=== PATIENT | female | born 1960 | race Caucasian/White ===

== ENCOUNTER → 2017-11-28 | Day surgery (SDC) | payer OTHER ==
[~2017-11-28] MED LIST: CIPRO500 M1 PO; FLAGYL250 M1 PO; MONTELUKAST SOD10 M1 PO; ZQUIL
--- NOTE | 2017-11-28 17:51 | Operative Report ---
Operative/Inv Procedure Report Surgery Date: 11/28/17 Name of Procedure: cystocele repair with mesh, enterocele and rectocele repair with Acell mesh, urethral sling and cystoscopy Pre-Operative Diagnosis: cystocele grade 4, enterocele grade 4 and rectocele grade 4, stress incontinence Post-Operative Diagnosis: same Estimated Blood Loss: 250cc Surgeon/Security Operations Specialist: Pearl Yoo MD Anesthesia: laryngeal mask airway Implants: vaginal mesh Drains: 16 fr bernstein Specimens: none Complications: none Condition: stable Operative Indication: symptomatic pelvic organ prolapse Operative/Procedure Note Note: Operative report on Nahum Grewal. This is a 56-year-old female with symptomatic pelvic organ prolapse of the bladder, intestines and rectum with stress incontinence. She was not interested in a pessary. She was eager to move forward with prolapse surgery. She was given the risks benefits and alternatives of the surgery and all questions were answered in the office. All consent signing the consent in the holding area all of the risks benefits and alternatives were reviewed again and all questions were answered again. Patient was taken to the operating room placed on the operating table in the supine position. Timeout was performed. IV antibiotics were infused. LMA general anesthesia was started. When she was completely anesthetized she was placed the dorsal lithotomy position. She was shaved to the genitalia region. Stool was evacuated from her rectal vault prior to proceeding with the surgery. She was prepped and draped in the standard sterile fashion. Bernstein catheter was placed and the bladder was drained. The Bernstein was clamped and placed on the abdomen. A Fontana retractor was placed with 6 stay hooks. The cystocele portion of the case was started with 1% lidocaine with epinephrine infiltrated into the anterior vaginal wall. An incision was made from the bladder neck to the vaginal apex. The vaginal flaps are created taking care not to injure the bladder. Once the bladder was completely dissected free and the retroperitoneal space was entered the sacrospinous process was easily palpated and the ligaments were clear on both sides. The Unasyn was then opened and used to place the Prolene sutures through the ligament and the bladder neck on the right and left side. The first By mouth thin device was defective and a new one had to be open. The Restoril Coloplast mesh was then opened and used to elevate the cystocele. The 4 Prolene sutures were placed through the mesh arms and sutured down. Prior to doing this 10 mL of methylene blue were given through the IV to check for the patency of the ureters later. 2-0 Vicryl sutures were placed at the bladder neck and at the apex to secure the mesh prior to tying down the 4 Prolene sutures. Once they were tied down the bladder was elevated. The area was grossly irrigated with bacitracin irrigation. At this time the Bernstein was removed and a cystoscopy was performed. The bladder was globally inspected and there were no abnormalities. There were no tumors no trabeculation and the ureters were identified. There was excellent efflux from both ureteral orifices. Bladder was emptied with the Bernstein again. The anterior vaginal wall was then closed with 2-0 Vicryl running suture locking every third suture. Attention was then turned to the sling portion of the case. 1% lidocaine with epinephrine was infiltrated into the anterior vaginal wall beneath the urethra. Incision was made and the vaginal flaps were created taking care not to injure the urethra with the dissection carried to the obturator space. The Altis Sling kit was then opened and the sling was placed with the trochars provided. Sling was placed in a tension-free manner and tightened with a DeBakey between the urethra and the sling. Once was seen to be in good position the tightening Prolene suture was cut. The area was copiously irrigated with bacitracin irrigation and the incision was closed with 3-0 Vicryl running locking suture every third. There was no mesh in the vaginal fornices. Attention was then turned to the posterior portion of the vaginal wall. The Fontana was repositioned. 1% lidocaine with epinephrine was infiltrated into the posterior wall taking care not to injure the rectum with dissection. The vaginal lr were dissected free from the rectum without injuring the rectum. Periodic rectal exams were performed to ensure that there was no rectal injury. 2-0 Vicryl interrupted sutures were placed into the fascial defect from the vaginal apex to the posterior fourchette. The Acell mesh which had been soaking for 20 minutes is then used over the fascial defect and interrupted sutures were tied down. The rectocele was nicely reduced and periodic rectal exams showed no injury. However the enterocele was adhered to the rectocele and needed to be dissected free. The peritoneum was entered and this was closed with running 3-0 Vicryl suture. The posterior vaginal wall was then closed using interrupted 2-0 Vicryl sutures from the apex down to the posterior fourchette. 2 inch vaginal packing with bacitracin ointment was placed in the vaginal vault. Sponge and needle count were correct at the end of the case. Patient tolerated procedure well. Findings: no mesh in bladder, urethra or vaginal fornices good ureteral efflux bilaterally with cystoscopy Discharge Disposition: PACU
== END ==
LOC: STS 02:19
DX: N81.10 Cystocele, unspecified (principal); N81.6 Rectocele; N39.3 Stress incontinence (female) (male); I10 Essential (primary) hypertension; I25.10 Atherosclerotic heart disease of native coronary artery without angina pectoris; Z98.61 Coronary angioplasty status; D68.2 Hereditary deficiency of other clotting factors; K21.9 Gastro-esophageal reflux disease without esophagitis
CPT/HCPCS: C1771; C1781; J0690; J2250; J2405; Q9968

== ENCOUNTER 2018-07-04 16:57 | Inpatient (IN) | payer OTHER ==
[~2018-07-04] VITALS: Ht 162.6 cm; Wt 85.0 kg
[2018-07-04 17:53] LABS: ABSOLUTE BASOPHIL COUNT 0.1 /CUMM (0.0-0.2); ABSOLUTE EOSINOPHIL COUNT 0 /CUMM (0.0-0.7); ABSOLUTE LYMPH COUNT 2.2 /CUMM (1.2-3.4); ABSOLUTE MONOCYTE COUNT 0.7 /CUMM (0.10-0.60); BASOPHIL % 0.3 % (0.0-2.0); EOSINOPHIL % 0.2 % (0-5); HEMATOCRIT 40.9 % (37-47); MEAN CORPUSCULAR HGB 29.3 PG (27.0-31.0); MEAN CORPUSCULAR HGB CONC 33.9 G/DL (33.0-37.0); MEAN CORPUSCULAR VOLUME 86.6 FL (81.0-99.0); MEAN PLATELET VOLUME 7.6 FL (7.4-10.4); PLATELET COUNT 365 /CUMM (130-400); RBC DISTRIBUTION WIDTH 14.5 % (11.5-14.5); RED BLOOD CELL CT 4.72 /CUMM (4.20-5.40); WHITE BLOOD CELL COUNT 15.1 /CUMM (4.8-10.8)
--- NOTE | 2018-07-04 18:08 | ED GI/GU/ABDOMINAL COMPLAINT ---
History of Present Illness General Chief Complaint: Abdominal Pain/Flank Pain Stated Complaint: SENT BY URGENT CARE FOR ABD. PAIN Source: patient, family, old records Exam Limitations: no limitations Vital Signs & Intake/Output Vital Signs & Intake/Output Vital Signs Date Time Temp Pulse Resp B/P B/P Pulse O2 O2 Flow FiO2 Mean Ox Delivery Rate 07/04 2100 97.7 56 16 122/60 98 Room Air 07/04 1925 96.8 66 18 142/61 100 Room Air 07/04 1917 Room Air 07/04 1702 96.4 56 18 145/77 100 Room Air Allergies Coded Allergies: Influenza Virus Vaccines (RASH, HIVES 06/22/16) Reconcile Medications Aspirin (Ecotrin*) 81 MG TABLET.DR 1 TAB PO DAILY HEART/BLOOD (Reported) Cholecalciferol (Vitamin D3) (Vitamin D) 2,000 UNIT CAPSULE 2 CAP PO DAILY SUPPLEMENT (Reported) Clopidogrel Bisulfate (Clopidogrel) 75 MG TABLET 1 TAB PO DAILY BLOOD THINNER (Reported) Cyclobenzaprine HCl 5 MG TABLET 1 TAB PO QPM MUSCLE SPASMS (Reported) Evolocumab (Repatha Sureclick) 140 MG/ML PEN.INJCTR 140 MG SC Q2W CHOLESTEROL (Reported) Fish Oil/Borage/Flax/Om3,6,9#1 (Triple [place] Complex 3-6-9) (Unknown Strength) CAPSULE 2 CAP PO BID SUPPLEMENT (Reported) Lisinopril 2.5 MG TABLET 1 TAB PO DAILY HEART (Reported) Metoprolol Tartrate 25 MG TABLET 0.5 TAB PO BID HEART (Reported) Montelukast Sodium 10 MG TABLET 1 TAB PO DAILY ALLERGIES (Reported) Multivit-Min/FA/Lycopen/Lutein (Centrum Silver Tablet) 0.4 MG-300 MCG-250 MCG TABLET 1 TAB PO DAILY SUPPLEMENT (Reported) Saccharomyces Boulardii (Probiotic) (Unknown Strength) CAPSULE (Unknown Dose) PO DAILY SUPPLEMENT (Reported) Vitamin B Complex 1 EACH CAPSULE 1 CAP PO DAILY SUPPLEMENT (Reported) Triage Note: PT STATES SHE HAS PAIN IN HER RIGHT SIDE. PT STATES THINKS SHE HAS A UTI FOR THE PAST TWO DAYS. PT DID NOT GO ON ABX. PT STATES THIS PAIN IS IN HER BACK INTO SIDE BILAT. Triage Nurses Notes Reviewed? yes ? N Is pt currently ? No HPI: Patient was sent in from urgent care for evaluation of right upper quadrant pain. Patient states the pain started this morning and has been constant since then. The pain radiates through to her back. The pain is 10 out of 10. Positive nausea and vomiting. The pain is "a really bad hurt." Patient denies any fevers or chills. Patient also states that she has a recurrent UTI and is now getting a pressure sensation in her pubic area. There is no radiation. There are no aggravating or mitigating factors. She rates the pain as moderate on the pain scale. (Rod Carrasquillo MD) Past History Travel History Traveled to [place] past 21 day No Medical History Any Pertinent Medical History? see below for history Neurological: NONE EENT: NONE Cardiovascular: hyperlipidemia, myocardial infarction Respiratory: NONE Gastrointestinal: NONE Hepatic: NONE Renal: KIDNEY STONES Musculoskeletal: NONE Psychiatric: NONE Endocrine: NONE Blood Disorders: NONE Cancer(s): NONE HISTORIAN DRAMATIC ARTS/Reproductive: NONE Surgical History Surgical History: PTCA WITH STENT Psychosocial History Who do you live with Spouse What is your primary language Sudanese Tobacco Use: Quit >30 days ago ETOH Use: denies use Illicit Drug Use: denies illicit drug use Family History Hx Contributory? No (Rod Carrasquillo MD) Review of Systems Review of Systems Constitutional: Reports: no symptoms. EENTM: Reports: no symptoms. Respiratory: Reports: no symptoms. Cardiovascular: Reports: no symptoms. GI: Reports: see HPI, abdominal pain. Genitourinary: Reports: see HPI. Musculoskeletal: Reports: no symptoms. Skin: Reports: no symptoms. Neurological/Psychological: Reports: no symptoms. Hematologic/Endocrine: Reports: no symptoms. Immunologic/Allergic: Reports: no symptoms. All Other Systems: Reviewed and Negative (Rod Carrasquillo MD) Physical Exam Physical Exam General Appearance: well developed/nourished, alert, awake, anxious, moderate distress Head: atraumatic, normal appearance Eyes: Bilateral: PERRL, EOMI. Ears, Nose, Throat, Mouth: hearing grossly normal, DRY MUCOSA Neck: normal inspection, supple, full range of motion Respiratory: normal breath sounds, chest non-tender, no respiratory distress, lungs clear Cardiovascular: regular rate/rhythm, normal peripheral pulses Gastrointestinal: normal bowel sounds, non-tender, no organomegaly, guarding, tenderness Back: normal inspection, normal range of motion Extremities: normal range of motion Neurologic/Psych: no motor/sensory deficits, awake, alert, oriented x 3, normal gait, normal mood/affect Skin: intact, normal color, warm/dry Core Measures ACS in differential dx? No Sepsis Present: No Sepsis Focused Exam Completed? No (Foreign LUNA,Rod Lowry) Progress Differential Diagnosis: biliary colic, cholecystitis, diverticulitis, gastritis, hepatitis, ischemic bowel, inflamm bowel dis, pancreatitis, peptic ulcer, PUD/ GERD, UTI/pyelo Plan of Care: Orders Procedure Date/time Status Clear Liquid Diet 07/[address] in observation 07/04 2315 Active Misc Message 07/04 2241 Active ED Holding Orders 07/04 2241 Active Vital Signs 07/04 2241 Active Code Status 07/04 2241 Active Add-on Test (ER Only) 07/04 181 Active EKG 07/04 181 Active TROPONIN LEVEL 07/04 174 Complete LIPASE 07/04 174 Complete AMYLASE 07/04 174 Complete URINALYSIS 07/04 170 Complete HIGH SENSITIVITY CRP 07/04 1709 Complete COMPREHENSIVE METABOLIC PANEL 07/04 1709 Complete CBC WITHOUT DIFFERENTIAL 07/04 170 Complete Laboratory Tests 07/04/18 1925: Urine Color YEL, Urine Clarity HAZY H, Urine pH 6.0, Ur Specific [place] 1.010, Urine Protein NEG, Urine Ketones 15 H, Urine Nitrite POS H, Urine Bilirubin NEG, Urine Urobilinogen 0.2, Ur Leukocyte Esterase LARGE H, Ur Microscopic SEDIMENT EXAMINED, Urine RBC 1-3, Urine WBC 25-50 H, Ur Epithelial Cells RARE, Urine Bacteria MANY H, Urine Hemoglobin MOD H, Urine Glucose NEG 07/04/18 1741: Anion Gap 9, Estimated GFR > 60, BUN/Creatinine Ratio 25.7 H, Glucose 109 H, Calcium 9.9, Total Bilirubin 0.7, AST 33, ALT 33, Alkaline Phosphatase 88, Troponin I < 0.01, C-React Prot High Sens 10.1 H, Total Protein 7.7, Albumin 4.5, Globulin 3.2, Albumin/Globulin Ratio 1.4, Amylase 55, Lipase 48, CBC w Diff NO MAN DIFF REQ, RBC 4.72, MCV 86.6, MCH 29.3, MCHC 33.9, RDW 14.5, MPV 7.6, Gran % 80.0 H, Lymphocytes % 14.5 L, Monocytes % 5.0, Eosinophils % 0.2, Basophils % 0.3, Absolute Granulocytes 12.0 H, Absolute Lymphocytes 2.2, Absolute Monocytes 0.7 H, Absolute Eosinophils 0, Absolute Basophils 0.1 Initial ED EKG: PENDING Hand-Off Endorsed To: Jordin Mendoza MD Endorsed Time: 1899 Pending: CT, EKG (Foreign LUNA,Rod Lowry) Radiology Impression: REPORT REVIEWED, LARGE GALLSTONE BUT NO INDICATION OF ACUTE CHOLECYSTITIS. Comments: 07/04/2018 7:24:31 PM patient signed out to me by Dr. Carrasquillo at shift exchange specialist. 07/04/2018 8:43:33 PM I have updated Rachel on her test results. Unfortunately she is quite nauseous and is vomiting in a basin. I have ordered additional Zofran and will contact the surgeons for possible cholecystectomy. 07/04/2018 9:23:39 PM patient's case discussed with Uzair Murcia MD, surgical PA paged. 07/04/2018 10:00:30 PM patient has been evaluated by the surgical PA who feels the patient would benefit from hospitalization to see have her abdominal pain settles on a low-fat diet. He states that the patient is not a candidate for surgical intervention given her recent history of stent placement for coronary artery disease and interactive urinary tract infection. 07/04/2018 10:14:01 PM patient's case discussed with Dr. Haney. 07/04/2018 11:07:50 PM awaiting call from case management to decide on patient's hospitalization (full admission versus observation stay). (Jordin Mendoza MD) Departure Departure Disposition: STILL A PATIENT Condition: Stable Clinical Impression Primary Impression: Upper abdominal pain, unspecified Referrals: Ling Armenta MD (PCP/Family) Departure Forms: Customer Survey General Discharge Information (Rod Carrasquillo MD) Observation Note Spoke With: Evi Haney MD Patient In: Non-ED OBS Care Area Rationale for Observation: My rational for observation is as follows patient presents clinically with biliary colic and does have a large gallstone on CAT scan. She is not a candidate for traditional cholecystectomy given her current urinary tract infection and a recent cardiac stenting and treatment with Plavix. The patient has required IV narcotic pain relievers and IV antiemetics to control symptoms. I do not feel she can be treated adequately as an outpatient under the circumstances. She would likely return in worse clinical condition including dehydration given her inability to take oral nutrition or with cholecystitis if her gallbladder become secondarily infected. Patient's urinary tract infection should be treated with antibiotics and monitored for clearing. Patient should have surgical consultation for serial abdominal examinations and serial vital signs/blood tests determinations to monitor for acute cholecystitis or biliary obstruction. This patient's pain is poorly controlled or her clinical condition deteriorates then a more aggressive surgical intervention or percutaneous cholecystostomy should be considered. (Kelly LUNA,Jordin Marshall) Critical Care Note Critical Care Note Critical Care Time: 30-74 min (Kelly LUNA,Jordin Marshall)
[2018-07-04] MEDS ORDERED: LISINOPRIL2.5 M1 PO (18:17)
[2018-07-04] MEDS ORDERED: CLOPIDOGREL75 M1 PO (18:18)
[2018-07-04] MEDS ORDERED: CENTRUM SILVER1 EAC3 PO (18:19)
[2018-07-04] MEDS ORDERED: VITAMIN D2000 UNIT PO (18:19)
[2018-07-04] MEDS ORDERED: METOPROLOL TART25 M1 PO (18:19)
[2018-07-04] MEDS ORDERED: MONTELUKAST SOD10 M1 PO (18:20)
[2018-07-04] MEDS ORDERED: ASPIRIN EC81 M1 PO (18:20)
[2018-07-04] MEDS ORDERED: TRIPLE OMEGA C400 MG PO (18:21)
[2018-07-04] MEDS ORDERED: PROBIOTIC250 MG PO (18:21)
[2018-07-04] MEDS ORDERED: REPATHA SU140 MG/1 M SC (18:22)
[2018-07-04] MEDS ORDERED: VITAMIN B COMP1 EACH PO (18:22)
[2018-07-04] MEDS ORDERED: CYCLOBENZAPRINE5 M2 PO (18:23)
--- NOTE | 2018-07-04 20:17 | CT SCAN REPORT ---
EXAMINATION: CT ABDOMEN AND PELVIS WITH CONTRAST CLINICAL INFORMATION: Right upper quadrant pain COMPARISON: 06/22/2016 TECHNIQUE: Multidetector volumetric imaging was performed of the abdomen and pelvis following IV administration of 95 mL of Optiray 320 intravenous contrast. Sagittal and coronal reformatted images were obtained on the technologist's workstation. DLP: 543 mGy-cm FINDINGS: LUNG BASES: The visualized lung bases are unremarkable. LIVER, GALLBLADDER, AND BILIARY TREE: The liver is normal in size, shape, and attenuation. No focal hepatic lesion or biliary ductal dilatation is present. There is a large gallstone. There are no CT findings to suggest acute cholecystitis. No biliary ductal dilatation. PANCREAS: Unremarkable. SPLEEN: Calcified splenic granulomas. ADRENAL GLANDS: Unremarkable. KIDNEYS AND URETERS: The kidneys are normal in size, shape, and attenuation. No hydronephrosis, hydroureter, or calculi seen. No perinephric stranding. BLADDER: Unremarkable. GASTROINTESTINAL TRACT: Marked diverticulosis of the descending and sigmoid colon. No focal inflammatory process or obstruction. ABDOMINAL WALL: No significant hernia is appreciated. LYMPH NODES: Normal. VASCULAR: Unremarkable. PELVIC VISCERA: The uterus is absent. OSSEOUS STRUCTURES: Unremarkable. IMPRESSION: No focal inflammatory process or obstruction. There is extensive sigmoid and descending colon diverticulosis. There is a large gallstone. No CT evidence of acute cholecystitis.
--- NOTE | 2018-07-04 23:05 | History & Physical ---
Mio EspinozaNikolass 07/04/18 8537: General Information and HPI MD Statement: I have seen and personally examined ISABEL WARD and documented this H&P. The patient is a 57 year old F who presented with a patient stated chief complaint of [RUQ pain]. Source of Information: patient Exam Limitations: no limitations History of Present Illness: Ms. Ward is a 57 y/o F with a PMH of factor V deficiency, multiple ME s/p stent, CABG, latest in february on dual antiplt therapy and sciatica who comes in c /o worsening RUQ pain after being evaluated at a Urgent Care center. Pt states the pain started 4 days ago, was prescribed flexeril by her PCP linking it to her sciatica. At this point patient also c/o dysuria that improved with increased water intake, no antibiotics taken at that time. Pain is constant, 5/ 10 at the moment, 10/10 at its worst that started after eating a richter and egg sandwich, that progressively got worse; nonradiating and pulsating in nature, which did not alleviate with tylenol. There is no relation to PO intake. She did vomit once before coming to the ED, 3x while in the ED a nonbloody vomitus. She denies fever, chills, constipation, diarrhea, SOB, chest pain. She has had prior episodes of UTI. Of note, patient does have a surgical history with rectocele, cystocele repair in november. 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 Home Who Do You Live With? self Services at Home: None Primary Language: Macedonian ETOH Use: denies use Illicit Drug Use: denies illicit drug use Functional Ability ADLs Independent: dressing, eating, toileting, bathing. Ambulation: independent IADLs Independent: shopping, housework, finances, food prep, telephone, transportation , medication admin. Review of Systems Review of Systems Constitutional: Reports: see HPI. EENTM: Denies: blurred vision, eye pain, eye drainage, ear discharge, ear pain, throat pain, throat swelling. Cardiovascular: Denies: chest pain, edema, orthopena, palpitations. Respiratory: Denies: cough, hemoptysis, short of breath, sputum production. GI: Reports: see HPI, abdominal pain, nausea, vomiting (NONBLOODY). Denies: constipation, diarrhea, distention, bowel incontinence. Genitourinary: Reports: see HPI, dysuria. Denies: discharge, frequency, hematuria, pain. Musculoskeletal: Reports: back pain. Skin: Reports: no symptoms. Neurological/Psychological: Reports: no symptoms. Hematologic/Endocrine: Reports: no symptoms. Exam & Diagnostic Data Last 24 Hrs of Vital Signs/I&O Vital Signs Date Time Temp Pulse Resp B/P B/P Pulse O2 O2 Flow FiO2 Mean Ox Delivery Rate 07/04 2338 78 18 124/60 97 Room Air 07/04 2100 97.7 56 16 122/60 98 Room Air 07/04 192 96.8 66 18 142/61 100 Room Air 07/04 1917 Room Air 07/04 1702 96.4 56 18 145/77 100 Room Air Intake & Output 07/05 0800 07/05 0000 07/04 1600 Intake Total 1000 Output Total Balance 1000 Intake, IV 1000 Patient 187 lb Weight Weight Reported by Patient Measurement Method Physical Exam General Appearance Alert, Oriented X3, Cooperative, No Acute Distress Skin No Rashes, No Significant Lesion Skin Temp/Moisture Exam: Warm/Dry HEENT Atraumatic, PERRLA, EOMI, Mucous Membr. moist/pink Neck Supple Cardiovascular Regular Rate, Normal S1, Normal S2, No Murmurs Lungs Clear to Auscultation, Normal Air Movement Abdomen Normal Bowel Sounds, Soft, No visible lesions. Soft, nondistended. Tender to deep palpation on particularly in RUQ. Negative solis's. Positive CVA tenderness on the right. Extremities No Clubbing, No Edema Last 24 Hrs of Labs/Vin: Laboratory Tests 07/04/181924: Urine Color YEL, Urine Clarity HAZY H, Urine pH 6.0, Ur Specific [place] 1.010, Urine Protein NEG, Urine Ketones 15 H, Urine Nitrite POS H, Urine Bilirubin NEG, Urine Urobilinogen 0.2, Ur Leukocyte Esterase LARGE H, Ur Microscopic SEDIMENT EXAMINED, Urine RBC 1-3, Urine WBC 25-50 H, Ur Epithelial Cells RARE, Urine Bacteria MANY H, Urine Hemoglobin MOD H, Urine Glucose NEG 07/04/18 1741: Anion Gap 9, Estimated GFR > 60, BUN/Creatinine Ratio 25.7 H, Glucose 109 H, Calcium 9.9, Total Bilirubin 0.7, AST 33, ALT 33, Alkaline Phosphatase 88, Troponin I < 0.01, C-React Prot High Sens 10.1 H, Total Protein 7.7, Albumin 4.5, Globulin 3.2, Albumin/Globulin Ratio 1.4, Amylase 55, Lipase 48, CBC w Diff NO MAN DIFF REQ, RBC 4.72, MCV 86.6, MCH 29.3, MCHC 33.9, RDW 14.5, MPV 7.6, Gran % 80.0 H, Lymphocytes % 14.5 L, Monocytes % 5.0, Eosinophils % 0.2, Basophils % 0.3, Absolute Granulocytes 12.0 H, Absolute Lymphocytes 2.2, Absolute Monocytes 0.7 H, Absolute Eosinophils 0, Absolute Basophils 0.1 Assessment/Plan Assessment: Ms. Ward is a 57 y/o F with a PMH of factor V deficiency, multiple ME s/p stent, CABG, latest in february on dual antiplt therapy and sciatica who comes in c /o worsening RUQ pain. Pt states the pain started 4 days ago, was prescribed flexeril by her PCP. At this point patient also c/o dysuria that improved with increased water intake, no antibiotics. Pain is constant, 5/10 at the moment, 10 /10 at worst that started after eating a richter and egg sandwich, that progressively got worse; nonradiating in nature, that did not alleviate with tylenol. There is no relation to PO intake. She did vomit once before coming to the ED, 3x while in the ED a nonbloody vomitus. She denies fever, chills, constipation, diarrhea, SOB, chest pain. She has had prior episodes of UTI. Of note, patient does have a surgical history with rectocele, cystocele repair in november. In the ED, labs showed noted leukocytosis and a UA indicative of an UTI. She is however afebrile. CT scan did show a large gallstone, though no evidence of acute inflammatory changes. She got a dose of ceftriaxone. Noted negative Solis 's and positive CVA tenderness on the right on physical examination, with reported N/V in multiple occasions. She is admitted to the GEN MED floor for the following issues: PROBLEM LIST #RUQ/R Flank Pain, 2/2 Billiary Collic vs Pyelonephritis Patient's presentation is concerning for both billiary colic and pyelonephritis. Her story of acute worsening after eating a fatty meal would be indicative of billiary pathology, though no findings on CT scan show acute inflammation. Her history of dysuria and UA concerning for UTI is noted; particularly her leukocytosis. We will start IV ceftriaxone qD. She was evaluated by the surgical service who did not feel an inmediate intervention is warranted particularly due to her recent cardiac issues. -Ceftriaxone qD -CBC in the am -F/u BC -F/u surgical consult #H/o CAD s/p PCIs, CABG We will continue her dual antiplatelet therapy. FULL CODE NPO in case surgical intervention is needed DVT PPX subq lovenox As Ranked By This Provider Problem List: 1. Upper abdominal pain, unspecified Core Measures/Misc (07/20) Acute Coronary Syndrome ACS Diagnosis: No Congestive Heart Failure Congestive Heart Failure Diagnosis No Cerebrovascular Accident CVA/TIA Diagnosis: No VTE (View Protocol) VTE Risk Factors Age>40 No Mechanical VTE Prophylaxis d/t N/A MechProphylax Ordered No VTE Pharm Prophylaxis d/t NA PharmProphylax ordered Sepsis (View protocol) Sepsis Present: No If YES complete Sepsis Event Note If YES complete Sepsis Event Note Eulogio LUNA,[facility] 07/05/18 0207: General Information and HPI Allergies/Medications Home Med list Aspirin (Ecotrin*) 81 MG TABLET.DR 1 TAB PO DAILY HEART/BLOOD (Reported) Cholecalciferol (Vitamin D3) (Vitamin D) 2,000 UNIT CAPSULE 2 CAP PO DAILY SUPPLEMENT (Reported) Clopidogrel Bisulfate (Clopidogrel) 75 MG TABLET 1 TAB PO DAILY BLOOD THINNER (Reported) Cyclobenzaprine HCl 5 MG TABLET 1 TAB PO QPM PRN Muscle Spasms (Reported) Evolocumab (Repatha Sureclick) 140 MG/ML PEN.INJCTR 140 MG SC Q2W CHOLESTEROL (Reported) Fish Oil/Borage/Flax/Om3,6,9#1 ([place] Complex 3-6-9) (Unknown Strength) CAPSULE 2 CAP PO BID SUPPLEMENT (Reported) Lisinopril 2.5 MG TABLET 1 TAB PO DAILY HEART (Reported) Metoprolol Tartrate 25 MG TABLET 0.5 TAB PO BID HEART (Reported) Montelukast Sodium 10 MG TABLET 1 TAB PO DAILY ALLERGIES (Reported) Multivit-Min/FA/Lycopen/Lutein (Centrum Silver Tablet) 0.4 MG-300 MCG-250 MCG TABLET 1 TAB PO DAILY SUPPLEMENT (Reported) Saccharomyces Boulardii (Probiotic) (Unknown Strength) CAPSULE (Unknown Dose) PO DAILY SUPPLEMENT (Reported) Vitamin B Complex 1 EACH CAPSULE 1 CAP PO DAILY SUPPLEMENT (Reported) Observation Initial Note - I have personally examined ISABEL WARD on 07/05/18 at 0307. The disposition of ISABEL WARD is uncertain at this time and before a determination can be made, she requires a period of observation for the following reasons [IV narcotics for pain control and treatment of UTI] Core Measures/Misc (07/20) Sepsis (View protocol) If YES complete Sepsis Event Note If YES complete Sepsis Event Note Resident Review Statement Resident Statement: examined this patient, discussed with international controller, reviewed EMR data (avail) Other Findings: 57 yo F with PMH of ME s/p PCI and CABG (last in January 2018), hyperlipidemia and Factor V Leiden mutation presented to the ED for evaluation of abdominal pain that started this morning. The patient states around 4 days ago she developed dysuria which resolved on its own after a day or so. This morning after having breakfast she developed sudden severe right upper quadrant abdominal pain, radiating to her back and groin, 10/10 in severity, accompanied with nausea and nonbloody vomiting. She took some tylenol which did not provide any relief. She states having burning sensation with urination again today. She came in to the ED for further evaluation. ROS: significant for RUQ pain, back pain. Physical Exam: General Appearance: well developed/nourished, alert, awake, mild distress Head: atraumatic, normal appearance Eyes: bilateral: normal appearance and PERRLA. Ears, Nose, Throat, Mouth: hearing and speech normal, no sinus tenderness Respiratory: normal breath sounds, chest non-tender, no respiratory distress, lungs clear Cardiovascular: regular rate/rhythm, normal S1 and S2 Gastrointestinal: soft, diffuse tenderness more prominent on RUQ with negative Solis's sign Back: normal inspection, +ve CVA tenderness on right. Extremities: no edema Skin: normal inspection Assessment: 1. Likely upper urinary tract infection 2. Cholelithiasis 3. CAD s/p PCI and CABG 4. Factor V Leiden mutation Plan: * Admit patient to general medicine in obs. * Continue IV Ceftriaxone 1g daily. * Follow up blood cultures * Follow up urine urine * Pain control with IV Morphine and percocet as needed. * There does not appear to be any need of acute surgical intervention given the lack of cholecystitis. The abdominal pain could be secondary to biliary colic. While she does not have imaging findings of perinephric stranding, she does have a white count and R CVA tenderness concerning for pylonephritis. * Hydrate with D5-1/2NS. * Diet: NPO - for possible surgical intervention. Diet should be heart healthy ( low fat) when restarted. * DVT Prophylaxis: SC Lovenox * Code: Full Code Medina LUNA,Evi 07/05/18 0214: Core Measures/Misc (07/20) Sepsis (View protocol) If YES complete Sepsis Event Note If YES complete Sepsis Event Note Attending MD Review Statement Attending Statement Attending MD Statement: examined this patient, discuss w/resident/PA/LIBERAL ARTS TEACHER, agreed w/resident/PA/LIBERAL ARTS TEACHER, reviewed EMR data (avail), discussed with nursing, amended to note Attending Assessment/Plan: Patient is a 57-year-old female with history significant for coronary artery disease status post CABG and stent placement on dual antiplatelet therapy. History also significant for 445 deficiency. Presents with complaint of right upper quadrant abdominal discomfort. States the pain has been going on for about 4 days. She also gives history of back pain recently for which she saw her PCP and she was prescribed Flexeril. Patient also admits to complaints of dysuria. She had the emergency room afebrile hemodynamically stable. CT of the abdomen was only significant for a large gallstone. There is no evidence of hepatobiliary obstruction or inflammation. Her transaminase levels are within normal limits. Case was discussed with the surgical service by the ER staff. In the absence of need for urgent surgical intervention patient was referred to the medical service for further evaluation and management. On examination she appears to be in obvious discomfort complaining of diffuse abdominal pain. She reports that pain is occasionally located in the right upper quadrant. Abdomen is obese, soft, diffuse tenderness with no rebound or guarding. Normal bowel sounds. She does report some discomfort in the right costovertebral angle on palpation. Heart sounds are regular. Lungs are clear to auscultation bilaterally. She has no peripheral edema. EKG shows normal sinus rhythm with nonspecific T-wave changes. First troponin is negative. Problems: 1. Abdominal pain; query etiology. 2. Urinary tract infection 3. Coronary artery disease 4. Factor V deficiency. Plan: -Keep n.p.o. Hydrate with D5 half-normal saline at 100 cc an hour. -Optimize pain control. May utilize Tylenol IV. May utilize intravenous opioids for breakthrough pain. -Etiology of pain is unknown. The large gallstone does raise concern for biliary spasms. One would typically not expect a urinary tract infection particularly an upper urinary tract infection to cause such degree of pain without other markers of infection such as leukocytosis or fever. -Continue empiric antibiotic therapy with IV Rocephin. Follow-up urine cultures and blood cultures. -Awaiting formal consult from the general surgery service. -Continue her cardiac regimen including her dual antiplatelet therapy. Recommend consultation with the cardiology service regarding recommendations for interruption of antiplatelet therapy should she require surgical intervention. -Repeat EKG. Obtain second set of cardiac enzymes.
[2018-07-05 01:50] VITALS: BP 144/78
[2018-07-05 07:07] VITALS: BP 126/74
--- NOTE | 2018-07-05 08:40 | PN- Housestaff ---
See Addendum Subjective Follow-up For: Upper Urinary Tract Infection Cholelithiasis History of CAD s/p PCI + CABG Factor V Leiden History Subjective: Patient seen this morning with report from [facility]. She continues to have right upper quadrant abdominal pain with mild improvement since admission. She has had one episode of nonbilious non bloody vomitus overnight which she was given reglan for nausea. Patient afebrile since her stay. On IV ceftriaxone. Patients fluids discontinued today and she will be trialed on regular diet. Review of Systems Constitutional: Denies: see HPI. Objective Last 24 Hrs of Vital Signs/I&O Vital Signs Date Time Temp Pulse Resp B/P B/P Pulse O2 O2 Flow FiO2 Mean Ox Delivery Rate 07/05 0908 60 124/70 07/05 0908 60 124/70 07/05 0800 Room Air 07/05 0707 98.6 103 20 126/74 95 / 0422 58 144/78 07/05 0200 97 Room Air 07/05 0150 97.8 58 20 144/78 100 /01 2338 78 18 124/60 97 Room Air 07/04 2100 97.7 56 16 122/60 98 Room Air 07/04 1925 96.8 66 18 142/61 100 Room Air 07/04 1917 Room Air 07/04 1702 96.4 56 18 145/77 100 Room Air Intake & Output 07/05 1600 07/05 0800 07/05 0000 Intake Total 446 1000 Output Total Balance 446 1000 Intake, IV 366 1000 Intake, Oral 80 Number 0 Bowel Movements Patient 187 lb 187 lb Weight Weight Reported by Patient Measurement Method Physical Exam General Appearance: Alert, Oriented X3, Cooperative, Mild Distress Skin: No Rashes, No Breakdown Cardiovascular: Normal S1, Normal S2 Lungs: Clear to Auscultation, Normal Air Movement Abdomen: Normal Bowel Sounds, Soft, No Masses, mild tenderness to palpation in RUQ Neurological: Normal Gait, Normal Speech, Strength at 5/5 X4 Ext, Normal Tone Extremities: No Clubbing, No Cyanosis, No Edema Vascular: Normal Pulses, Pulses Symmetrical Current Medications: Current Medications Sig/Kalyani Start time Last Medication Dose Route Stop Time Status Admin Acetaminophen 650 MG Q6P PRN 07/04 2330 AC 07/05 PO 09 Aspirin Buffered 81 MG DAILY 07/05 09 AC 07/05 PO 09 Ceftriaxone Sodium 1,000 MG DAILY 07/05 2100 DC IV Ceftriaxone Sodium 1,000 MG 2100 07/05 2100 AC IV Ceftriaxone Sodium 0 .STK-MED ONE 07/04 2216 DC .ROUTE Ceftriaxone Sodium 1,000 MG ONCE ONE 07/04 2145 DC 07/04 IV 07/04 2146 221 Cholecalciferol 4,000 IU DAILY 07/05 09 AC 07/05 PO 0907 Clopidogrel Bisulfate 75 MG DAILY 07/05 900 AC 07/05 PO 0908 Cyclobenzaprine HCl 5 MG QPM PRN 07/05 0215 AC PO Dextrose/Sodium 1,000 ML Q10H 07/05 0230 DC 07/05 Chloride IV 0240 Enoxaparin Sodium 40 MG DAILY 07/05 09 AC 07/05 SC 0907 Hydromorphone HCl 0.4 MG ONCE ONE 07/05 08 DC IV 07/05 08 Hydromorphone HCl 0.4 MG ONCE ONE 07/05 0400 DC 07/05 IV 07/05 0401 0430 Hydromorphone HCl 0 .STK-MED ONE 07/04 1915 DC .ROUTE Hydromorphone HCl 1 MG ONCE ONE 07/04 190 DC 07/04 IV 07/04 190 192 Ketorolac 0 .STK-MED ONE 07/04 2010 DC Tromethamine .ROUTE Lisinopril 2.5 MG DAILY 07/05 900 AC 07/05 PO 09 Metoclopramide HCl 10 MG Q6P PRN 07/05 0400 AC 07/05 IV 0913 Metoclopramide HCl 10 MG ONCE ONE 07/04 2145 DC 07/04 IV 07/04 2146 214 Metoclopramide HCl 0 .STK-MED ONE 07/04 2139 DC .ROUTE Metoprolol Tartrate 12.5 MG BID 07/05 0300 AC 07/05 PO 0908 Montelukast Sodium 10 MG 07/05 2100 AC PO Morphine Sulfate 2 MG Q6P PRN 07/04 2330 AC IV Morphine Sulfate 0 .STK-MED ONE 07/04 181 DC .ROUTE Morphine Sulfate 4 MG ONCE ONE 07/04 1815 DC 07/04 IV 07/04 1816 1838 Omeprazole 20 MG ONCE ONE 07/05 09 DC 07/05 PO 07/05 09 09 Ondansetron HCl 0 .STK-MED ONE 07/04 2049 DC .ROUTE Ondansetron HCl 4 MG ONCE ONE 07/04 2045 DC 07/04 IV 07/04 Ondansetron HCl 4 MG ONCE ONE 07/04 183 DC 07/04 IV 07/04 1831 183 Ondansetron HCl 0 .STK-MED ONE 07/04 1822 DC .ROUTE Oxycodone/ 1 TAB Q6P PRN 07/04 2330 AC Acetaminophen PO Sodium Chloride 1,000 ML BOLUS ONE 07/04 181 DC 07/04 IV 07/04 1914 1838 Last 24 Hrs of Lab/Vin Results Last 24 Hrs of Labs/Mics: Laboratory Tests 07/05/18 1100: Sodium Pending, Potassium Pending, Chloride Pending, Carbon Dioxide Pending, Anion Gap Pending, BUN Pending, Creatinine Pending, BUN/Creatinine Ratio Pending , CBC w Diff Pending, WBC Pending, RBC Pending, Hgb Pending, Hct Pending, MCV Pending, MCH Pending, MCHC Pending, RDW Pending, Plt Count Pending, MPV Pending 07/05/18 0325: Troponin I 0.02 07/04/18 1925: Urine Color YEL, Urine Clarity HAZY H, Urine pH 6.0, Ur Specific Elliott 1.010, Urine Protein NEG, Urine Ketones 15 H, Urine Nitrite POS H, Urine Bilirubin NEG, Urine Urobilinogen 0.2, Ur Leukocyte Esterase LARGE H, Ur Microscopic SEDIMENT EXAMINED, Urine RBC 1-3, Urine WBC 25-50 H, Ur Epithelial Cells RARE, Urine Bacteria MANY H, Urine Hemoglobin MOD H, Urine Glucose NEG 07/04/18 1741: Anion Gap 9, Estimated GFR > 60, BUN/Creatinine Ratio 25.7 H, Glucose 109 H, Calcium 9.9, Total Bilirubin 0.7, AST 33, ALT 33, Alkaline Phosphatase 88, Troponin I < 0.01, C-React Prot High Sens 10.1 H, Total Protein 7.7, Albumin 4.5, Globulin 3.2, Albumin/Globulin Ratio 1.4, Amylase 55, Lipase 48, CBC w Diff NO MAN DIFF REQ, RBC 4.72, MCV 86.6, MCH 29.3, MCHC 33.9, RDW 14.5, MPV 7.6, Gran % 80.0 H, Lymphocytes % 14.5 L, Monocytes % 5.0, Eosinophils % 0.2, Basophils % 0.3, Absolute Granulocytes 12.0 H, Absolute Lymphocytes 2.2, Absolute Monocytes 0.7 H, Absolute Eosinophils 0, Absolute Basophils 0.1 Assessment/Plan Assessment: 57 yo F with PMH of MD s/p PCI and CABG (last in January 2018), hyperlipidemia and Factor V Leiden mutation presented to the ED for evaluation of abdominal pain that started morning of admission. The patient states around 4 days ago she developed dysuria which resolved on its own after a day or so. This morning after having breakfast she developed sudden severe right upper quadrant abdominal pain, radiating to her back and groin, 10/10 in severity, accompanied with nausea and nonbloody vomiting. She took some tylenol which did not provide any relief. She states having burning sensation with urination again today. She came in to the ED for further evaluation. Case was discussed with the surgical service by ER staff and in absence of surgical intervention she was referred to medical service for furthe revaluation. ED, labs showed noted leukocytosis and a UA indicative of an UTI. She is however afebrile. CT scan did show a large gallstone, though no evidence of acute inflammatory changes. She got a dose of ceftriaxone. Noted negative Solis's and positive CVA tenderness on the right on physical examination, 07/05: Patient has leukocytosis of 14.8 on day 2 IV Rocephin with positive urine culture of E. Coli that is wesley senstivie. Imaging noted for gallstones and negative for cholecystitis. + CVA tenderness on examination. Patient afebrile. Advanced to a regular diet. PROBLEM LIST: 1. Likely upper urinary tract infection 2. Cholelithiasis 3. CAD s/p PCI and CABG 4. Factor V Leiden mutation PLAN: * Continue observation on general medicine flow * IV Ceftriaxone Day 2 1g Daily * Urine culture from 07/02 positive for E. Coli that is wesley-senstive * Patient initiallyhydrated with D5 1/2 NS at 100/hr - discontinued today as patietn will be on a Regular Diet * Pain Control: Tylenol, Flexeril, Morphine 2mg Q6 PRN IV, Percocet Q6 PRN * Continue cardiac regimen and her dual antiplatelet therapy Code Status: Full Code Diet: Advanced to regular - see as tolerated DVT PPX: ALPS ambulation Problem List: 1. Upper abdominal pain, unspecified Pain Ratin Pain Location: RUQ pain Pain Goal: Pain 4 or less Pain Plan: as per pain pathway Tomorrow's Labs & Rationales: cbc bep
[2018-07-05 11:18] LABS: ABSOLUTE BASOPHIL COUNT 0 /CUMM (0.0-0.2); ABSOLUTE EOSINOPHIL COUNT 0 /CUMM (0.0-0.7); ABSOLUTE GRANULOCYTE CT 12.2 /CUMM (1.4-6.5); ABSOLUTE LYMPH COUNT 1.2 /CUMM (1.2-3.4); ABSOLUTE MONOCYTE COUNT 1.3 /CUMM (0.10-0.60); BASOPHIL % 0.3 % (0.0-2.0); EOSINOPHIL % 0 % (0-5); GRANULOCYTE % 82.7 % (42.2-75.2); HEMATOCRIT 37.2 % (37-47); MEAN CORPUSCULAR HGB CONC 34.8 G/DL (33.0-37.0); MEAN CORPUSCULAR VOLUME 86.3 FL (81.0-99.0); MEAN PLATELET VOLUME 7.6 FL (7.4-10.4); PLATELET COUNT 353 /CUMM (130-400); RBC DISTRIBUTION WIDTH 14.3 % (11.5-14.5); RED BLOOD CELL CT 4.31 /CUMM (4.20-5.40); WHITE BLOOD CELL COUNT 14.8 /CUMM (4.8-10.8)
[2018-07-05 14:30] VITALS: BP 118/60
--- NOTE | 2018-07-05 18:21 | Cons- General Surgery ---
General Information and HPI Consulting Request Date of Consult: 07/05/18 Requested By: New Harrison MD Reason for Consult: cholecystitis Source of Information: patient Exam Limitations: no limitations History of Present Illness: CC: abdominal pain HPI: 57-year-old yo ?diabetic ex-smoker overweight, GERD, heterozygous factor V Leiden, history of [place] in 2011 and then recently this past January she's had several coronary stents and also coronary artery bypass 3 vessels and is currently on Plavix, presented to the ER yesterday c/o RUQ / epigastric pain severe (worse yesterday), no prior episodes like this, pain was constant radiates straight through to upper back onset yesterday after a richter and egg and cheese sandwich for breakfast which she hasn't had in a while, as she's been more careful with her diet. There was associated vomiting but no fevers no diarrhea, no particular darkening of urine (ie iced tea) or lightening / loose stools (sotomayor), there is a FHx of gallbladder problems son / daughter. She has also been on Abx for UTI, which have been more common this year. Otherwise no changes bowel habits, weight or appetite. I've reviewed the PFSH. No issues with anesthesia. Family history is also positive for heart disease DM in mother, sister hypertension, father factor 5 Leiden Allergies/Medications Allergies: Coded Allergies: Influenza Virus Vaccines (RASH, HIVES 06/22/16) Home Med List: Aspirin (Ecotrin*) 81 MG TABLET.DR 1 TAB PO DAILY HEART/BLOOD (Reported) Cholecalciferol (Vitamin D3) (Vitamin D) 2,000 UNIT CAPSULE 2 CAP PO DAILY SUPPLEMENT (Reported) Clopidogrel Bisulfate (Clopidogrel) 75 MG TABLET 1 TAB PO DAILY BLOOD THINNER (Reported) Cyclobenzaprine HCl 5 MG TABLET 1 TAB PO QPM PRN Muscle Spasms (Reported) Evolocumab (Repatha Sureclick) 140 MG/ML PEN.INJCTR 140 MG SC Q2W CHOLESTEROL (Reported) Fish Oil/Borage/Flax/Om3,6,9#1 (Triple [place] Complex 3-6-9) (Unknown Strength) CAPSULE 2 CAP PO BID SUPPLEMENT (Reported) Lisinopril 2.5 MG TABLET 1 TAB PO DAILY HEART (Reported) Metoprolol Tartrate 25 MG TABLET 0.5 TAB PO BID HEART (Reported) Montelukast Sodium 10 MG TABLET 1 TAB PO DAILY ALLERGIES (Reported) Multivit-Min/FA/Lycopen/Lutein (Centrum Silver Tablet) 0.4 MG-300 MCG-250 MCG TABLET 1 TAB PO DAILY SUPPLEMENT (Reported) Saccharomyces Boulardii (Probiotic) (Unknown Strength) CAPSULE (Unknown Dose) PO DAILY SUPPLEMENT (Reported) Vitamin B Complex 1 EACH CAPSULE 1 CAP PO DAILY SUPPLEMENT (Reported) Current Medications: Current Medications Sig/Kalyani Start time Last Medication Dose Route Stop Time Status Admin Acetaminophen 650 MG Q6P PRN 07/04 2330 AC 07/05 PO 0914 Aspirin Buffered 81 MG DAILY 07/05 900 AC 07/05 PO 0907 Calcium Carbonate 500 MG Q4 HRS NEEDED PRN 07/05 1445 AC 07/05 PO 1435 Calcium Carbonate 0 .STK-MED ONE 07/05 1433 DC PO Ceftriaxone Sodium 1,000 MG DAILY 07/05 2100 DC IV Ceftriaxone Sodium 1,000 MG 2100 07/05 2100 AC IV Ceftriaxone Sodium 0 .STK-MED ONE 07/04 2216 DC .ROUTE Ceftriaxone Sodium 1,000 MG ONCE ONE 07/04 214 DC 07/04 IV 07/04 2146 2215 Cholecalciferol 4,000 IU DAILY 07/05 09 AC 07/05 PO 09 Clopidogrel Bisulfate 75 MG DAILY 07/05 09 AC 07/05 PO 0908 Cyclobenzaprine HCl 5 MG QPM PRN 07/05 0215 AC PO Dextrose/Sodium 1,000 ML Q10H 07/05 0230 DC 07/05 Chloride IV 0240 Enoxaparin Sodium 40 MG DAILY 07/05 0900 AC 07/05 SC 0907 Hydromorphone HCl 0.4 MG ONCE ONE 07/05 1530 DC 07/05 IV 07/05 1531 1555 Hydromorphone HCl 0.4 MG Q4P PRN 07/05 1530 AC IV Hydromorphone HCl 0.4 MG ONCE ONE 07/05 0800 DC IV 07/05 0801 Hydromorphone HCl 0.4 MG ONCE ONE 07/05 0400 DC 07/05 IV 07/05 0401 0430 Hydromorphone HCl 0 .STK-MED ONE 07/04 1915 DC .ROUTE Hydromorphone HCl 1 MG ONCE ONE 07/04 1900 DC 07/04 IV 07/04 190 1928 Ketorolac 0 .STK-MED ONE 07/04 2010 DC Tromethamine .ROUTE Lisinopril 2.5 MG DAILY 07/05 0900 AC 07/05 PO 0908 Metoclopramide HCl 10 MG Q6P PRN 07/05 0400 AC 07/05 IV 1437 Metoclopramide HCl 10 MG ONCE ONE 07/04 214 DC 07/04 IV 07/04 2146 2145 Metoclopramide HCl 0 .STK-MED ONE 07/04 213 DC .ROUTE Metoprolol Tartrate 12.5 MG BID 07/05 0300 AC 07/05 PO 0908 Montelukast Sodium 10 MG 2100 07/05 2100 AC PO Morphine Sulfate 2 MG Q6P PRN 07/04 2330 AC IV Morphine Sulfate 0 .STK-MED ONE 07/04 181 DC .ROUTE Morphine Sulfate 4 MG ONCE ONE 07/04 181 DC 07/04 IV 07/04 1816 1838 Omeprazole 20 MG ONCE ONE 07/05 09 DC 07/05 PO 07/05 0901 0907 Ondansetron HCl 0 .STK-MED ONE 07/04 2049 DC .ROUTE Ondansetron HCl 4 MG ONCE ONE 07/04 2045 DC 07/04 IV 07/04 2046 2045 Ondansetron HCl 4 MG ONCE ONE 07/04 1830 DC 07/04 IV 07/04 1831 1838 Ondansetron HCl 0 .STK-MED ONE 07/04 1822 DC .ROUTE Oxycodone/ 1 TAB Q6P PRN 07/04 2330 AC Acetaminophen PO Sodium Chloride 1,000 ML BOLUS ONE 07/04 181 DC 07/04 IV 07/04 1914 1838 Past History Medical History Neurological: NONE EENT: NONE Cardiovascular: hyperlipidemia, myocardial infarction Respiratory: NONE Gastrointestinal: NONE Hepatic: NONE Renal: KIDNEY STONES Musculoskeletal: NONE Psychiatric: NONE Endocrine: NONE Blood Disorders: NONE Cancer(s): NONE 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 Home Who Do You Live With? self Services at Home: None Primary Language: Malay Smoking Status: Former Smoker ETOH Use: denies use Illicit Drug Use: denies illicit drug use Functional Ability ADLs Independent: dressing, eating, toileting, bathing. Ambulation: independent IADLs Independent: shopping, housework, finances, food prep, telephone, transportation , medication admin. Review of Systems Review of Systems: Constitutional: No fever, sweats or weight loss ENMT: No sore throat Cardiovascular: No chest pain, palpitations or leg swelling Respiratory: No shortness of breath, cough, or sputum or dyspnea on exertion GI: No bleeding per rectum :dysuria hnoematuria Musculoskeletal: No new muscle weakness, bone or joint pain Skin / Breast: No jaundice, rashes or itching Psychiatric: No history of drug or alcohol abuse no depression or anxiety Hematologic / lymphatic system: No problems with excessive bleeding, bruising, or blood clots Exam & Diagnostic Data Vital Signs and I&O Reviewed Vital Signs Date Time Temp Pulse Resp B/P B/P Pulse O2 O2 Flow FiO2 Mean Ox Delivery Rate 07/05 1430 97.0 66 20 118/60 97 Room Air 07/05 0908 60 124/70 07/05 0908 60 124/70 07/05 0800 Room Air 07/05 0707 98.6 103 20 126/74 95 /02 0422 58 144/78 07/05 0200 97 Room Air 07/05 0150 97.8 58 20 144/78 100 09/01 2338 78 18 124/60 97 Room Air 07/04 2100 97.7 56 16 122/60 98 Room Air 07/04 1925 96.8 66 18 142/61 100 Room Air 07/04 1917 Room Air Intake & Output 07/05 1600 07/05 0800 07/05 0000 07/04 1600 07/04 0800 07/04 0000 Intake Total 941 006 8263 Output Total Balance 791 412 2904 Intake, IV 886 795 6992 Intake, Oral 240 80 Number 0 Bowel Movements Patient 187 lb 187 lb Weight Weight Reported by Patient Measurement Method Physical Exam: Constitutional: pleasant, no acute distress, conversant Eyes: sclera anicteric ENMT: ears and nose atraumatic, moist mucous membranes, good dentition, no lip lesions Neck: Supple, trachea is midline, no cervical or supraclavicular adenopathy and no palpable thyromegaly Cardiovascular: S1, S2, no murmurs, no peripheral edema Respiratory: clear to auscultation with normal respiratory effort and no intercostal retractions GI: abdomen soft, mild right upper quadrant tenderness no rebound no guarding, nondistended, no palpable hepatosplenomegaly Extremities / lymphatics: symmetrically warm, free range of motion no peripheral edema, no cervical, supraclavicular, axillary, or inguinal adenopathy Musculoskeletal: Did not evaluate gait and station, no digital cyanosis, good muscle strength and tone no atrophy, motor grossly 5 out of 5 throughout Skin: no jaundice, no rashes warm, nondiaphoretic, no areas of erythema or induration Psychiatric: mood and affect are appropriate and alert and oriented to person place and time Last 24 Hours of Labs: I reviewed Laboratory Tests 07/05 07/05 1100 0325 Chemistry Sodium (137 - 145 mmol/L) 137 Potassium (3.5 - 5.1 mmol/L) 3.5 Chloride (98 - 107 mmol/L) 101 Carbon Dioxide (22 - 30 mmol/L) 24 Anion Gap (5 - 16) 12 BUN (7 - 17 mg/dL) 9 Creatinine (0.5 - 1.0 mg/dL) 0.5 Estimated GFR (>60 ml/min) > 60 BUN/Creatinine Ratio (7 - 25 %) 18.0 Total Bilirubin (0.2 - 1.3 mg/dL) 0.6 Direct Bilirubin (< 0.4 mg/dL) 0.1 AST (14 - 36 U/L) 26 ALT (9 - 52 U/L) 31 Alkaline Phosphatase (<127 U/L) 77 Troponin I (< 0.11 ng/ml) 0.02 Total Protein (6.3 - 8.2 g/dL) 6.8 Albumin (3.5 - 5.0 g/dL) 3.9 Amylase (30 - 110 U/L) 39 Lipase (23 - 300 U/L) 67 Hematology CBC w Diff NO MAN DIFF REQ WBC (4.8 - 10.8 /CUMM) 14.8 H RBC (4.20 - 5.40 /CUMM) 4.31 Hgb (12.0 - 16.0 G/DL) 12.9 Hct (37 - 47 %) 37.2 MCV (81.0 - 99.0 FL) 86.3 MCH (27.0 - 31.0 PG) 30.0 MCHC (33.0 - 37.0 G/DL) 34.8 RDW (11.5 - 14.5 %) 14.3 Plt Count (130 - 400 /CUMM) 353 MPV (7.4 - 10.4 FL) 7.6 Gran % (42.2 - 75.2 %) 82.7 H Lymphocytes % (20.5 - 51.1 %) 7.9 L Monocytes % (1.7 - 9.3 %) 9.1 Eosinophils % (0 - 5 %) 0 Basophils % (0.0 - 2.0 %) 0.3 Absolute Granulocytes (1.4 - 6.5 /CUMM) 12.2 H Absolute Lymphocytes (1.2 - 3.4 /CUMM) 1.2 Absolute Monocytes (0.10 - 0.60 /CUMM) 1.3 H Absolute Eosinophils (0.0 - 0.7 /CUMM) 0 Absolute Basophils (0.0 - 0.2 /CUMM) 0 07/04 1925 Urines Urine Color (YEL,AMB,STR) YEL Urine Clarity (CLEAR) HAZY H Urine pH (5.0 - 8.0) 6.0 Ur Specific [place] (1.001 - 1.035) 1.010 Urine Protein (NEG,<30 MG/DL) NEG Urine Ketones (NEG) 15 H Urine Nitrite (NEG) POS H Urine Bilirubin (NEG) NEG Urine Urobilinogen (0.1 - 1.0 EU/dl) 0.2 Ur Leukocyte Esterase (NEG) LARGE H Ur Microscopic SEDIMENT EXAMINED Urine RBC (0 - 5 /HPF) 1-3 Urine WBC (0 - 2 /HPF) 25-50 H Ur Epithelial Cells (NONE,FEW) RARE Urine Bacteria (NEG/NONE) MANY H Urine Hemoglobin (NEG) MOD H Urine Glucose (N MG/DL) NEG Assessment/Plan Assessment/Plan Studies I reviewed yesterday's CT scan on PACS myself compared it with the one from 2016 on the current one the gallbladder as a little more distended the large gallstone seems more proximal From yesterday CBCs about the same, leukocytosis UA is positive Impression is first major episode of biliary colic may be developing acute cholecystitis, no signs of cholangitis However it's possible portion of the leukocytosis may be related to a UTI Her pain is subjectively a little better today The cardiac history including a factor V and the Plavix is a risk for surgery and I'd recommend input from cardiology regarding the Plavix. I would continue the antibiotics and hopefully this can be managed nonoperatively and then optimized for outpatient laparoscopic cholecystectomy, this plan may change if she worsens, ie perc choley versus surgery. Problem List: 1. Acute cholecystitis due to biliary calculus 2. Urinary tract infection 3. MCC current use of anticoagulant 4. Coronary artery disease Consult Acknowledgment - Thank you for your consult request.
[2018-07-05 20:39] VITALS: BP 122/72
[2018-07-06 06:52] VITALS: BP 118/60
[2018-07-06 07:46] LABS: ABSOLUTE BASOPHIL COUNT 0 /CUMM (0.0-0.2); ABSOLUTE EOSINOPHIL COUNT 0 /CUMM (0.0-0.7); ABSOLUTE GRANULOCYTE CT 16.8 /CUMM (1.4-6.5); ABSOLUTE LYMPH COUNT 2.2 /CUMM (1.2-3.4); ABSOLUTE MONOCYTE COUNT 2.1 /CUMM (0.10-0.60); BASOPHIL % 0.2 % (0.0-2.0); EOSINOPHIL % 0 % (0-5); GRANULOCYTE % 79.5 % (42.2-75.2); HEMATOCRIT 38.7 % (37-47); MEAN CORPUSCULAR HGB 29.9 PG (27.0-31.0); MEAN CORPUSCULAR HGB CONC 34.2 G/DL (33.0-37.0); MEAN CORPUSCULAR VOLUME 87.4 FL (81.0-99.0); PLATELET COUNT 343 /CUMM (130-400); RED BLOOD CELL CT 4.43 /CUMM (4.20-5.40)
--- NOTE | 2018-07-06 07:50 | PN- General Surgery ---
Subjective Subjective: Pain is a little better this morning, she had a mild low-grade fever. She denies any nausea or vomiting. Objective Vital Signs and I&Os Vital Signs Date Time Temp Pulse Resp B/P B/P Pulse O2 O2 Flow FiO2 Mean Ox Delivery Rate 07/06 0652 100.7 98 20 118/60 94 Room Air 07/05 2039 99.0 88 18 122/72 95 Room Air 07/05 2013 88 122/74 07/05 1430 97.0 66 20 118/60 97 Room Air 07/05 0908 60 124/70 07/05 0908 60 124/70 07/05 0800 Room Air Intake & Output 07/06 0800 07/06 0000 07/05 1600 07/05 0807/05 0000 07/04 1600 Intake Total 0 700 951 996 8118 Output Total Balance 0 700 280 612 1726 Intake, IV 0 461 234 6928 Intake, Oral 0 700 240 80 Number 0 0 Bowel Movements Patient 187 lb 187 lb Weight Weight Reported by Patient Measurement Method Physical Exam: Well-developed well-nourished no apparent distress. HEENT: Atraumatic, extraocular motion intact Neck: Supple, no lymphadenopathy Respiratory: No respiratory distress Abdomen: Moderate tenderness in the right upper quadrant. Minimal distention of abdomen. Extremities: No edema, no calf pain Neuro: Alert and oriented x3 Psych: Mood affect normal, normal memory normal judgment. Skin: Warm and dry, no rash on exposed skin Results Last 48 Hours of Labs: Laboratory Tests 07/06 07/05 07/05 0604 1100 0325 Chemistry Sodium (137 - 145 mmol/L) Pending 137 Potassium (3.5 - 5.1 mmol/L) Pending 3.5 Chloride (98 - 107 mmol/L) Pending 101 Carbon Dioxide (22 - 30 mmol/L) Pending 24 Anion Gap (5 - 16) Pending 12 BUN (7 - 17 mg/dL) Pending 9 Creatinine (0.5 - 1.0 mg/dL) Pending 0.5 Estimated GFR (>60 ml/min) > 60 BUN/Creatinine Ratio (7 - 25 %) Pending 18.0 Total Bilirubin (0.2 - 1.3 mg/dL) 0.6 Direct Bilirubin (< 0.4 mg/dL) 0.1 AST (14 - 36 U/L) 26 ALT (9 - 52 U/L) 31 Alkaline Phosphatase (<127 U/L) 77 Troponin I (< 0.11 ng/ml) 0.02 Total Protein (6.3 - 8.2 g/dL) 6.8 Albumin (3.5 - 5.0 g/dL) 3.9 Amylase (30 - 110 U/L) 39 Lipase (23 - 300 U/L) 67 Hematology CBC w Diff Pending NO MAN DIFF REQ WBC (4.8 - 10.8 /CUMM) Pending 14.8 H RBC (4.20 - 5.40 /CUMM) Pending 4.31 Hgb (12.0 - 16.0 G/DL) Pending 12.9 Hct (37 - 47 %) Pending 37.2 MCV (81.0 - 99.0 FL) Pending 86.3 MCH (27.0 - 31.0 PG) Pending 30.0 MCHC (33.0 - 37.0 G/DL) Pending 34.8 RDW (11.5 - 14.5 %) Pending 14.3 Plt Count (130 - 400 /CUMM) Pending 353 MPV (7.4 - 10.4 FL) Pending 7.6 Gran % (42.2 - 75.2 %) 82.7 H Lymphocytes % (20.5 - 51.1 %) 7.9 L Monocytes % (1.7 - 9.3 %) 9.1 Eosinophils % (0 - 5 %) 0 Basophils % (0.0 - 2.0 %) 0.3 Absolute Granulocytes (1.4 - 6.5 /CUMM) 12.2 H Absolute Lymphocytes (1.2 - 3.4 /CUMM) 1.2 Absolute Monocytes (0.10 - 0.60 /CUMM) 1.3 H Absolute Eosinophils (0.0 - 0.7 /CUMM) 0 Absolute Basophils (0.0 - 0.2 /CUMM) 0 07/04 07/04 1925 1741 Chemistry Sodium (137 - 145 mmol/L) 139 Potassium (3.5 - 5.1 mmol/L) 4.1 Chloride (98 - 107 mmol/L) 102 Carbon Dioxide (22 - 30 mmol/L) 27 Anion Gap (5 - 16) 9 BUN (7 - 17 mg/dL) 18 H Creatinine (0.5 - 1.0 mg/dL) 0.7 Estimated GFR (>60 ml/min) > 60 BUN/Creatinine Ratio (7 - 25 %) 25.7 H Glucose (65 - 99 mg/dL) 109 H Calcium (8.4 - 10.2 mg/dL) 9.9 Total Bilirubin (0.2 - 1.3 mg/dL) 0.7 AST (14 - 36 U/L) 33 ALT (9 - 52 U/L) 33 Alkaline Phosphatase (<127 U/L) 88 Troponin I (< 0.11 ng/ml) < 0.01 C-React Prot High Sens (1.0 - 3.0 mg/L) 10.1 H Total Protein (6.3 - 8.2 g/dL) 7.7 Albumin (3.5 - 5.0 g/dL) 4.5 Globulin (1.9 - 4.2 gm/dL) 3.2 Albumin/Globulin Ratio (1.1 - 2.2 %) 1.4 Amylase (30 - 110 U/L) 55 Lipase (23 - 300 U/L) 48 Hematology CBC w Diff NO MAN DIFF REQ WBC (4.8 - 10.8 /CUMM) 15.1 H RBC (4.20 - 5.40 /CUMM) 4.72 Hgb (12.0 - 16.0 G/DL) 13.8 Hct (37 - 47 %) 40.9 MCV (81.0 - 99.0 FL) 86.6 MCH (27.0 - 31.0 PG) 29.3 MCHC (33.0 - 37.0 G/DL) 33.9 RDW (11.5 - 14.5 %) 14.5 Plt Count (130 - 400 /CUMM) 365 MPV (7.4 - 10.4 FL) 7.6 Gran % (42.2 - 75.2 %) 80.0 H Lymphocytes % (20.5 - 51.1 %) 14.5 L Monocytes % (1.7 - 9.3 %) 5.0 Eosinophils % (0 - 5 %) 0.2 Basophils % (0.0 - 2.0 %) 0.3 Absolute Granulocytes (1.4 - 6.5 /CUMM) 12.0 H Absolute Lymphocytes (1.2 - 3.4 /CUMM) 2.2 Absolute Monocytes (0.10 - 0.60 /CUMM) 0.7 H Absolute Eosinophils (0.0 - 0.7 /CUMM) 0 Absolute Basophils (0.0 - 0.2 /CUMM) 0.1 Urines Urine Color (YEL,AMB,STR) YEL Urine Clarity (CLEAR) HAZY H Urine pH (5.0 - 8.0) 6.0 Ur Specific [place] (1.001 - 1.035) 1.010 Urine Protein (NEG,<30 MG/DL) NEG Urine Ketones (NEG) 15 H Urine Nitrite (NEG) POS H Urine Bilirubin (NEG) NEG Urine Urobilinogen (0.1 - 1.0 EU/dl) 0.2 Ur Leukocyte Esterase (NEG) LARGE H Ur Microscopic SEDIMENT EXAMINED Urine RBC (0 - 5 /HPF) 1-3 Urine WBC (0 - 2 /HPF) 25-50 H Ur Epithelial Cells (NONE,FEW) RARE Urine Bacteria (NEG/NONE) MANY H Urine Hemoglobin (NEG) MOD H Urine Glucose (N MG/DL) NEG Assessment/Plan Assessment/Plan Cholelithiasis with biliary colic questionable early cholangitis Continue antibiotics Trend white count and fever Continue n.p.o. status until clinical improvement Consider percutaneous cholecystostomy tube placement by IR if clinical condition worsens
[2018-07-06 08:35] LABS: WHITE BLOOD CELL COUNT 21.2 /CUMM (4.8-10.8)
--- NOTE | 2018-07-06 10:04 | PN- Housestaff ---
See Addendum Leonides Nunez 07/06/18 1003: Subjective Follow-up For: RUQ Pain/Pyelonephritis Subjective: Pt seen and examined this am. She reports feeling better; though pain in RUQ is still there. Diminished compared to admission. Noted increased leukocytosis ( 14.8->21.2), low grade fever (100.7) noted. Patient is clinically improving, will repeat CBC today to trend. She is breathing comfortably on room air. Update: Patient noted chills and was found to be tachycardic at around 11 am. EKG showed sinus tachycardia, pt does has a history of a-fib in the past. Repeat CBC showed WBC at 19.2. Will obtain CTA, lactate, troponin. See event note for more information Review of Systems Constitutional: Reports: see HPI. Objective Last 24 Hrs of Vital Signs/I&O Vital Signs Date Time Temp Pulse Resp B/P B/P Pulse O2 O2 Flow FiO2 Mean Ox Delivery Rate 07/06 0908 100 114/72 07/06 0907 100 114/72 07/06 0652 100.7 98 20 118/60 94 Room Air 07/05 2039 99.0 88 18 122/72 95 Room Air 07/05 2013 88 122/74 07/05 1430 97.0 66 20 118/60 97 Room Air Intake & Output 07/06 1600 07/06 0800 07/06 0000 Intake Total 0 700 Output Total Balance 0 700 Intake, IV 0 Intake, Oral 0 700 Number 0 Bowel Movements Physical Exam General Appearance: Alert, Oriented X3, Cooperative, No Acute Distress HEENT: Atraumatic, EOMI Neck: Supple Cardiovascular: Regular Rate, Normal S1, Normal S2 Lungs: Clear to Auscultation, Normal Air Movement Abdomen: Normal Bowel Sounds, Soft, Tender to deep palpation on RUQ. Neurological: Normal Speech Extremities: No Edema Current Medications: Current Medications Sig/Kalyani Start time Last Medication Dose Route Stop Time Status Admin Acetaminophen 650 MG Q6P PRN 07/04 2330 AC 07/05 PO 0914 Aspirin Buffered 81 MG DAILY 07/05 09 AC 07/06 PO 0907 Calcium Carbonate 500 MG Q4 HRS NEEDED PRN 07/05 1445 AC 07/05 PO 1435 Calcium Carbonate 0 .STK-MED ONE 07/05 1433 DC PO Ceftriaxone Sodium 1,000 MG DAILY 07/05 2100 DC IV Ceftriaxone Sodium 1,000 MG 07/05 AC 07/05 IV 2012 Cholecalciferol 4,000 IU DAILY 07/05 900 AC 07/06 PO 906 Clopidogrel Bisulfate 75 MG DAILY 07/05 900 AC 07/06 PO 907 Cyclobenzaprine HCl 5 MG QPM PRN 07/05 0215 AC PO Dextrose/Sodium 1,000 ML Q10H 07/06 1015 AC Chloride IV Dextrose/Sodium 1,000 ML Q10H 07/05 0230 DC 07/05 Chloride IV 0240 Enoxaparin Sodium 40 MG DAILY 07/05 900 AC 07/06 SC 0908 Hydromorphone HCl 0.4 MG ONCE ONE 07/05 1530 DC 07/05 IV 07/05 1531 1555 Hydromorphone HCl 0.4 MG Q4P PRN 07/05 1530 AC 07/06 IV 0909 Lisinopril 2.5 MG DAILY 07/05 900 AC 07/06 PO 907 Metoclopramide HCl 10 MG Q6P PRN 07/05 0400 AC 07/06 IV 09 Metoprolol Tartrate 12.5 MG BID 07/05 0300 AC 07/06 PO 906 Montelukast Sodium 10 MG 07/05 AC 07/05 PO 2012 Morphine Sulfate 2 MG Q6P PRN 07/04 2330 AC IV Oxycodone/ 1 TAB Q6P PRN 07/04 2330 AC Acetaminophen PO Last 24 Hrs of Lab/Vin Results Last 24 Hrs of Labs/Mics: Laboratory Tests 07/06/18 0604: Anion Gap 15, Estimated GFR > 60, BUN/Creatinine Ratio 13.3, CBC w Diff NO MAN DIFF REQ, RBC 4.43, MCV 87.4, MCH 29.9, MCHC 34.2, RDW 14.0, MPV 8.0, Gran % 79.5 H, Lymphocytes % 10.6 L, Monocytes % 9.7 H, Eosinophils % 0, Basophils % 0.2, Absolute Granulocytes 16.8 H, Absolute Lymphocytes 2.2, Absolute Monocytes 2.1 H, Absolute Eosinophils 0, Absolute Basophils 0 07/05/18 1100: Anion Gap 12, Estimated GFR > 60, BUN/Creatinine Ratio 18.0, Total Bilirubin 0.6 , Direct Bilirubin 0.1, AST 26, ALT 31, Alkaline Phosphatase 77, Total Protein 6.8, Albumin 3.9, Amylase 39, Lipase 67, CBC w Diff NO MAN DIFF REQ, RBC 4.31, MCV 86.3, MCH 30.0, MCHC 34.8, RDW 14.3, MPV 7.6, Gran % 82.7 H, Lymphocytes % 7.9 L, Monocytes % 9.1, Eosinophils % 0, Basophils % 0.3, Absolute Granulocytes 12.2 H, Absolute Lymphocytes 1.2, Absolute Monocytes 1.3 H, Absolute Eosinophils 0, Absolute Basophils 0 Assessment/Plan Assessment: 57 y/o F with a PMH of factor V deficiency, multiple NC s/p stent, CABG, latest in february on dual antiplt therapy and sciatica who comes in c/o worsening RUQ pain. Pt states the pain started 4 days ago, was prescribed flexeril by her PCP. At this point patient also c/o dysuria. Pain is constant, 10/10 at worst that started after eating a richter and egg sandwich, that progressively got worse; nonradiating in nature, that did not alleviate with tylenol. There is no relation to PO intake. She did vomit once before coming to the ED, 3x while in the ED a nonbloody vomitus. She was admitted to [facility] for further management of: #PROBLEM LIST #RUQ/R Flank Pain, 2/2 Upper Urinary Tract Infection #Billiary collic w/large gallstone on imaging, no acute cholecystisis #CAD s/p PCI and CABG #Factor V Leyden Deficiency #RUQ/R Flank Pain, 2/2 Upper Urinary Tract Infection Patient on ceftriaxone, day #3, noted Ucx with E. coli that is pansensitive; on a regular diet. Noted increased leukocytosis, will reorder CBC to reassess. Her pain is improved compared to admission. -On ceftriaxone day #3 -Noted 100.3 fever with increased leukocytosis. Will reassess with a stat CBC. #Billiary collic w/large gallstone on imaging, no acute cholecystisis Evaluated by surgery. They recommend cholecystostomy tube placement by IR should symptoms worsen; patient however is not agreeable with this plan. She feels better today with decreased pain in the RUQ, though still feels it. -Surgery following, consider cholecystostomy tube should symptoms worsen. #CAD s/p PCI and CABG // Factor V Leyden Deficiency Continue her cardiac antiplatelet regimen. FULL CODE DVT PPX: ALPS, ambulating Problem List: 1. Urinary tract infection 2. Upper abdominal pain, unspecified Pain Ratin Pain Location: RUQ Pain Goal: Pain 4 or less Pain Plan: As per pathway Tomorrow's Labs & Rationales: leia Harrison MDNew 07/06/18 1305: Attending MD Review Statement Attending Statement Attending MD Statement: examined this patient, discuss w/resident/PA/TECHNICAL SERVICES COORDINATOR, agreed w/resident/PA/TECHNICAL SERVICES COORDINATOR, reviewed EMR data (avail), discussed with nursing, amended to note Attending Assessment/Plan: The patient was seen later in the morning after initial regulatory internship evaluation. She was noted to have low grade fever 100.7 and a significantly increased WBC this morning (21.2). Subsequently nursing noted tachycardia and EKG was being done. Initial EKG had significant baseline artifact (computer read was afib), however subsequent better quality EKG suggested sinus tachycardia. Non-specific ST changes. The patient denied chest pain and her RUQ abdominal pain had resolved. Pulse ox was in high 80's. The patient was also having tremor/chills. Repeat WBC 19K. Concerns would be possible early sepsis (she grew E coli from urine which is wesley -sensitive and has been on IV Ceftriaxone), pulmonary embolism (has been on prophylactic Lovenox), or cardiac event (no chest pain). Plan: 1. Transfer to ICU for closer monitoring- ICU team and Dr. Mclean aware. 2. Check serial troponins, lactate, BC, LFT's etc. 3. CTPA to evaluate for PE and CT abd/pel. 4. [facility] consult- Dr. Mclean. 5. Cardiology consult- Dr. Ferrari (her primary supervisor records change is Dr. Odom in [place]). 6. ID evaluation regarding broadening antibiotic coverage. Resident to notify son/daughter regarding transfer to ICU.
[2018-07-06 12:04] LABS: ABSOLUTE BASOPHIL COUNT 0 /CUMM (0.0-0.2); ABSOLUTE EOSINOPHIL COUNT 0 /CUMM (0.0-0.7); ABSOLUTE GRANULOCYTE CT 15.5 /CUMM (1.4-6.5); ABSOLUTE MONOCYTE COUNT 1.8 /CUMM (0.10-0.60); BASOPHIL % 0 % (0.0-2.0); EOSINOPHIL % 0 % (0-5); GRANULOCYTE % 80.4 % (42.2-75.2); HEMATOCRIT 35.4 % (37-47); MEAN CORPUSCULAR HGB 29.9 PG (27.0-31.0); MEAN CORPUSCULAR HGB CONC 34.4 G/DL (33.0-37.0); MEAN CORPUSCULAR VOLUME 86.7 FL (81.0-99.0); MEAN PLATELET VOLUME 7.9 FL (7.4-10.4); PLATELET COUNT 311 /CUMM (130-400); RBC DISTRIBUTION WIDTH 13.9 % (11.5-14.5); RED BLOOD CELL CT 4.08 /CUMM (4.20-5.40); WHITE BLOOD CELL COUNT 19.3 /CUMM (4.8-10.8)
--- NOTE | 2018-07-06 12:34 | Cons- CRCU ---
Eyad Barrientos 07/06/18 1234: General Information and HPI Consulting Request Date of Consult: 07/06/18 Requested By: MD Hunter Reason for Consult: Tachycardia 2/2 sepsis of unknown origin Source of Information: patient, old records Exam Limitations: no limitations History of Present Illness: 57 yo F with PMH of ND s/p PCI and CABG (last in January 2018), hyperlipidemia and Factor V Leiden mutation presented to the ED for evaluation of abdominal pain that started on 07/04/2018. The patient states around 4 days prior to presentation she developed dysuria which resolved on its own after a day or so. This morning after having breakfast she developed sudden severe right upper quadrant abdominal pain, radiating to her back and groin, 10/10 in severity, accompanied with nausea and nonbloody vomiting. She took some tylenol which did not provide any relief. She states having burning sensation with urination again day of presentation. She came in to the ED for further evaluation. She had a CAT scan in the ED which revealed cholelithiasis without cholecystitis. Surgery was consulted who determined the patient was non op. She was placed in observation in general medicine for upper tract UTI and cholelithiasis. Her urine cultures grew E. coli, pansensitive. She was started on ceftriaxone, and she is currently on day 3. This morning, she had increasing leukocytosis, low-grade fever, sinus tachycardia on EKG. Her CbC was repeated, with leukocytosis at 19. She went for a CT angiogram. We were consulted as patient's clinical picture looked concerning, with PE on differential. On my examination: Patient states that this morning she felt like she had a fever, which she was not too worried about as "I will just sweat it out". However, she says that she became concerned when she started having chills. She states that she still has abdominal pain which is subsided somewhat, located mostly in the right upper quadrant. She denies any night sweats, chest pain, respiratory symptoms, diarrhea(although states that she did have one episode of diarrhea when she was admitted), joint pains, rashes, vomiting. She says that she feels like her bladder is still full. She states that subjectively she feels better today than the past 2 days that she was here. She also states that after her CABG this year in January, in cardiac rehab she was told that she had occasional ectopic beats. She states that she follows Dr. Odom who is her outpatient reviewer sales. Allergies/Medications Allergies: Coded Allergies: Influenza Virus Vaccines (RASH, HIVES 06/22/16) pantoprazole (From PROTONIX) (Intermediate, Facial redness 07/06/18) Home Med List: Aspirin (Ecotrin*) 81 MG TABLET.DR 1 TAB PO DAILY HEART/BLOOD (Reported) Cholecalciferol (Vitamin D3) (Vitamin D) 2,000 UNIT CAPSULE 2 CAP PO DAILY SUPPLEMENT (Reported) Clopidogrel Bisulfate (Clopidogrel) 75 MG TABLET 1 TAB PO DAILY BLOOD THINNER (Reported) Cyclobenzaprine HCl 5 MG TABLET 1 TAB PO QPM PRN Muscle Spasms (Reported) Evolocumab (Repatha Sureclick) 140 MG/ML PEN.INJCTR 140 MG SC Q2W CHOLESTEROL (Reported) Fish Oil/Borage/Flax/Om3,6,9#1 (Triple [place] Complex 3-6-9) (Unknown Strength) CAPSULE 2 CAP PO BID SUPPLEMENT (Reported) Lisinopril 2.5 MG TABLET 1 TAB PO DAILY HEART (Reported) Metoprolol Tartrate 25 MG TABLET 0.5 TAB PO BID HEART (Reported) Montelukast Sodium 10 MG TABLET 1 TAB PO DAILY ALLERGIES (Reported) Multivit-Min/FA/Lycopen/Lutein (Centrum Silver Tablet) 0.4 MG-300 MCG-250 MCG TABLET 1 TAB PO DAILY SUPPLEMENT (Reported) Saccharomyces Boulardii (Probiotic) (Unknown Strength) CAPSULE (Unknown Dose) PO DAILY SUPPLEMENT (Reported) Vitamin B Complex 1 EACH CAPSULE 1 CAP PO DAILY SUPPLEMENT (Reported) Current Medications: Current Medications Sig/Kalyani Start time Last Medication Dose Route Stop Time Status Admin Acetaminophen 650 MG Q6P PRN 07/04 2330 AC 07/06 PO 1212 Aspirin Buffered 81 MG DAILY 07/05 09 AC 07/06 PO 09 Calcium Carbonate 500 MG Q4 HRS NEEDED PRN 07/05 1445 DC 07/05 PO 1435 Calcium Carbonate 0 .STK-MED ONE 07/05 1433 DC PO Ceftriaxone Sodium 1,000 MG DAILY 07/05 2100 DC IV Ceftriaxone Sodium 1,000 MG 2100 07/05 2100 AC 07/05 IV 2013 Cholecalciferol 4,000 IU DAILY 07/05 09 AC 07/06 PO 09 Clopidogrel Bisulfate 75 MG DAILY 07/05 0900 AC 07/06 PO 0908 Cyclobenzaprine HCl 5 MG QPM PRN 07/05 0215 AC PO Dextrose/Sodium 1,000 ML Q10H 07/06 1200 DC Chloride IV Dextrose/Sodium 1,000 ML Q10H 07/06 1015 DC Chloride IV Enoxaparin Sodium 40 MG DAILY 07/05 0900 AC 07/06 SC 0908 Hydromorphone HCl 0.4 MG ONCE ONE 07/05 1530 DC 07/05 IV 07/05 1531 1555 Hydromorphone HCl 0.4 MG Q4P PRN 07/05 1530 DC 07/06 IV 0909 Lisinopril 2.5 MG DAILY 07/05 0900 AC 07/06 PO 0908 Metoclopramide HCl 10 MG Q6P PRN 07/05 0400 AC 07/06 IV 0906 Metoprolol Tartrate 12.5 MG BID 07/05 0300 AC 07/06 PO 0907 Metronidazole 500 MG IQ8 07/06 1600 AC N/A 1 UNIT IV Montelukast Sodium 10 MG 2100 07/05 2100 DC 07/05 PO 2013 Morphine Sulfate 2 MG Q6P PRN 07/04 2330 AC IV Oxycodone/ 2 TAB Q6P PRN 07/06 1130 AC Acetaminophen PO Oxycodone/ 1 TAB Q6P PRN 07/04 2330 AC Acetaminophen PO Pantoprazole Sodium 40 MG BID 07/06 1244 UNVr IV Sodium Chloride 1,000 ML Q8H 07/06 1200 AC 07/06 IV 1209 Review of Systems Review of Systems Constitutional: Reports: see HPI. Cardiovascular: Denies: chest pain, palpitations. Respiratory: Denies: cough, hemoptysis, short of breath. GI: Reports: abdominal pain, diarrhea (one episode on admission). Denies: nausea, vomiting. Musculoskeletal: Denies: joint pain. 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 Home Who Do You Live With? self Services at Home: None Primary Language: Italian Smoking Status: Former Smoker ETOH Use: denies use Illicit Drug Use: denies illicit drug use Functional Ability ADLs Independent: dressing, eating, toileting, bathing. Ambulation: independent IADLs Independent: shopping, housework, finances, food prep, telephone, transportation , medication admin. Exam & Diagnostic Data Last 24 Hrs of Vital Signs/I&O Vital Signs Date Time Temp Pulse Resp B/P B/P Pulse O2 O2 Flow FiO2 Mean Ox Delivery Rate 07/06 1212 99.1 07/06 0908 100 114/72 07/06 0907 100 114/72 07/06 0800 100 Room Air 07/06 0652 100.7 98 20 118/60 94 Room Air 07/05 2039 99.0 88 18 122/72 95 Room Air 07/05 2013 88 122/74 07/05 1430 97.0 66 20 118/60 97 Room Air Intake & Output 07/06 1600 07/06 0800 07/06 0000 Intake Total 0 700 Output Total Balance 0 700 Intake, IV 0 Intake, Oral 0 700 Number 0 Bowel Movements Physical Exam General Appearance: well developed/nourished, no apparent distress, alert, awake Head: atraumatic Neck: normal inspection Respiratory: normal breath sounds, lungs clear Cardiovascular: tachycardia Peripheral Pulses: 2+ radial (R), 2+ radial (L), 2+ dorsalis pedis (R), 2+ dorsalis pedis (L) Gastrointestinal: soft, tenderness (+murphys, RUQ tenderness), small bruing from lovenox shots Back: normal inspection Extremities: normal inspection, no edema Skin: intact, normal color, clammy Last 48 Hrs of Labs/Vin: Laboratory Tests 07/06/18 1115: CBC w Diff NO MAN DIFF REQ, RBC 4.08 L, MCV 86.7, MCH 29.9, MCHC 34.4, RDW 13.9 , MPV 7.9, Gran % 80.4 H, Lymphocytes % 10.2 L, Monocytes % 9.4 H, Eosinophils % 0, Basophils % 0, Absolute Granulocytes 15.5 H, Absolute Lymphocytes 2.0, Absolute Monocytes 1.8 H, Absolute Eosinophils 0, Absolute Basophils 0 07/06/18 1015: CBC w Diff Cancelled, WBC Cancelled, RBC Cancelled, Hgb Cancelled, Hct Cancelled , MCV Cancelled, MCH Cancelled, MCHC Cancelled, RDW Cancelled, Plt Count Cancelled, MPV Cancelled 07/06/18 0604: Anion Gap 15, Estimated GFR > 60, BUN/Creatinine Ratio 13.3, CBC w Diff NO MAN DIFF REQ, RBC 4.43, MCV 87.4, MCH 29.9, MCHC 34.2, RDW 14.0, MPV 8.0, Gran % 79.5 H, Lymphocytes % 10.6 L, Monocytes % 9.7 H, Eosinophils % 0, Basophils % 0.2, Absolute Granulocytes 16.8 H, Absolute Lymphocytes 2.2, Absolute Monocytes 2.1 H, Absolute Eosinophils 0, Absolute Basophils 0 07/05/18 1100: Anion Gap 12, Estimated GFR > 60, BUN/Creatinine Ratio 18.0, Total Bilirubin 0.6 , Direct Bilirubin 0.1, AST 26, ALT 31, Alkaline Phosphatase 77, Total Protein 6.8, Albumin 3.9, Amylase 39, Lipase 67, CBC w Diff NO MAN DIFF REQ, RBC 4.31, MCV 86.3, MCH 30.0, MCHC 34.8, RDW 14.3, MPV 7.6, Gran % 82.7 H, Lymphocytes % 7.9 L, Monocytes % 9.1, Eosinophils % 0, Basophils % 0.3, Absolute Granulocytes 12.2 H, Absolute Lymphocytes 1.2, Absolute Monocytes 1.3 H, Absolute Eosinophils 0, Absolute Basophils 0 07/05/18 0325: Troponin I 0.02 07/04/18 1925: Urine Color YEL, Urine Clarity HAZY H, Urine pH 6.0, Ur Specific [place] 1.010, Urine Protein NEG, Urine Ketones 15 H, Urine Nitrite POS H, Urine Bilirubin NEG, Urine Urobilinogen 0.2, Ur Leukocyte Esterase LARGE H, Ur Microscopic SEDIMENT EXAMINED, Urine RBC 1-3, Urine WBC 25-50 H, Ur Epithelial Cells RARE, Urine Bacteria MANY H, Urine Hemoglobin MOD H, Urine Glucose NEG 07/04/18 1741: Anion Gap 9, Estimated GFR > 60, BUN/Creatinine Ratio 25.7 H, Glucose 109 H, Calcium 9.9, Total Bilirubin 0.7, AST 33, ALT 33, Alkaline Phosphatase 88, Troponin I < 0.01, C-React Prot High Sens 10.1 H, Total Protein 7.7, Albumin 4.5, Globulin 3.2, Albumin/Globulin Ratio 1.4, Amylase 55, Lipase 48, CBC w Diff NO MAN DIFF REQ, RBC 4.72, MCV 86.6, MCH 29.3, MCHC 33.9, RDW 14.5, MPV 7.6, Gran % 80.0 H, Lymphocytes % 14.5 L, Monocytes % 5.0, Eosinophils % 0.2, Basophils % 0.3, Absolute Granulocytes 12.0 H, Absolute Lymphocytes 2.2, Absolute Monocytes 0.7 H, Absolute Eosinophils 0, Absolute Basophils 0.1 Assessment/Plan CRCU Impression/Plan: Ms. Grewal is a 57-year-old female with a past medical history of ND s/p PCI and CABG (last in January 2018), hyperlipidemia and Factor V Leiden mutation presented to the ED for evaluation of abdominal pain that started on 07/04/2018. She was found to have urinary tract infection, E. coli, pansensitive, and has been on ceftriaxone for it. She was also found to have cholelithiasis without evidence of cholecystitis on CAT scan from ED. On the morning of July 06, she had low-grade fever 100.7 as well as leukocytosis, which was confirmed on repeat CBC, looked poor on clinical exam. ICU was consulted by general medicine team for further management. She is in the ICU due to: Tachycardia 2/2 sepsis of unknown origin, poor clinical picture Her current problems are: Leukocytosis, Sepsis of Unknown Origin #Respiratory -Desaturated earlier today to 88%. Currently on 1L NC with sats at 95% -Pending CTA -On lovenox for DVT ppx #Infectious disease -Leukocytosis 21->19 on repeat CBC. Had low grade fever earlier this morning, complaining of chills. -Abx broadened, flagyl started. On Ceftriaxone, day 3. -Trending lactate -On NS, 125cc/hour -UA on admission had leuk esterase, bacteria -Previously grew E.coli pansensitive back in February 2018 -Pending CT Abdomen/Pelvis #Cardiovascular/circulation -Tachy to 150s earlier. Has had afib in the past. -Significant cardiac history for ND in 2011, CABG and 3x stents in January of 2018 -Cardiology recs appreciated, will obtain EKG on arrival to unit and copies of cardiac records #Hematologic - stable -H/H 12.2/35.4 previously 13.2/38.7 at 0600 this morning #Metabolic -Lactate, LFTs pending -This AMs chemistry unremarkable #Alimentary - stable #Neurological - intact, stable #Nephro - stable -BUN/Cr unremarkable DVT prophylaxis IV access Full code Consult Acknowledgment - Thank you for your consult request. Vinay LUNA,Robbie Maynard 07/06/18 1728: Assessment/Plan CRCU Other Findings/Comments: I have personally seen and examined the patient and agree with the resident's assessment and plan as detailed above. I reviewed the plan with the house staff. I also discussed the case with nursing, Dr. Harrison, Dr. Ferrari and Dr. Troncoso. We will follow up cardiology and surgery's recommendations - appreciate input. I updated the patient and family at the bedside. She will continue to be monitored in the critical care unit. I recommended that I be contacted should there be any questions or issues. Consult Acknowledgment - Thank you for your consult request.
--- NOTE | 2018-07-06 12:59 | Event Note ---
Event Note Event Note: S: 57 y/o F full code patient started complaining of suddent onset chills, SOB and desaturation to 88%. She was found to be in sinus tachycardia on EKG. Repeat CBC showed leukocytosis (21.2-19.3). She is febrile (Tmax 100.7). B: 57 yo F with PMH of [place] s/p multiple PCIs and CABG (last in January 2018), hyperlipidemia and Factor V Leiden deficiency presented to the ED for evaluation of abdominal pain that started morning of admission alongside dysuria. On the morning of admission, patient developed sudden severe right upper quadrant abdominal pain, radiating to her back and groin, 10/10 in severity, accompanied with nausea and nonbloody vomiting. CT showed a large gallstone but no signs of acute cholecystitis. Surgery has been following, they did not recommend cholecystectomy at this time but did recommend a cholecystostomy tube should symptom worsen. UA showed: positive leukocyte esterase, nitrites with leukocyturia. She was on the general medicine floor receiving IV ceftriaxone, being treated for a probable pyelonephritis. While on the general medicine floor , she was tolerating PO well on a regular diet. AR 57 y/o F with increasing leukocytosis while on antibiotics with sudden desaturation to 88%, sinus tachycardia and chills. With her extensive cardiac history and hypercoagulable state could be PE; could be developing sepsis of urological origin vs billiary tree. Will obtain: -Started NS @ 125 cc/hr -CTA, troponins, cardiology consult -Blood, urinary and sputum cultures; lactic acid, CT Abd/pelvis -O2 supplementation by NC to mantain O2 sat>92% -Transfer to ICU for higher level of care.
--- NOTE | 2018-07-06 12:59 | PN- General Surgery ---
See Addendum Subjective Subjective: Patient denies abdominal pain. She is eating without pain. there were low grade fevers overnight. Objective Vital Signs and I&Os Vital Signs Date Time Temp Pulse Resp B/P B/P Pulse O2 O2 Flow FiO2 Mean Ox Delivery Rate 07/06 1212 99.1 07/06 0908 100 114/72 07/06 0907 100 114/72 07/06 0800 100 Room Air 07/06 0652 100.7 98 20 118/60 94 Room Air 07/05 2039 99.0 88 18 122/72 95 Room Air 07/05 2013 88 122/74 07/05 1430 97.0 66 20 118/60 97 Room Air Intake & Output 07/06 1600 07/06 0800 07/06 0000 07/05 1600 07/05 0000 Intake Total 0 700 742 265 5992 Output Total Balance 0 700 547 111 8482 Intake, IV 0 642 686 9405 Intake, Oral 0 700 240 80 Number 0 0 Bowel Movements Patient 187 lb 187 lb Weight Weight Reported by Patient Measurement Method Physical Exam: gen; dyspneic. no distress. eating salmon with edson salad. Current Medications: Current Medications Sig/Kalyani Start time Last Medication Dose Route Stop Time Status Admin Acetaminophen 650 MG Q6P PRN 07/04 2330 AC 07/06 PO 1212 Aspirin Buffered 81 MG DAILY 07/05 900 AC 07/06 PO 906 Calcium Carbonate 500 MG Q4 HRS NEEDED PRN 07/05 1445 DC 07/05 PO 1435 Calcium Carbonate 0 .STK-MED ONE 07/05 1433 DC PO Ceftriaxone Sodium 1,000 MG DAILY 07/05 2100 DC IV Ceftriaxone Sodium 1,000 MG 07/05 2100 AC 07/05 IV 2013 Cholecalciferol 4,000 IU DAILY 07/05 900 AC 07/06 PO 09 Clopidogrel Bisulfate 75 MG DAILY 07/05 900 AC 07/06 PO 09 Cyclobenzaprine HCl 5 MG QPM PRN 07/05 0215 AC PO Dextrose/Sodium 1,000 ML Q10H 07/06 1200 DC Chloride IV Dextrose/Sodium 1,000 ML Q10H 07/06 1015 DC Chloride IV Enoxaparin Sodium 40 MG DAILY 07/05 09 AC 07/06 SC 0908 Hydromorphone HCl 0.4 MG ONCE ONE 07/05 1530 DC 07/05 IV 07/05 1531 1555 Hydromorphone HCl 0.4 MG Q4P PRN 07/05 1530 DC 07/06 IV 0909 Lisinopril 2.5 MG DAILY 07/05 0900 AC 07/06 PO 0908 Metoclopramide HCl 10 MG Q6P PRN 07/05 0400 AC 07/06 IV 0906 Metoprolol Tartrate 12.5 MG BID 07/05 0300 AC 07/06 PO 0907 Metronidazole 500 MG IQ8 07/06 1600 AC N/A 1 UNIT IV Montelukast Sodium 10 MG 2100 07/05 2100 DC 07/05 PO 2013 Morphine Sulfate 2 MG Q6P PRN 07/04 2330 AC IV Oxycodone/ 2 TAB Q6P PRN 07/06 1130 AC Acetaminophen PO Oxycodone/ 1 TAB Q6P PRN 07/04 2330 AC Acetaminophen PO Pantoprazole Sodium 40 MG BID 07/06 1244 UNVr IV Sodium Chloride 1,000 ML Q8H 07/06 1200 AC 07/06 IV 1209 Results Last 48 Hours of Labs: Laboratory Tests 07/06 07/06 1115 1015 Hematology CBC w Diff NO MAN DIFF REQ Cancelled WBC (4.8 - 10.8 /CUMM) 19.3 H Cancelled RBC (4.20 - 5.40 /CUMM) 4.08 L Cancelled Hgb (12.0 - 16.0 G/DL) 12.2 Cancelled Hct (37 - 47 %) 35.4 L Cancelled MCV (81.0 - 99.0 FL) 86.7 Cancelled MCH (27.0 - 31.0 PG) 29.9 Cancelled MCHC (33.0 - 37.0 G/DL) 34.4 Cancelled RDW (11.5 - 14.5 %) 13.9 Cancelled Plt Count (130 - 400 /CUMM) 311 Cancelled MPV (7.4 - 10.4 FL) 7.9 Cancelled Gran % (42.2 - 75.2 %) 80.4 H Lymphocytes % (20.5 - 51.1 %) 10.2 L Monocytes % (1.7 - 9.3 %) 9.4 H Eosinophils % (0 - 5 %) 0 Basophils % (0.0 - 2.0 %) 0 Absolute Granulocytes (1.4 - 6.5 /CUMM) 15.5 H Absolute Lymphocytes (1.2 - 3.4 /CUMM) 2.0 Absolute Monocytes (0.10 - 0.60 /CUMM) 1.8 H Absolute Eosinophils (0.0 - 0.7 /CUMM) 0 Absolute Basophils (0.0 - 0.2 /CUMM) 0 /03 09/ 0604 1100 Chemistry Sodium (137 - 145 mmol/L) 137 137 Potassium (3.5 - 5.1 mmol/L) 3.9 3.5 Chloride (98 - 107 mmol/L) 99 101 Carbon Dioxide (22 - 30 mmol/L) 24 24 Anion Gap (5 - 16) 15 12 BUN (7 - 17 mg/dL) 8 9 Creatinine (0.5 - 1.0 mg/dL) 0.6 0.5 Estimated GFR (>60 ml/min) > 60 > 60 BUN/Creatinine Ratio (7 - 25 %) 13.3 18.0 Total Bilirubin (0.2 - 1.3 mg/dL) 0.6 Direct Bilirubin (< 0.4 mg/dL) 0.1 AST (14 - 36 U/L) 26 ALT (9 - 52 U/L) 31 Alkaline Phosphatase (<127 U/L) 77 Total Protein (6.3 - 8.2 g/dL) 6.8 Albumin (3.5 - 5.0 g/dL) 3.9 Amylase (30 - 110 U/L) 39 Lipase (23 - 300 U/L) 67 Hematology CBC w Diff NO MAN DIFF REQ NO MAN DIFF REQ WBC (4.8 - 10.8 /CUMM) 21.2 H 14.8 H RBC (4.20 - 5.40 /CUMM) 4.43 4.31 Hgb (12.0 - 16.0 G/DL) 13.2 12.9 Hct (37 - 47 %) 38.7 37.2 MCV (81.0 - 99.0 FL) 87.4 86.3 MCH (27.0 - 31.0 PG) 29.9 30.0 MCHC (33.0 - 37.0 G/DL) 34.2 34.8 RDW (11.5 - 14.5 %) 14.0 14.3 Plt Count (130 - 400 /CUMM) 343 353 MPV (7.4 - 10.4 FL) 8.0 7.6 Gran % (42.2 - 75.2 %) 79.5 H 82.7 H Lymphocytes % (20.5 - 51.1 %) 10.6 L 7.9 L Monocytes % (1.7 - 9.3 %) 9.7 H 9.1 Eosinophils % (0 - 5 %) 0 0 Basophils % (0.0 - 2.0 %) 0.2 0.3 Absolute Granulocytes (1.4 - 6.5 /CUMM) 16.8 H 12.2 H Absolute Lymphocytes (1.2 - 3.4 /CUMM) 2.2 1.2 Absolute Monocytes (0.10 - 0.60 /CUMM) 2.1 H 1.3 H Absolute Eosinophils (0.0 - 0.7 /CUMM) 0 0 Absolute Basophils (0.0 - 0.2 /CUMM) 0 0 07/05 07/04 0325 1925 Chemistry Troponin I (< 0.11 ng/ml) 0.02 Urines Urine Color (YEL,AMB,STR) YEL Urine Clarity (CLEAR) HAZY H Urine pH (5.0 - 8.0) 6.0 Ur Specific [place] (1.001 - 1.035) 1.010 Urine Protein (NEG,<30 MG/DL) NEG Urine Ketones (NEG) 15 H Urine Nitrite (NEG) POS H Urine Bilirubin (NEG) NEG Urine Urobilinogen (0.1 - 1.0 EU/dl) 0.2 Ur Leukocyte Esterase (NEG) LARGE H Ur Microscopic SEDIMENT EXAMINED Urine RBC (0 - 5 /HPF) 1-3 Urine WBC (0 - 2 /HPF) 25-50 H Ur Epithelial Cells (NONE,FEW) RARE Urine Bacteria (NEG/NONE) MANY H Urine Hemoglobin (NEG) MOD H Urine Glucose (N MG/DL) NEG 07/04 1741 Chemistry Sodium (137 - 145 mmol/L) 139 Potassium (3.5 - 5.1 mmol/L) 4.1 Chloride (98 - 107 mmol/L) 102 Carbon Dioxide (22 - 30 mmol/L) 27 Anion Gap (5 - 16) 9 BUN (7 - 17 mg/dL) 18 H Creatinine (0.5 - 1.0 mg/dL) 0.7 Estimated GFR (>60 ml/min) > 60 BUN/Creatinine Ratio (7 - 25 %) 25.7 H Glucose (65 - 99 mg/dL) 109 H Calcium (8.4 - 10.2 mg/dL) 9.9 Total Bilirubin (0.2 - 1.3 mg/dL) 0.7 AST (14 - 36 U/L) 33 ALT (9 - 52 U/L) 33 Alkaline Phosphatase (<127 U/L) 88 Troponin I (< 0.11 ng/ml) < 0.01 C-React Prot High Sens (1.0 - 3.0 mg/L) 10.1 H Total Protein (6.3 - 8.2 g/dL) 7.7 Albumin (3.5 - 5.0 g/dL) 4.5 Globulin (1.9 - 4.2 gm/dL) 3.2 Albumin/Globulin Ratio (1.1 - 2.2 %) 1.4 Amylase (30 - 110 U/L) 55 Lipase (23 - 300 U/L) 48 Hematology CBC w Diff NO MAN DIFF REQ WBC (4.8 - 10.8 /CUMM) 15.1 H RBC (4.20 - 5.40 /CUMM) 4.72 Hgb (12.0 - 16.0 G/DL) 13.8 Hct (37 - 47 %) 40.9 MCV (81.0 - 99.0 FL) 86.6 MCH (27.0 - 31.0 PG) 29.3 MCHC (33.0 - 37.0 G/DL) 33.9 RDW (11.5 - 14.5 %) 14.5 Plt Count (130 - 400 /CUMM) 365 MPV (7.4 - 10.4 FL) 7.6 Gran % (42.2 - 75.2 %) 80.0 H Lymphocytes % (20.5 - 51.1 %) 14.5 L Monocytes % (1.7 - 9.3 %) 5.0 Eosinophils % (0 - 5 %) 0.2 Basophils % (0.0 - 2.0 %) 0.3 Absolute Granulocytes (1.4 - 6.5 /CUMM) 12.0 H Absolute Lymphocytes (1.2 - 3.4 /CUMM) 2.2 Absolute Monocytes (0.10 - 0.60 /CUMM) 0.7 H Absolute Eosinophils (0.0 - 0.7 /CUMM) 0 Absolute Basophils (0.0 - 0.2 /CUMM) 0.1 Assessment/Plan Assessment/Plan It appears that this patient has two processes. First is urologic infection. The second is biliary pain. The latter appears to be resoved, first episode of biliary colic. Since her pain and tenderness is resolved, no intervention regarding gallbladder is recommended. My impression is that the fevers and leukocytosis are related to sepsis of urologic origin. Continue rx for the latter. Will follow.
--- NOTE | 2018-07-06 13:40 | Cons- Cardiology ---
General Information and HPI Consulting Request Date of Consult: 07/06/18 Requested By: New Harrison MD Reason for Consult: Assistance with management of cardiac issues. Source of Information: patient, old records Exam Limitations: no limitations History of Present Illness: Patient is a 57-year-old female. Her regular clinic scheduler is Dr. Odom. Her past medical history is remarkable for hyper lipidemia, coronary artery disease, prior myocardial infarction, and factor V Leyden mutation. The patient notes that her last procedure was a stent by Dr. Carl with subsequent bypass surgery performed in January 2018. Those records are not available to me today. Patient was admitted to the hospital with sudden severe right upper quadrant pain. Cholelithiasis was identified with no evidence of cholecystitis. She was also identified to have evidence of a urinary tract infection. She received IV antibiotics. This morning, the patient was apparently pending discharge but developed a subsequent low-grade fever, sinus tachycardia and transient hypoxemia. At the moment, the patient is in CT scan pending a CT angiogram but they are having difficulty obtaining IV access for the scan. The patient is feeling more comfortable now. She denies any significant symptoms. She has no abdominal pain, chest discomfort, etc. Patient is currently in the process of being transferred to the ICU for closer monitoring. I was asked see the patient for assistance with management of her cardiac issues. Allergies/Medications Allergies: Coded Allergies: Influenza Virus Vaccines (RASH, HIVES 06/22/16) pantoprazole (From PROTONIX) (Intermediate, Facial redness 07/06/18) Home Med List: Aspirin (Ecotrin*) 81 MG TABLET.DR 1 TAB PO DAILY HEART/BLOOD (Reported) Cholecalciferol (Vitamin D3) (Vitamin D) 2,000 UNIT CAPSULE 2 CAP PO DAILY SUPPLEMENT (Reported) Clopidogrel Bisulfate (Clopidogrel) 75 MG TABLET 1 TAB PO DAILY BLOOD THINNER (Reported) Cyclobenzaprine HCl 5 MG TABLET 1 TAB PO QPM PRN Muscle Spasms (Reported) Evolocumab (Repdoris Duran) 140 MG/ML PEN.INJCTR 140 MG SC Q2W CHOLESTEROL (Reported) Fish Oil/Borage/Flax/Om3,6,9#1 (Triple [place] Complex 3-6-9) (Unknown Strength) CAPSULE 2 CAP PO BID SUPPLEMENT (Reported) Lisinopril 2.5 MG TABLET 1 TAB PO DAILY HEART (Reported) Metoprolol Tartrate 25 MG TABLET 0.5 TAB PO BID HEART (Reported) Montelukast Sodium 10 MG TABLET 1 TAB PO DAILY ALLERGIES (Reported) Multivit-Min/FA/Lycopen/Lutein (Centrum Silver Tablet) 0.4 MG-300 MCG-250 MCG TABLET 1 TAB PO DAILY SUPPLEMENT (Reported) Saccharomyces Boulardii (Probiotic) (Unknown Strength) CAPSULE (Unknown Dose) PO DAILY SUPPLEMENT (Reported) Vitamin B Complex 1 EACH CAPSULE 1 CAP PO DAILY SUPPLEMENT (Reported) Current Medications: Current Medications Sig/Kalyani Start time Last Medication Dose Route Stop Time Status Admin Acetaminophen 650 MG Q6P PRN 07/04 2330 AC 07/06 PO 1212 Aspirin Buffered 81 MG DAILY 07/05 900 AC 07/06 PO 09 Calcium Carbonate 500 MG Q4 HRS NEEDED PRN 07/05 1445 DC 07/05 PO 1435 Calcium Carbonate 0 .STK-MED ONE 07/05 1433 DC PO Ceftriaxone Sodium 1,000 MG DAILY 07/05 2100 DC IV Ceftriaxone Sodium 1,000 MG 2100 07/05 2100 AC 07/05 IV 2013 Cholecalciferol 4,000 IU DAILY 07/05 0900 AC 07/06 PO 09 Clopidogrel Bisulfate 75 MG DAILY 07/05 0900 AC 07/06 PO 0908 Cyclobenzaprine HCl 5 MG QPM PRN 07/05 0215 AC PO Dextrose/Sodium 1,000 ML Q10H 07/06 1200 DC Chloride IV Dextrose/Sodium 1,000 ML Q10H 07/06 1015 DC Chloride IV Enoxaparin Sodium 40 MG DAILY 07/05 0900 AC 07/06 SC 0908 Hydromorphone HCl 0.4 MG ONCE ONE 07/05 1530 DC 07/05 IV 07/05 1531 1555 Hydromorphone HCl 0.4 MG Q4P PRN 07/05 1530 DC 07/06 IV 0909 Lisinopril 2.5 MG DAILY 07/05 09 AC 07/06 PO 09 Metoclopramide HCl 10 MG Q6P PRN 07/05 0400 AC 07/06 IV 0906 Metoprolol Tartrate 12.5 MG BID 07/05 0300 AC 07/06 PO 09 Metronidazole 500 MG IQ8 07/06 1600 AC N/A 1 UNIT IV Montelukast Sodium 10 MG 07/05 2100 DC 07/05 PO 2013 Morphine Sulfate 2 MG Q6P PRN 07/04 2330 AC IV Oxycodone/ 2 TAB Q6P PRN 07/06 1130 AC Acetaminophen PO Oxycodone/ 1 TAB Q6P PRN 07/04 2330 AC Acetaminophen PO Pantoprazole Sodium 40 MG BID 07/06 1244 AC IV Sodium Chloride 1,000 ML Q8H 07/06 1200 AC 07/06 IV 1209 Past History Travel History Traveled to [place] past 21 day No Medical History Neurological: NONE EENT: NONE Cardiovascular: CAD, hyperlipidemia, myocardial infarction Respiratory: NONE Gastrointestinal: NONE Hepatic: NONE Renal: KIDNEY STONES Musculoskeletal: NONE Psychiatric: NONE Endocrine: NONE Blood Disorders: NONE Cancer(s): NONE DRIVER GUARD/Reproductive: NONE Surgical History Surgical History: PTCA WITH STENT Psychosocial History Where Do You Live? Home Who Do You Live With? self Services at Home: None Primary Language: Vietnamese Smoking Status: Former Smoker ETOH Use: denies use Illicit Drug Use: denies illicit drug use Functional Ability ADLs Independent: dressing, eating, toileting, bathing. Ambulation: independent IADLs Independent: shopping, housework, finances, food prep, telephone, transportation , medication admin. Exam & Diagnostic Data Vital Signs and I&O Vital Signs Date Time Temp Pulse Resp B/P B/P Pulse O2 O2 Flow FiO2 Mean Ox Delivery Rate 07/06 1259 100.2 07/06 1212 99.1 07/06 0908 100 114/72 07/06 0907 100 114/72 07/06 0800 100 Room Air 07/06 0652 100.7 98 20 118/60 94 Room Air 07/05 2039 99.0 88 18 122/72 95 Room Air 07/05 2013 88 122/74 07/05 1430 97.0 66 20 118/60 97 Room Air Intake & Output 07/06 1600 07/06 0800 07/06 0000 07/05 1600 07/05 0800 07/05 0000 Intake Total 0 700 096 846 3337 Output Total Balance 0 700 346 613 6167 Intake, IV 0 512 003 4824 Intake, Oral 0 700 240 80 Number 0 0 Bowel Movements Patient 187 lb 187 lb Weight Weight Reported by Patient Measurement Method Physical Exam: General Appearance Alert, Oriented X3, Cooperative, overweight, no Acute Distress Skin normal HEENT Atraumatic, PERRLA, EOMI, Mucous Membr. moist/pink Neck Supple, JVP normal, carotids appear normal bilaterally. No audible bruits Cardiovascular Regular Rate, Normal S1, Normal S2, No audible murmurs Lungs Clear to Auscultation and percussion bilaterally Abdomen Normal Bowel Sounds, Soft, No visible lesions. Soft, nondistended. Tender to deep palpation on particularly in RUQ. Negative valentine's. Positive CVA tenderness on the right. Extremities No Clubbing, No Edema Labs/Vin Results: Laboratory Tests 07/06 07/06 1115 1015 Hematology CBC w Diff NO MAN DIFF REQ Cancelled WBC (4.8 - 10.8 /CUMM) 19.3 H Cancelled RBC (4.20 - 5.40 /CUMM) 4.08 L Cancelled Hgb (12.0 - 16.0 G/DL) 12.2 Cancelled Hct (37 - 47 %) 35.4 L Cancelled MCV (81.0 - 99.0 FL) 86.7 Cancelled MCH (27.0 - 31.0 PG) 29.9 Cancelled MCHC (33.0 - 37.0 G/DL) 34.4 Cancelled RDW (11.5 - 14.5 %) 13.9 Cancelled Plt Count (130 - 400 /CUMM) 311 Cancelled MPV (7.4 - 10.4 FL) 7.9 Cancelled Gran % (42.2 - 75.2 %) 80.4 H Lymphocytes % (20.5 - 51.1 %) 10.2 L Monocytes % (1.7 - 9.3 %) 9.4 H Eosinophils % (0 - 5 %) 0 Basophils % (0.0 - 2.0 %) 0 Absolute Granulocytes (1.4 - 6.5 /CUMM) 15.5 H Absolute Lymphocytes (1.2 - 3.4 /CUMM) 2.0 Absolute Monocytes (0.10 - 0.60 /CUMM) 1.8 H Absolute Eosinophils (0.0 - 0.7 /CUMM) 0 Absolute Basophils (0.0 - 0.2 /CUMM) 0 07/06 07/05 0604 1100 Chemistry Sodium (137 - 145 mmol/L) 137 137 Potassium (3.5 - 5.1 mmol/L) 3.9 3.5 Chloride (98 - 107 mmol/L) 99 101 Carbon Dioxide (22 - 30 mmol/L) 24 24 Anion Gap (5 - 16) 15 12 BUN (7 - 17 mg/dL) 8 9 Creatinine (0.5 - 1.0 mg/dL) 0.6 0.5 Estimated GFR (>60 ml/min) > 60 > 60 BUN/Creatinine Ratio (7 - 25 %) 13.3 18.0 Total Bilirubin (0.2 - 1.3 mg/dL) 0.6 Direct Bilirubin (< 0.4 mg/dL) 0.1 AST (14 - 36 U/L) 26 ALT (9 - 52 U/L) 31 Alkaline Phosphatase (<127 U/L) 77 Total Protein (6.3 - 8.2 g/dL) 6.8 Albumin (3.5 - 5.0 g/dL) 3.9 Amylase (30 - 110 U/L) 39 Lipase (23 - 300 U/L) 67 Hematology CBC w Diff NO MAN DIFF REQ NO MAN DIFF REQ WBC (4.8 - 10.8 /CUMM) 21.2 H 14.8 H RBC (4.20 - 5.40 /CUMM) 4.43 4.31 Hgb (12.0 - 16.0 G/DL) 13.2 12.9 Hct (37 - 47 %) 38.7 37.2 MCV (81.0 - 99.0 FL) 87.4 86.3 MCH (27.0 - 31.0 PG) 29.9 30.0 MCHC (33.0 - 37.0 G/DL) 34.2 34.8 RDW (11.5 - 14.5 %) 14.0 14.3 Plt Count (130 - 400 /CUMM) 343 353 MPV (7.4 - 10.4 FL) 8.0 7.6 Gran % (42.2 - 75.2 %) 79.5 H 82.7 H Lymphocytes % (20.5 - 51.1 %) 10.6 L 7.9 L Monocytes % (1.7 - 9.3 %) 9.7 H 9.1 Eosinophils % (0 - 5 %) 0 0 Basophils % (0.0 - 2.0 %) 0.2 0.3 Absolute Granulocytes (1.4 - 6.5 /CUMM) 16.8 H 12.2 H Absolute Lymphocytes (1.2 - 3.4 /CUMM) 2.2 1.2 Absolute Monocytes (0.10 - 0.60 /CUMM) 2.1 H 1.3 H Absolute Eosinophils (0.0 - 0.7 /CUMM) 0 0 Absolute Basophils (0.0 - 0.2 /CUMM) 0 0 07/05 07/04 0325 1925 Chemistry Troponin I (< 0.11 ng/ml) 0.02 Urines Urine Color (YEL,AMB,STR) YEL Urine Clarity (CLEAR) HAZY H Urine pH (5.0 - 8.0) 6.0 Ur Specific [place] (1.001 - 1.035) 1.010 Urine Protein (NEG,<30 MG/DL) NEG Urine Ketones (NEG) 15 H Urine Nitrite (NEG) POS H Urine Bilirubin (NEG) NEG Urine Urobilinogen (0.1 - 1.0 EU/dl) 0.2 Ur Leukocyte Esterase (NEG) LARGE H Ur Microscopic SEDIMENT EXAMINED Urine RBC (0 - 5 /HPF) 1-3 Urine WBC (0 - 2 /HPF) 25-50 H Ur Epithelial Cells (NONE,FEW) RARE Urine Bacteria (NEG/NONE) MANY H Urine Hemoglobin (NEG) MOD H Urine Glucose (N MG/DL) NEG 07/04 1741 Chemistry Sodium (137 - 145 mmol/L) 139 Potassium (3.5 - 5.1 mmol/L) 4.1 Chloride (98 - 107 mmol/L) 102 Carbon Dioxide (22 - 30 mmol/L) 27 Anion Gap (5 - 16) 9 BUN (7 - 17 mg/dL) 18 H Creatinine (0.5 - 1.0 mg/dL) 0.7 Estimated GFR (>60 ml/min) > 60 BUN/Creatinine Ratio (7 - 25 %) 25.7 H Glucose (65 - 99 mg/dL) 109 H Calcium (8.4 - 10.2 mg/dL) 9.9 Total Bilirubin (0.2 - 1.3 mg/dL) 0.7 AST (14 - 36 U/L) 33 ALT (9 - 52 U/L) 33 Alkaline Phosphatase (<127 U/L) 88 Troponin I (< 0.11 ng/ml) < 0.01 C-React Prot High Sens (1.0 - 3.0 mg/L) 10.1 H Total Protein (6.3 - 8.2 g/dL) 7.7 Albumin (3.5 - 5.0 g/dL) 4.5 Globulin (1.9 - 4.2 gm/dL) 3.2 Albumin/Globulin Ratio (1.1 - 2.2 %) 1.4 Amylase (30 - 110 U/L) 55 Lipase (23 - 300 U/L) 48 Hematology CBC w Diff NO MAN DIFF REQ WBC (4.8 - 10.8 /CUMM) 15.1 H RBC (4.20 - 5.40 /CUMM) 4.72 Hgb (12.0 - 16.0 G/DL) 13.8 Hct (37 - 47 %) 40.9 MCV (81.0 - 99.0 FL) 86.6 MCH (27.0 - 31.0 PG) 29.3 MCHC (33.0 - 37.0 G/DL) 33.9 RDW (11.5 - 14.5 %) 14.5 Plt Count (130 - 400 /CUMM) 365 MPV (7.4 - 10.4 FL) 7.6 Gran % (42.2 - 75.2 %) 80.0 H Lymphocytes % (20.5 - 51.1 %) 14.5 L Monocytes % (1.7 - 9.3 %) 5.0 Eosinophils % (0 - 5 %) 0.2 Basophils % (0.0 - 2.0 %) 0.3 Absolute Granulocytes (1.4 - 6.5 /CUMM) 12.0 H Absolute Lymphocytes (1.2 - 3.4 /CUMM) 2.2 Absolute Monocytes (0.10 - 0.60 /CUMM) 0.7 H Absolute Eosinophils (0.0 - 0.7 /CUMM) 0 Absolute Basophils (0.0 - 0.2 /CUMM) 0.1 Diagnostic Data EKG Results Sinus tachycardia with lateral ST changes Other Results abdominal / pelvic CT: FINDINGS: LUNG BASES: The visualized lung bases are unremarkable. LIVER, GALLBLADDER, AND BILIARY TREE: The liver is normal in size, shape, and attenuation. No focal hepatic lesion or biliary ductal dilatation is present. There is a large gallstone. There are no CT findings to suggest acute cholecystitis. No biliary ductal dilatation. PANCREAS: Unremarkable. SPLEEN: Calcified splenic granulomas. ADRENAL GLANDS: Unremarkable. KIDNEYS AND URETERS: The kidneys are normal in size, shape, and attenuation. No hydronephrosis, hydroureter, or calculi seen. No perinephric stranding. BLADDER: Unremarkable. GASTROINTESTINAL TRACT: Marked diverticulosis of the descending and sigmoid colon. No focal inflammatory process or obstruction. ABDOMINAL WALL: No significant hernia is appreciated. LYMPH NODES: Normal. VASCULAR: Unremarkable. PELVIC VISCERA: The uterus is absent. OSSEOUS STRUCTURES: Unremarkable. IMPRESSION: No focal inflammatory process or obstruction. There is extensive sigmoid and descending colon diverticulosis. There is a large gallstone. No CT evidence of acute cholecystitis. Assessment/Plan Assessment/Plan Assessment: 1. Sepsis; ? urologic origin 2. Elevated troponin with non specific ST changes ; suggestive of demand ischemia related to sepsis,tachycardia 3. Choleliathisis 4. CAD; reported stent and CABG 01/18 5. HLD 6. Factor V Leiden Mutation Recommendations: -Obtain copies of outside cardiology records for further review. -In the absence of any contraindications, continue current cardiac medications for now. -Please check an EKG on arrival to the ICU and again in AM -Echocardiogram to rule out new wall motion abnormalities. -Trend troponin until decreasing -Agreee with starting IV heparin pending above results. -Please notify me of any change in the patient's status -Otherwise continue as per the ICU team Consult Acknowledgment - Thank you for your consult request.
--- NOTE | 2018-07-06 15:13 | CT SCAN REPORT ---
EXAMINATION: CT ANGIOGRAM OF THE CHEST WITH AND WITHOUT CONTRAST (CT PULMONARY ANGIOGRAM FOR PE) CLINICAL INFORMATION: Hypoxia; question pulmonary embolus. COMPARISON: Chest radiograph dated 07/02/2012. TECHNIQUE: Prior to contrast administration, noncontrast localization images were obtained. Subsequently, multidetector volumetric imaging was performed from the thoracic inlet to below the diaphragms following the administration of 95 mL Optiray 320 intravenous contrast. No contrast reaction reported. Sagittal, coronal, and MIP oblique sagittal reformatted images were obtained on the CT workstation, uploaded to PACS, and reviewed. Total exam dose-length product 1300.16 mGy-cm (chest, abdomen and pelvis). FINDINGS: QUALITY OF STUDY/CONTRAST BOLUS: Satisfactory PULMONARY ARTERIES: No central or segmental pulmonary emboli. THORACIC AORTA: No aneurysm or dissection. LUNG: No focal consolidation, nodules or masses. There is multifocal mild bibasilar linear scar/subsegmental atelectasis. PLEURA: No significant pleural effusion or pneumothorax. MEDIASTINUM: Normal heart size. There has been a prior CABG procedure. No pericardial effusion. No hilar or mediastinal lymphadenopathy. No evidence of septal bowing or right heart strain. CHEST WALL/AXILLA: No axillary or internal mammary lymphadenopathy. OSSEOUS STRUCTURES: There is multi-level moderate thoracic spondylosis. No acute or aggressive osseous abnormality is seen. IMPRESSION: 1. No pulmonary embolus or thoracic aortic aneurysm or dissection is seen. 2. No focal infiltrate is seen. There is no pleural effusion. 3. There is multifocal mild bibasilar linear scar/subsegmental atelectasis. VTE: negative EXAMINATION: CT ABDOMEN AND PELVIS WITH CONTRAST CLINICAL INFORMATION: Fever and sepsis. COMPARISON: CT the abdomen and pelvis dated 07/04/2018. TECHNIQUE: Multidetector volumetric imaging was performed of the abdomen and pelvis following IV administration of 95 mL of Optiray 320 intravenous contrast. Sagittal and coronal reformatted images were obtained on the technologist's workstation. DLP: 1300.16 mGy-cm (chest, abdomen and pelvis) FINDINGS: LIVER, GALLBLADDER, AND BILIARY TREE: The liver is normal in size, shape, and attenuation. No focal hepatic lesion or biliary ductal dilatation is present. The gallbladder contains a 3.9 cm lamellated gallstone. There is diffuse gallbladder wall thickening, and pericholecystic fluid and fat stranding are seen. PANCREAS: Unremarkable. SPLEEN: Unremarkable. ADRENAL GLANDS: Unremarkable. KIDNEYS AND URETERS: The kidneys are normal in size, shape, and attenuation. No hydronephrosis, hydroureter, or calculi seen. No perinephric stranding. BLADDER: Unremarkable. GASTROINTESTINAL TRACT: There is marked diverticulosis, without acute diverticulitis. No bowel obstruction, free intraperitoneal air or abscess is seen. The vermiform appendix appears normal. ABDOMINAL WALL: No significant hernia is appreciated. LYMPH NODES: Normal. VASCULAR: Unremarkable. PELVIC VISCERA: Question prior hysterectomy. No pelvic mass is seen. There is mild low-attenuation free fluid in the dependent right hemipelvis. OSSEOUS STRUCTURES: There is mild lumbar spondylosis. There is mild degenerative disc disease at L1-L2. No acute or aggressive osseous abnormality is seen. IMPRESSION: 1. Findings are consistent with cholelithiasis and acute cholecystitis. 2. There is marked diverticulosis, without acute diverticulitis. The vermiform appendix appears normal. 3. No bowel obstruction, free intraperitoneal air or abscess is seen. 4. There is a small amount of nonspecific free fluid in the dependent right hemipelvis.
[2018-07-06 16:00] VITALS: BP 100/60
[2018-07-06 16:03] LABS: ABSOLUTE BASOPHIL COUNT 0 /CUMM (0.0-0.2); ABSOLUTE EOSINOPHIL COUNT 0 /CUMM (0.0-0.7); ABSOLUTE GRANULOCYTE CT 17.7 /CUMM (1.4-6.5); ABSOLUTE LYMPH COUNT 0.8 /CUMM (1.2-3.4); ABSOLUTE MONOCYTE COUNT 1.3 /CUMM (0.10-0.60); BASOPHIL % 0 % (0.0-2.0); EOSINOPHIL % 0 % (0-5); GRANULOCYTE % 89.5 % (42.2-75.2); HEMATOCRIT 35.3 % (37-47); MEAN CORPUSCULAR HGB 30.4 PG (27.0-31.0); MEAN CORPUSCULAR HGB CONC 34.8 G/DL (33.0-37.0); MEAN CORPUSCULAR VOLUME 87.2 FL (81.0-99.0); MEAN PLATELET VOLUME 7.8 FL (7.4-10.4); PLATELET COUNT 297 /CUMM (130-400); RBC DISTRIBUTION WIDTH 13.6 % (11.5-14.5); RED BLOOD CELL CT 4.05 /CUMM (4.20-5.40); WHITE BLOOD CELL COUNT 19.8 /CUMM (4.8-10.8)
--- NOTE | 2018-07-06 17:34 | Event Note ---
Event Note Event Note: Patient's troponin came back positive at 2.75 today. She does not have any chest pain and EKG is nonspecific. I talked to Dr. Ferrari and he recommends starting heparin at this time. We will trend the troponins and EKGs and get an echocardiogram tomorrow. The attending Dr. Mclean was also informed. Additionally, CT scan showed no evidence of PE but did show evidence of acute cholecystitis. Surgery was informed and recommends no surgical intervention at this time. We will get HIDA scan tomororw.
[2018-07-07] VITALS: BP 98/57
[2018-07-07 00:32] LABS: PTT 38 SEC (25-37)
[2018-07-07 05:10] LABS: ABSOLUTE BASOPHIL COUNT 0 /CUMM (0.0-0.2); ABSOLUTE EOSINOPHIL COUNT 0 /CUMM (0.0-0.7); ABSOLUTE GRANULOCYTE CT 12.1 /CUMM (1.4-6.5); ABSOLUTE LYMPH COUNT 1.8 /CUMM (1.2-3.4); ABSOLUTE MONOCYTE COUNT 1.3 /CUMM (0.10-0.60); BASOPHIL % 0.2 % (0.0-2.0); EOSINOPHIL % 0.1 % (0-5); HEMATOCRIT 33.2 % (37-47); MEAN CORPUSCULAR HGB 30.1 PG (27.0-31.0); MEAN CORPUSCULAR HGB CONC 34.6 G/DL (33.0-37.0); MEAN PLATELET VOLUME 7.8 FL (7.4-10.4); PLATELET COUNT 280 /CUMM (130-400); RBC DISTRIBUTION WIDTH 13.8 % (11.5-14.5); RED BLOOD CELL CT 3.81 /CUMM (4.20-5.40); WHITE BLOOD CELL COUNT 15.3 /CUMM (4.8-10.8)
[2018-07-07 05:35] LABS: GRANULOCYTE % 79.2 % (42.2-75.2)
--- NOTE | 2018-07-07 07:07 | PN- Resident CRCU ---
See Addendum Subjective HPI/CRCU Issues: Acute Cholecytitis Elevated Troponins, on Heparin Drip Factor 5 Leiden (heterozygous) Deficiency 24 Hour Events: Patient was transferred to us yesterday after having tachycardia and leukocytosis and fevers with poor clinical picture. She had lactate of 2.0, CT findings of acute cholecystitis, progressed from July 04 when scan only showed cholelithiasis, positive troponins at 2.7-->2.8 trending downwards now. Started on heparin drip and made NPO. Overnight patient complained of chills, continued abdominal pain. States that the urinary symptoms have resolved. States that she does not have chest pain currently, but is anxious because she was told that her troponins were elevated. Stated relief that her troponins were trending downwards. States that she has been compliant with all of her medication since her recent CABG. Denied any other complaints. On day 4 of ceftriaxone, day 2 of flagyl. Heart rate 76-104 with NSR+ST on monitor; pressures 82-145/50-80, and Afebrile with good sats on room air. Objective Vital Signs & I&O Last 8 Hrs of Vitals and I&O: 07/07 0000 98.4 89 27 98/57 96 Room Air 07/07 0000 96 Room Air 07/06 2156 92 108/61 07/06 2000 96 Room Air 07/06 1600 94 Room Air Room Air 07/06 1600 97.6 109 18 100/60 94 Room Air Room Air Exam General Appearance: no apparent distress, alert, awake, anxious Head: atraumatic Ears, Nose, Throat: normal pharynx Neck: normal inspection Respiratory: normal breath sounds, lungs clear Cardiovascular: regular rate/rhythm Gastrointestinal: soft, RUQ tenderness, unchanged since yesterday. No suprapubic tenderness, no CVA tenderness Extremities: normal inspection, no edema Cranial Nerves: normal hearing, normal speech Skin: intact, clammy Skin Temp/Moisture Exam: Cool/Diaphoretic Sepsis Skin Exam (color): Normal for Ethnicity Back: normal inspection Current Medications: Current Medications Sig/Kalyani Start time Last Medication Dose Route Stop Time Status Admin Acetaminophen 650 MG Q6P PRN 07/04 2330 AC 07/07 PO 0448 Aspirin Buffered 81 MG DAILY 07/05 09 AC 07/06 PO 09 Calcium Carbonate 500 MG Q4 HRS NEEDED PRN 07/05 1445 DC 07/05 PO 1435 Ceftriaxone Sodium 1,000 MG 2100 07/05 2100 AC 07/06 IV 2156 Cholecalciferol 4,000 IU DAILY 07/05 0900 AC 07/06 PO 0907 Clopidogrel Bisulfate 75 MG DAILY 07/05 0900 AC 07/06 PO 0908 Cyclobenzaprine HCl 5 MG QPM PRN 07/05 0215 AC PO Dextrose/Sodium 1,000 ML Q10H 07/06 1200 DC Chloride IV Dextrose/Sodium 1,000 ML Q10H 07/06 1015 DC Chloride IV Docusate Sodium 100 MG DAILY NEEDED PRN 07/07 0500 AC PO Enoxaparin Sodium 40 MG DAILY 07/05 09 DC 07/06 SC 0908 Heparin Sodium 5,000 UNIT BOLUS ONE 07/07 0200 DC 07/07 (Porcine) IV 07/07 0201 0115 Heparin Sodium 0 .STK-MED ONE 07/07 0108 DC (Porcine) .ROUTE Heparin Sodium 25,000 UNIT Q24H 07/06 1745 AC 07/06 (Porcine) IV 1821 Sodium Chloride 500 ML Hydromorphone HCl 0.4 MG Q4P PRN 07/05 1530 DC 07/06 IV 0909 Lisinopril 2.5 MG DAILY 07/05 09 AC 07/06 PO 0908 Metoclopramide HCl 10 MG Q6P PRN 07/05 0400 AC 07/06 IV 0906 Metoprolol Tartrate 12.5 MG BID 07/05 0300 AC 07/06 PO 2156 Metronidazole 500 MG IQ8 07/06 1600 AC 07/07 N/A 1 UNIT IV 0834 Montelukast Sodium 10 MG 2100 07/05 2100 DC 07/05 PO 2013 Morphine Sulfate 2 MG Q6P PRN 07/04 2330 AC IV Oxycodone/ 2 TAB Q6P PRN 07/06 1130 AC Acetaminophen PO Oxycodone/ 1 TAB Q6P PRN 07/04 2330 AC Acetaminophen PO Pantoprazole Sodium 40 MG BID 07/06 1244 DC IV Potassium Chloride 0 .STK-MED ONE 07/07 0649 DC PO Potassium Chloride 40 MEQ ONCE ONE 07/07 0645 DC 07/07 PO 07/07 0646 0647 Potassium Chloride 10 MEQ ONCE ONE 07/07 0615 CAN IV 07/07 0616 Potassium Chloride 10 MEQ Q1H 07/07 0615 DC 07/07 IV 07/07 0716 0642 Sodium Chloride 1,000 ML Q8H 07/06 1200 AC 07/07 IV 0416 Impression/Plan Impression/Problem List Impression: Ms. Grewal is a 57-year-old female with a past medical history of NH s/p PCI and stent in 2011 and then in 2018 x2 (LAD and LCx at [facility]) and CABG (last in January 16 2018, LAD, Marginal, Diagonal branch at [facility]), hyperlipidemia and Factor V Leiden (heterozygous) mutation presented to the ED for evaluation of abdominal pain that started on 07/04/2018. She was found to have urinary tract infection, E. coli, pansensitive, and has been on ceftriaxone for it. She was also found to have cholelithiasis with evidence of cholecystitis on CAT scan on 07/06/18. On the morning of July 06, she had low-grade fever 100.7 as well as leukocytosis, which was confirmed on repeat CBC, looked poor on clinical exam. ICU was consulted by general medicine team for further management. CTA was negative for pulmonary embolism, lactic was 2, troponins were elevated to 2.75 - -> 2.82; trending downwards at 2.10 this AM. She was transferred to ICU due to: Tachycardia 2/2 sepsis of unknown origin, poor clinical picture Her current problems are: Leukocytosis, Acute Cholecystitis, NSTEMI #Respiratory - stable, improved -Desaturated yesterday to 88%. Currently on RA with good saturations -CTA negative for acute pulmonary process/PE -Was On lovenox for DVT ppx, currently on heparin drip. Will be stopped for perc tube today. #Infectious disease - Acute cholecystitis going for perc tube today; UTI ( resolving) -Leukocytosis 21->19->19->15.3 on this AM CBC. Afebrile overnight, but is clammy and complained of chills. -Abx broadened, flagyl started yesterday. On Ceftriaxone, day #4, flagyl day #2 -Lactate neg -On NS, 125cc/hour -UA on admission had leuk esterase, bacteria, previously grew E.coli pansensitive back in February 2018 -CT A/P shows acute cholecystitis. Will be going to IR for percutaneous tube, discussed with IR and Surgery today. -Appreciate surgical and IR input on this case. #Cardiovascular/circulation -NSR + ST overnight, rate 76-104. Has had afib in the past. -Significant cardiac history for NH in 2011, 2017, 3-vessel CABG (LAD, Marginal, Diagonal branch) and 2x stents in January of [address] [facility] (LAD, LCx). -Records obtained via EMR from [facility]. *Echo in 04/2018 shows: * Normal left ventricular size with overall normal systolic ejection function ejection fraction 50% mild hypokinesis of the apical inferior wall * Mild to moderate mitral regurg * Moderate tricuspid regurg with normal right heart pressures * Normal right ventricular cavity size and systolic function * Mildly dilated left atrium -Cardiology recs appreciated, on heparin drip which will be stopped for perc tube; troponins trending downwards. EKG without ST elevation; ECHO pending today -Blood pressures 82-145 systolic over 50-80 diastolic. Is on NS 125cc/hour. #Hematologic - stable -History of heterozygous factor V leiden -H/H 11.5/33.2, previously 12.3/35.3, at 0400 this morning -Likely dilutional anemia as WBC, Hb, Plts all decreased. #Metabolic - elevated AST; hypophosphatemia -Lactate 2.0 -LFT - AST/ALT 63/42; potentially from acute cholecystitis. Will monitor with ICU bundle in AM -This AMs chemistry showed potassium of 3.1; given 40mEq oral K, 10mEq IV K. -Phosphorus low at 2.2. Will address with diet. #Alimentary - stable -NPO pending procedure. Will restart diet post procedure #Neurological - intact, stable #Nephro - stable -BUN/Cr unremarkable -Urinary symptoms resolved. No hydro noted DVT prophylaxis - ALPS + Pharmacological IV access - Peripheral Full code Problem List: 1. Coronary artery disease 2. Acute cholecystitis due to biliary calculus 3. Urinary tract infection Pain Ratin Tomorrow's Labs & Rationales: CBC, ICU bundle Plan DVT/Prophylaxis: mechanical, pharmacological
--- NOTE | 2018-07-07 07:43 | PN- General Surgery ---
Subjective Subjective: Patient doing fairly well this am. She reports mild pain in the right upper quadrant without associated nausea, vomiting, or fevers. She did have some chills overnight. Objective Vital Signs and I&Os Vital Signs Date Time Temp Pulse Resp B/P B/P Pulse O2 O2 Flow FiO2 Mean Ox Delivery Rate 07/07 0000 98.4 89 27 98/57 96 Room Air 07/07 0000 96 Room Air 07/06 2156 92 108/61 07/06 2000 96 Room Air 07/06 1600 94 Room Air Room Air 07/06 1600 97.6 109 18 100/60 94 Room Air Room Air 07/06 1431 97.6 07/06 1259 100.2 07/06 1212 99.1 07/06 0908 100 114/72 07/06 0907 100 114/72 07/06 0800 100 Room Air Intake & Output 07/07 0800 07/07 0000 07/06 1600 07/06 0800 07/06 0000 07/05 1600 Intake Total 1328 395 0 700 390 Output Total 650 1050 Balance 678 -655 0 700 390 Intake, IV 1228 345 0 150 Intake, Oral 100 50 0 700 240 Number 0 0 0 Bowel Movements Output, Urine 650 1050 Patient 188 lb Weight Weight Bed scale Measurement Method Physical Exam: General: Alert, awake, distress Abdomen: Soft, obese, tender to palpation in the right upper quadrant without any rebound or guarding Extremities: No clubbing, cyanosis, or edema Current Medications: Current Medications Sig/Kalyani Start time Last Medication Dose Route Stop Time Status Admin Acetaminophen 650 MG Q6P PRN 07/04 2330 AC 07/07 PO 0448 Aspirin Buffered 81 MG DAILY 07/05 900 AC 07/06 PO 906 Calcium Carbonate 500 MG Q4 HRS NEEDED PRN 07/05 1445 DC 07/05 PO 1435 Ceftriaxone Sodium 1,000 MG 2100 07/05 2100 AC 07/06 IV 2156 Cholecalciferol 4,000 IU DAILY 07/05 900 AC 07/06 PO 09 Clopidogrel Bisulfate 75 MG DAILY 07/05 900 AC 07/06 PO 0908 Cyclobenzaprine HCl 5 MG QPM PRN 07/05 0215 AC PO Dextrose/Sodium 1,000 ML Q10H 07/06 1200 DC Chloride IV Dextrose/Sodium 1,000 ML Q10H 07/06 1015 DC Chloride IV Docusate Sodium 100 MG DAILY NEEDED PRN 07/07 0500 AC PO Enoxaparin Sodium 40 MG DAILY 07/05 0900 DC 07/06 SC 0908 Heparin Sodium 5,000 UNIT BOLUS ONE 07/07 0200 DC 07/07 (Porcine) IV 07/07 0201 0115 Heparin Sodium 0 .STK-MED ONE 07/07 0108 DC (Porcine) .ROUTE Heparin Sodium 25,000 UNIT Q24H 07/06 1745 AC 07/06 (Porcine) IV 1821 Sodium Chloride 500 ML Hydromorphone HCl 0.4 MG Q4P PRN 07/05 1530 DC 07/06 IV 0909 Lisinopril 2.5 MG DAILY 07/05 0900 AC 07/06 PO 0908 Metoclopramide HCl 10 MG Q6P PRN 07/05 0400 AC 07/06 IV 0906 Metoprolol Tartrate 12.5 MG BID 07/05 0300 AC 07/06 PO 2156 Metronidazole 500 MG IQ8 07/06 1600 AC 07/06 N/A 1 UNIT IV 2359 Montelukast Sodium 10 MG 2100 07/05 2100 DC 07/05 PO 2013 Morphine Sulfate 2 MG Q6P PRN 07/04 2330 AC IV Oxycodone/ 2 TAB Q6P PRN 07/06 1130 AC Acetaminophen PO Oxycodone/ 1 TAB Q6P PRN 07/04 2330 AC Acetaminophen PO Pantoprazole Sodium 40 MG BID 07/06 1244 DC IV Potassium Chloride 0 .STK-MED ONE 07/07 0649 DC PO Potassium Chloride 40 MEQ ONCE ONE 07/07 0645 DC 07/07 PO 07/07 0646 0647 Potassium Chloride 10 MEQ ONCE ONE 07/07 0615 CAN IV 07/07 0616 Potassium Chloride 10 MEQ Q1H 07/07 0615 DC 07/07 IV 07/07 0716 0642 Sodium Chloride 1,000 ML Q8H 07/06 1200 AC 07/07 IV 0416 Results Last 48 Hours of Labs: Laboratory Tests 07/07 07/07 07/07 0730 0428 0003 Chemistry Sodium (137 - 145 mmol/L) 138 Potassium (3.5 - 5.1 mmol/L) 3.1 L Chloride (98 - 107 mmol/L) 102 Carbon Dioxide (22 - 30 mmol/L) 27 Anion Gap (5 - 16) 9 BUN (7 - 17 mg/dL) 7 Creatinine (0.5 - 1.0 mg/dL) 0.5 Estimated GFR (>60 ml/min) > 60 Glucose (65 - 99 mg/dL) 89 Calcium (8.4 - 10.2 mg/dL) 8.2 L Phosphorus (2.5 - 4.5 mg/dL) 2.2 L Magnesium (1.6 - 2.3 mg/dL) 1.9 Total Bilirubin (0.2 - 1.3 mg/dL) 0.5 AST (14 - 36 U/L) 63 H ALT (9 - 52 U/L) 42 Troponin I (< 0.11 ng/ml) 2.10 *H Albumin (3.5 - 5.0 g/dL) 2.9 L Coagulation APTT (25 - 37 SEC) Pending 38 H Hematology CBC w Diff NO MAN DIFF REQ WBC (4.8 - 10.8 /CUMM) 15.3 H RBC (4.20 - 5.40 /CUMM) 3.81 L Hgb (12.0 - 16.0 G/DL) 11.5 L Hct (37 - 47 %) 33.2 L MCV (81.0 - 99.0 FL) 87.0 MCH (27.0 - 31.0 PG) 30.1 MCHC (33.0 - 37.0 G/DL) 34.6 RDW (11.5 - 14.5 %) 13.8 Plt Count (130 - 400 /CUMM) 280 MPV (7.4 - 10.4 FL) 7.8 Gran % (42.2 - 75.2 %) 79.2 H Lymphocytes % (20.5 - 51.1 %) 11.9 L Monocytes % (1.7 - 9.3 %) 8.6 Eosinophils % (0 - 5 %) 0.1 Basophils % (0.0 - 2.0 %) 0.2 Absolute Granulocytes (1.4 - 6.5 /CUMM) 12.1 H Absolute Lymphocytes (1.2 - 3.4 /CUMM) 1.8 Absolute Monocytes (0.10 - 0.60 /CUMM) 1.3 H Absolute Eosinophils (0.0 - 0.7 /CUMM) 0 Absolute Basophils (0.0 - 0.2 /CUMM) 0 07/06 07/06 07/06 2105 1533 1515 Chemistry Lactic Acid Cancelled Cancelled Troponin I (< 0.11 ng/ml) 2.82 *H 07/06 07/06 1455 1236 Chemistry Sodium Cancelled Potassium Cancelled Chloride Cancelled Carbon Dioxide Cancelled Anion Gap Cancelled BUN Cancelled Creatinine Cancelled BUN/Creatinine Ratio Cancelled Lactic Acid (0.7 - 2.1 mmol/L) 2.0 Total Bilirubin (0.2 - 1.3 mg/dL) 0.6 Cancelled Direct Bilirubin (< 0.4 mg/dL) 0.2 Cancelled AST (14 - 36 U/L) 34 Cancelled ALT (9 - 52 U/L) 31 Cancelled Alkaline Phosphatase (<127 U/L) 80 Cancelled Troponin I (< 0.11 ng/ml) 2.75 *H Total Protein (6.3 - 8.2 g/dL) 6.4 Cancelled Albumin (3.5 - 5.0 g/dL) 3.4 L Cancelled Hematology CBC w Diff MAN DIFF ORDERED WBC (4.8 - 10.8 /CUMM) 19.8 H RBC (4.20 - 5.40 /CUMM) 4.05 L Hgb (12.0 - 16.0 G/DL) 12.3 Hct (37 - 47 %) 35.3 L MCV (81.0 - 99.0 FL) 87.2 MCH (27.0 - 31.0 PG) 30.4 MCHC (33.0 - 37.0 G/DL) 34.8 RDW (11.5 - 14.5 %) 13.6 Plt Count (130 - 400 /CUMM) 297 MPV (7.4 - 10.4 FL) 7.8 Gran % (42.2 - 75.2 %) 89.5 H Lymphocytes % (20.5 - 51.1 %) 3.9 L Monocytes % (1.7 - 9.3 %) 6.6 Eosinophils % (0 - 5 %) 0 Basophils % (0.0 - 2.0 %) 0 Absolute Granulocytes (1.4 - 6.5 /CUMM) 17.7 H Segmented Neutrophils (42.2 - 75.2 %) 81 H Band Neutrophils (0.0 - 5.0 %) 9 H Absolute Lymphocytes (1.2 - 3.4 /CUMM) 0.8 L Lymphocytes (20.5 - 51.1 %) 7 L Monocytes (1.7 - 9.3 %) 2 Absolute Monocytes (0.10 - 0.60 /CUMM) 1.3 H Absolute Eosinophils (0.0 - 0.7 /CUMM) 0 Absolute Basophils (0.0 - 0.2 /CUMM) 0 Metamyelocytes (0.0 - 1.0 %) 1 Platelet Estimate (ADEQUATE) ADEQUATE Normocytic RBCs VERIFIED Normochromic RBCs VERIFIED 07/06 07/06 07/06 1215 1115 1015 Chemistry Lactic Acid Cancelled Phosphorus Cancelled Magnesium Cancelled Troponin I Cancelled Hematology CBC w Diff NO MAN DIFF REQ Cancelled WBC (4.8 - 10.8 /CUMM) 19.3 H Cancelled RBC (4.20 - 5.40 /CUMM) 4.08 L Cancelled Hgb (12.0 - 16.0 G/DL) 12.2 Cancelled Hct (37 - 47 %) 35.4 L Cancelled MCV (81.0 - 99.0 FL) 86.7 Cancelled MCH (27.0 - 31.0 PG) 29.9 Cancelled MCHC (33.0 - 37.0 G/DL) 34.4 Cancelled RDW (11.5 - 14.5 %) 13.9 Cancelled Plt Count (130 - 400 /CUMM) 311 Cancelled MPV (7.4 - 10.4 FL) 7.9 Cancelled Gran % (42.2 - 75.2 %) 80.4 H Lymphocytes % (20.5 - 51.1 %) 10.2 L Monocytes % (1.7 - 9.3 %) 9.4 H Eosinophils % (0 - 5 %) 0 Basophils % (0.0 - 2.0 %) 0 Absolute Granulocytes (1.4 - 6.5 /CUMM) 15.5 H Absolute Lymphocytes (1.2 - 3.4 /CUMM) 2.0 Absolute Monocytes (0.10 - 0.60 /CUMM) 1.8 H Absolute Eosinophils (0.0 - 0.7 /CUMM) 0 Absolute Basophils (0.0 - 0.2 /CUMM) 0 07/06 07/05 0604 1100 Chemistry Sodium (137 - 145 mmol/L) 137 137 Potassium (3.5 - 5.1 mmol/L) 3.9 3.5 Chloride (98 - 107 mmol/L) 99 101 Carbon Dioxide (22 - 30 mmol/L) 24 24 Anion Gap (5 - 16) 15 12 BUN (7 - 17 mg/dL) 8 9 Creatinine (0.5 - 1.0 mg/dL) 0.6 0.5 Estimated GFR (>60 ml/min) > 60 > 60 BUN/Creatinine Ratio (7 - 25 %) 13.3 18.0 Total Bilirubin (0.2 - 1.3 mg/dL) 0.6 Direct Bilirubin (< 0.4 mg/dL) 0.1 AST (14 - 36 U/L) 26 ALT (9 - 52 U/L) 31 Alkaline Phosphatase (<127 U/L) 77 Total Protein (6.3 - 8.2 g/dL) 6.8 Albumin (3.5 - 5.0 g/dL) 3.9 Amylase (30 - 110 U/L) 39 Lipase (23 - 300 U/L) 67 Hematology CBC w Diff NO MAN DIFF REQ NO MAN DIFF REQ WBC (4.8 - 10.8 /CUMM) 21.2 H 14.8 H RBC (4.20 - 5.40 /CUMM) 4.43 4.31 Hgb (12.0 - 16.0 G/DL) 13.2 12.9 Hct (37 - 47 %) 38.7 37.2 MCV (81.0 - 99.0 FL) 87.4 86.3 MCH (27.0 - 31.0 PG) 29.9 30.0 MCHC (33.0 - 37.0 G/DL) 34.2 34.8 RDW (11.5 - 14.5 %) 14.0 14.3 Plt Count (130 - 400 /CUMM) 343 353 MPV (7.4 - 10.4 FL) 8.0 7.6 Gran % (42.2 - 75.2 %) 79.5 H 82.7 H Lymphocytes % (20.5 - 51.1 %) 10.6 L 7.9 L Monocytes % (1.7 - 9.3 %) 9.7 H 9.1 Eosinophils % (0 - 5 %) 0 0 Basophils % (0.0 - 2.0 %) 0.2 0.3 Absolute Granulocytes (1.4 - 6.5 /CUMM) 16.8 H 12.2 H Absolute Lymphocytes (1.2 - 3.4 /CUMM) 2.2 1.2 Absolute Monocytes (0.10 - 0.60 /CUMM) 2.1 H 1.3 H Absolute Eosinophils (0.0 - 0.7 /CUMM) 0 0 Absolute Basophils (0.0 - 0.2 /CUMM) 0 0 Recent Imaging Studies: HIDA scan 07/07/2018: Pending Assessment/Plan Assessment/Plan This is a 57-year-old female with past medical history significant for hypertension, hypercholesterolemia, factor V, coronary artery disease with stents who was admitted to the medical service with UTI and pyelonephritis as well as a non-ST elevated [place] who was also found to have cholelithiasis with biliary colic questionable early cholangitis Continue antibiotics Trend white count and fever Continue n.p.o. status until clinical improvement HIDA scan Percutaneous cholecystostomy tube placement by IR if HIDA scan is positive Core Measures Venous Thromboembolism VTE Risk Factors Age>40 No Mechanical VTE Prophylaxis d/t N/A MechProphylax Ordered No VTE Pharm Prophylaxis d/t NA PharmProphylax ordered
[2018-07-07 08:00] VITALS: BP 104/64
[2018-07-07 08:52] LABS: PTT 67 SEC (25-37)
[2018-07-07 11:27] LABS: PT 15.6 SEC (9.4-12.5)
[2018-07-07 12:00] VITALS: BP 104/62
--- NOTE | 2018-07-07 13:46 | PN- Cardiology ---
Subjective Subjective: The patient complains of abdominal discomfort. No chest pain. No palpitations. No shortness of breath. No diaphoresis. Objective Vital Signs and I&Os Vital Signs Date Time Temp Pulse Resp B/P B/P Pulse O2 O2 Flow FiO2 Mean Ox Delivery Rate 07/07 0851 80 104/64 07/07 0850 80 104/64 07/07 0800 97.8 86 20 104/64 95 Room Air 07/07 0000 98.4 89 27 98/57 96 Room Air 07/07 0000 96 Room Air 07/06 2156 92 108/61 07/06 2000 96 Room Air 07/06 1600 94 Room Air Room Air 07/06 1600 97.6 109 18 100/60 94 Room Air Room Air 07/06 1431 97.6 Intake & Output 07/07 1600 07/07 0800 07/07 0000 07/06 1600 07/06 0800 07/06 0000 Intake Total 1328 395 0 700 Output Total 650 1050 Balance 678 -655 0 700 Intake, IV 1228 345 0 Intake, Oral 100 50 0 700 Number 0 0 0 Bowel Movements Output, Urine 650 1050 Patient 187 lb 188 lb Weight Weight Bed scale Measurement Method Physical Exam: Gen: NAD HEENT: normal Lungs: clear to auscultation, normal resp. effort Heart: RRR, S1, S2, no murmurs Abdomen: Soft, nontender, no masses Extremities: No clubbing, cyanosis, or edema. Neuro: Alert and oriented x 3, cranial nerves intact Current Medications: Current Medications Sig/Kalyani Start time Last Medication Dose Route Stop Time Status Admin Acetaminophen 650 MG Q6P PRN 07/04 2330 AC 07/07 PO 1248 Aspirin Buffered 81 MG DAILY 07/05 900 AC 07/07 PO 0851 Ceftriaxone Sodium 1,000 MG 07/05 AC 07/06 IV 2156 Cholecalciferol 4,000 IU DAILY 07/05 900 AC 07/07 PO 0850 Clopidogrel Bisulfate 75 MG DAILY 07/05 900 AC 07/07 PO 0850 Cyclobenzaprine HCl 5 MG QPM PRN 07/05 0215 AC PO Docusate Sodium 100 MG DAILY NEEDED PRN 07/07 0500 AC 07/07 PO 0851 Enoxaparin Sodium 40 MG DAILY 07/05 900 DC 07/06 SC 0908 Heparin Sodium 5,000 UNIT BOLUS ONE 07/07 0200 DC 07/07 (Porcine) IV 07/07 0201 0115 Heparin Sodium 0 .STK-MED ONE 07/07 0108 DC (Porcine) .ROUTE Heparin Sodium 25,000 UNIT Q24H 07/06 1745 AC 07/06 (Porcine) IV 1821 Sodium Chloride 500 ML Lisinopril 2.5 MG DAILY 07/05 0900 AC 07/07 PO 0850 Metoclopramide HCl 10 MG Q6P PRN 07/05 0400 AC 07/06 IV 0906 Metoprolol Tartrate 12.5 MG BID 07/05 0300 AC 07/07 PO 0851 Metronidazole 500 MG IQ8 07/06 1600 AC 07/07 N/A 1 UNIT IV 0834 Morphine Sulfate 2 MG Q6P PRN 07/04 2330 AC IV Oxycodone/ 2 TAB Q6P PRN 07/06 1130 AC Acetaminophen PO Oxycodone/ 1 TAB Q6P PRN 07/04 2330 AC Acetaminophen PO Pantoprazole Sodium 40 MG BID 07/06 1244 DC IV Potassium Chloride 0 .STK-MED ONE 07/07 0649 DC PO Potassium Chloride 40 MEQ ONCE ONE 07/07 0645 DC 07/07 PO 07/07 0646 0647 Potassium Chloride 10 MEQ ONCE ONE 07/07 0615 CAN IV 07/07 0616 Potassium Chloride 10 MEQ Q1H 07/07 0615 DC 07/07 IV 07/07 0716 0642 Sodium Chloride 1,000 ML Q8H 07/06 1200 AC 07/07 IV 0416 Results Last 48 Hrs of Labs/Mics: Laboratory Tests 07/07/18 0730: PT 15.6 H, INR 1.43 H, APTT 67 H 07/07/18 0428: Anion Gap 9, Estimated GFR > 60, Glucose 89, Calcium 8.2 L, Phosphorus 2.2 L, Magnesium 1.9, Total Bilirubin 0.5, AST 63 H, ALT 42, Troponin I 2.10 *H, Albumin 2.9 L, CBC w Diff NO MAN DIFF REQ, RBC 3.81 L, MCV 87.0, MCH 30.1, MCHC 34.6, RDW 13.8, MPV 7.8, Gran % 79.2 H, Lymphocytes % 11.9 L, Monocytes % 8.6, Eosinophils % 0.1, Basophils % 0.2, Absolute Granulocytes 12.1 H, Absolute Lymphocytes 1.8, Absolute Monocytes 1.3 H, Absolute Eosinophils 0, Absolute Basophils 0 07/07/18 0003: APTT 38 H 07/06/18 2105: Troponin I 2.82 *H 07/06/18 1533: Lactic Acid Cancelled 07/06/18 1515: Lactic Acid Cancelled 07/06/18 1455: Lactic Acid 2.0, Total Bilirubin 0.6, Direct Bilirubin 0.2, AST 34, ALT 31, Alkaline Phosphatase 80, Troponin I 2.75 *H, Total Protein 6.4, Albumin 3.4 L, CBC w Diff MAN DIFF ORDERED, RBC 4.05 L, MCV 87.2, MCH 30.4, MCHC 34.8, RDW 13.6, MPV 7.8, Gran % 89.5 H, Lymphocytes % 3.9 L, Monocytes % 6.6, Eosinophils % 0, Basophils % 0, Absolute Granulocytes 17.7 H, Segmented Neutrophils 81 H, Band Neutrophils 9 H, Absolute Lymphocytes 0.8 L, Lymphocytes 7 L, Monocytes 2, Absolute Monocytes 1.3 H, Absolute Eosinophils 0 , Absolute Basophils 0, Metamyelocytes 1, Platelet Estimate ADEQUATE, Normocytic RBCs VERIFIED, Normochromic RBCs VERIFIED 07/06/18 1236: Sodium Cancelled, Potassium Cancelled, Chloride Cancelled, Carbon Dioxide Cancelled, Anion Gap Cancelled, BUN Cancelled, Creatinine Cancelled, BUN/ Creatinine Ratio Cancelled, Total Bilirubin Cancelled, Direct Bilirubin Cancelled, AST Cancelled, ALT Cancelled, Alkaline Phosphatase Cancelled, Total Protein Cancelled, Albumin Cancelled 07/06/18 1215: Lactic Acid Cancelled, Phosphorus Cancelled, Magnesium Cancelled, Troponin I Cancelled 07/06/18 1115: CBC w Diff NO MAN DIFF REQ, RBC 4.08 L, MCV 86.7, MCH 29.9, MCHC 34.4, RDW 13.9 , MPV 7.9, Gran % 80.4 H, Lymphocytes % 10.2 L, Monocytes % 9.4 H, Eosinophils % 0, Basophils % 0, Absolute Granulocytes 15.5 H, Absolute Lymphocytes 2.0, Absolute Monocytes 1.8 H, Absolute Eosinophils 0, Absolute Basophils 0 07/06/18 1015: CBC w Diff Cancelled, WBC Cancelled, RBC Cancelled, Hgb Cancelled, Hct Cancelled , MCV Cancelled, MCH Cancelled, MCHC Cancelled, RDW Cancelled, Plt Count Cancelled, MPV Cancelled 07/06/18 0604: Anion Gap 15, Estimated GFR > 60, BUN/Creatinine Ratio 13.3, CBC w Diff NO MAN DIFF REQ, RBC 4.43, MCV 87.4, MCH 29.9, MCHC 34.2, RDW 14.0, MPV 8.0, Gran % 79.5 H, Lymphocytes % 10.6 L, Monocytes % 9.7 H, Eosinophils % 0, Basophils % 0.2, Absolute Granulocytes 16.8 H, Absolute Lymphocytes 2.2, Absolute Monocytes 2.1 H, Absolute Eosinophils 0, Absolute Basophils 0 Assessment/Plan Assessment/Plan Assessment: 1. Factor V Leiden mutation 2. CAD, status post CABG in January 2018 3. Urinary tract infection 4. Biliary colic with possible early cholangitis 5. Positive troponin, likely type II [place] or demand ischemia secondary to sepsis. Plan: * HIDA scan pending * Continue cardiac medications Continue telemetry? Yes
[2018-07-07 16:00] VITALS: BP 110/62
--- NOTE | 2018-07-07 17:03 | ULTRASOUND REPORT ---
PROCEDURES: 1. Limited sonogram of the right upper abdominal quadrant. 2. Placement of an 8.5 [place] locking all-purpose drainage catheter into the gallbladder. CLINICAL HISTORY: 57-year-old female with imaging findings consistent with acute cholecystitis. The patient is not a surgical candidate and therefore a cholecystostomy tube was requested. Unfortunately, the patient is on Plavix and aspirin. This was discussed in length with the patient and her primary team. The primary team felt that her deteriorating clinical status required urgent placement of today's cholecystostomy tube despite bleeding risks. The patient was in agreement. This was documented in the patient's medical record. INTERVENTIONAL RADIOLOGIST: Kevin Mayberry M.D. SEDATION: Intravenous conscious sedation was performed with full clinical nurse monitoring. An independent third-green party monitor nurse was utilized for full clinical nurse monitoring. The total sedation time was 10 minutes. A total of 0.5 mg of Versed and 25 mcg of fentanyl was utilized. 1% lidocaine was also used for local anesthetic. COMPLICATIONS: None ESTIMATED BLOOD LOSS: < 5 mL SPECIMENS: Culture CONSENT: Informed consent was obtained from the patient prior to the procedure. During this process, the procedure and potential alternatives were explained along with the intended outcome and benefits. The risks of the procedure, including the possibility of an unsuccessful procedure as well as the risk of not doing the procedure were discussed. The patient was given the opportunity to ask any questions regarding the procedure and appeared competent to make medical decisions. A signed consent form which documents this discussion was placed in the medical record. TECHNIQUE/FINDINGS: Appropriate pre-procedure medical history and imaging studies were reviewed. The patient was brought to the procedure room and placed in the supine position. A time out was performed. Prior to prepping the patient, a limited sonogram of the right upper quadrant was performed to localize the gallbladder and chose an appropriate access. The right upper abdomen was then prepped and draped in usual sterile fashion. The skin and subcutaneous tissues were anesthetized with lidocaine. Under direct ultrasound guidance, an 8.5 [place] locking all-purpose drainage catheter was advanced trocar style into the gallbladder. The drainage catheter was then advanced off of the metal stylette into the gallbladder. The metal stylette was removed and the distal pigtail formed. Ultrasound imaging confirmed optimal positioning of the drainage catheter. Approximately 10 mL's of cloudy but fairly clear bile was aspirated out of the gallbladder. The catheter was then attached to a drainage bag via gravity drainage. The catheter was secured utilizing a single silk suture and StatLock device. A sterile dressing was placed. FINDINGS: 1. Distended gallbladder on ultrasound, filled with echogenic bile and gallstones. Gallbladder wall thickening was present. 2. Placement of properly positioned 8.5 [place] all-purpose drainage catheter using ultrasound guidance. IMPRESSION: Successful placement of 8.5 [place] percutaneous cholecystostomy drainage catheter. PLAN: -The patient was stable after the procedure and was transferred to the floor. -The tube should be open to external gravity drainage via drainage bag. -The drain needs to remain in place for at least 6 weeks to give time for the tract to mature. -The tube can be flushed with 10 mL normal saline twice daily if necessary.
[2018-07-07 23:08] LABS: PTT 38 SEC (25-37)
[2018-07-08] VITALS: BP 112/60
[2018-07-08 06:16] LABS: ABSOLUTE BASOPHIL COUNT 0 /CUMM (0.0-0.2); ABSOLUTE EOSINOPHIL COUNT 0.1 /CUMM (0.0-0.7); ABSOLUTE GRANULOCYTE CT 8.1 /CUMM (1.4-6.5); ABSOLUTE LYMPH COUNT 1.5 /CUMM (1.2-3.4); ABSOLUTE MONOCYTE COUNT 0.9 /CUMM (0.10-0.60); BASOPHIL % 0.3 % (0.0-2.0); EOSINOPHIL % 0.5 % (0-5); GRANULOCYTE % 76.8 % (42.2-75.2); HEMATOCRIT 31.1 % (37-47); MEAN CORPUSCULAR HGB 29.9 PG (27.0-31.0); MEAN CORPUSCULAR VOLUME 87.8 FL (81.0-99.0); MEAN PLATELET VOLUME 7.7 FL (7.4-10.4); PLATELET COUNT 296 /CUMM (130-400); RBC DISTRIBUTION WIDTH 13.7 % (11.5-14.5); RED BLOOD CELL CT 3.54 /CUMM (4.20-5.40); WHITE BLOOD CELL COUNT 10.5 /CUMM (4.8-10.8)
[2018-07-08 06:24] LABS: PTT 64 SEC (25-37)
--- NOTE | 2018-07-08 06:36 | PN- Resident CRCU ---
See Addendum Subjective HPI/CRCU Issues: Acute Cholecytitis Elevated Troponins, on Heparin Drip Factor 5 Leiden (heterozygous) Deficiency 24 Hour Events: Went for percutaneous cholecystostomy tube yesterday, no complications during procedure. Restarted on heparin drip. Vitally stable overnight. States she feels "so much better" today. States that yesterday was "a little rough" in terms of pain post procedure. States that the urinary symptoms have resolved completely overnight. States that she does have some abdominal pain when breathing in, but is been controlled well with pain medication. States that she does not feel any fevers overnight, states that she does not feel clammy anymore. Denies chest pain. Objective Vital Signs & I&O Last 8 Hrs of Vitals and I&O: Vitally stable Exam General Appearance: well developed/nourished, no apparent distress, alert, awake , comfortable Head: atraumatic Respiratory: normal breath sounds, lungs clear Cardiovascular: regular rate/rhythm Gastrointestinal: soft, RUQ tenderness, drain in place, dressing c/d/i draining small amounts of serosanguinous fluid Extremities: normal inspection, no edema Cranial Nerves: normal hearing, normal speech Skin: intact Skin Temp/Moisture Exam: Warm/Dry Sepsis Skin Exam (color): Normal for Ethnicity Current Medications: Current Medications Sig/Kalyani Start time Last Medication Dose Route Stop Time Status Admin Acetaminophen 0 .STK-MED ONE 07/08 0346 DC PO Acetaminophen 650 MG Q6P PRN 07/04 2330 AC 07/08 PO 0345 Aspirin Buffered 81 MG DAILY 07/05 09 AC 07/08 PO 0754 Ceftriaxone Sodium 1,000 MG 2100 07/05 2100 AC 07/07 IV 2057 Cholecalciferol 4,000 IU DAILY 07/05 09 AC 07/08 PO 0754 Clopidogrel Bisulfate 75 MG DAILY 07/05 09 AC 07/08 PO 0754 Cyclobenzaprine HCl 5 MG QPM PRN 07/05 0215 AC PO Docusate Sodium 100 MG DAILY NEEDED PRN 07/07 0500 AC 07/07 PO 0851 Fentanyl Citrate 0 .STK-MED ONE 07/07 1505 DC .ROUTE Heparin Sodium 0 .STK-MED ONE 07/07 2345 DC (Porcine) .ROUTE Heparin Sodium 25,000 UNIT Q24H 07/06 1745 AC 07/07 (Porcine) IV 1805 Sodium Chloride 500 ML Hydromorphone HCl 0 .STK-MED ONE 07/07 1804 DC PO Hydromorphone HCl 2 MG Q4P PRN 07/07 1800 AC 07/07 PO 1805 Lisinopril 2.5 MG DAILY 07/05 0900 AC 07/08 PO 0754 Metoclopramide HCl 10 MG Q6P PRN 07/05 0400 AC 07/07 IV 1805 Metoprolol Tartrate 12.5 MG BID 07/05 0300 AC 07/08 PO 0754 Metronidazole 500 MG IQ8 07/06 1600 AC 07/08 N/A 1 UNIT IV 0753 Midazolam HCl 0 .STK-MED ONE 07/07 1505 DC .ROUTE Morphine Sulfate 2 MG Q6P PRN 07/04 2330 DC IV Oxycodone/ 2 TAB Q6P PRN 07/06 1130 AC Acetaminophen PO Oxycodone/ 1 TAB Q6P PRN 07/04 2330 DC Acetaminophen PO Potassium Chloride 40 MEQ ONCE ONE 07/08 1800 AC PO 07/08 1801 Potassium Chloride 40 MEQ ONCE ONE 07/08 0715 DC 07/08 PO 07/08 0716 0725 Potassium Chloride 0 .STK-MED ONE 07/08 0710 DC PO Sodium Chloride 1,000 ML Q8H 07/06 1200 AC 07/08 IV 0226 Impression/Plan Impression/Problem List Impression: Ms. Grewal is a 57-year-old female with a past medical history of NM s/p PCI and stent in 2011 and then in 2018 x2 (LAD and LCx at [facility]) and CABG (last in January 16 2018, LAD, Marginal, Diagonal branch at [facility]), hyperlipidemia and Factor V Leiden (heterozygous) mutation presented to the ED for evaluation of abdominal pain that started on 07/04/2018. She was found to have urinary tract infection, E. coli, pansensitive, and has been on ceftriaxone for it. She was also found to have cholelithiasis with evidence of cholecystitis on CAT scan on 07/06/18. On the morning of July 06, she had low-grade fever 100.7 as well as leukocytosis, which was confirmed on repeat CBC, looked poor on clinical exam. ICU was consulted by general medicine team for further management. CTA was negative for pulmonary embolism, lactic was 2, troponins were elevated to 2.75 - -> 2.82; trending downwards at 2.10 yesterday. Went for perc cholecystostomy tube yesterday, POD#1. She was transferred to ICU due to: Tachycardia 2/2 sepsis of unknown origin, poor clinical picture. She is now a TELE HOLD. Her current problems are: Leukocytosis (resolved), Acute Cholecystitis s/p perc cholecystostomy tube, NSTEMI likely demand ischemia #Respiratory - stable, improved -Desaturated yesterday to 88%. Currently on RA with good saturations -CTA negative for acute pulmonary process/PE -Was On lovenox for DVT ppx, currently on heparin drip. Will be stopped for perc tube today. #Infectious disease - Acute cholecystitis going for perc tube today; UTI ( resolving) -Leukocytosis 21->19->19->15.3->10.5 on this AM CBC. Afebrile overnight, but is clammy and complained of chills. -Abx broadened, flagyl started yesterday. On Ceftriaxone, day #5, flagyl day #3 -Lactate neg -On NS, 125cc/hour -UA on admission had leuk esterase, bacteria, previously grew E.coli pansensitive back in February 2018 -CT A/P shows acute cholecystitis. Went for IR-guided percutaneous tube, fluid sent for micro which is currently growing scant G-negative rods. -Appreciate surgical and IR input on this case. #Cardiovascular/circulation -NSR overnight, rate 83-98. Has had afib in the past. 2 beat PVC in the AM. -Significant cardiac history for NM in 2011, 2017, 3-vessel CABG (LAD, Marginal, Diagonal branch) and 2x stents in January of 2018 at [facility] (LAD, LCx). -Records obtained via EMR from [facility]. *Echo in 04/2018 shows: * Normal left ventricular size with overall normal systolic ejection function ejection fraction 50% mild hypokinesis of the apical inferior wall * Mild to moderate mitral regurg * Moderate tricuspid regurg with normal right heart pressures * Normal right ventricular cavity size and systolic function * Mildly dilated left atrium -Cardiology recs appreciated, on heparin drip which was restarted s/p perc tube; troponins trending downwards. EKG without ST elevation; underwent ECHO yesterday pending read -Blood pressures 104-112 systolic over 60-62 diastolic. Is on NS 125cc/hour. #Hematologic - stable -History of heterozygous factor V leiden -H/H 10.6/31.1 , previously 11.5/33.2, 12.3/35.3, platelets 296 (increased from yesterdays 280) -Will f/u CBC in AM #Metabolic - elevated AST; hypophosphatemia -Lactate 2.0 -LFT - AST/ALT 41/34 trended downwards; Will continue to monitor with ICU bundle in AM -This AMs chemistry showed potassium of 3.3; given 40mEq oral K in the AM and pending 40mEq oral K in PM. -Phosphorus normalized. #Alimentary - stable -On Clear liquid diet, tolerating well. Will ADAT #Neurological - intact, stable #Nephro - stable -BUN/Cr unremarkable -Urinary symptoms resolved. No hydro noted DVT prophylaxis - ALPS + Pharmacological IV access - Peripheral Full code Problem List: 1. Acute cholecystitis due to biliary calculus 2. Coronary artery disease 3. Urinary tract infection Pain Ratin Tomorrow's Labs & Rationales: CBC ICU bundle Plan DVT/Prophylaxis: mechanical, pharmacological
[2018-07-08 08:00] VITALS: BP 120/70
--- NOTE | 2018-07-08 10:04 | PN- Cardiology ---
Subjective Subjective: Patient is sitting in the bedside chair. No new cardiac symptoms or complaints. Objective Vital Signs and I&Os Vital Signs Date Time Temp Pulse Resp B/P B/P Pulse O2 O2 Flow FiO2 Mean Ox Delivery Rate 07/08 800 97.3 78 18 120/70 97 Room Air 07/08 0000 94 Room Air 07/08 0000 97.8 82 20 112/60 94 Room Air 07/07 2102 98 112/60 07/07 1600 97.7 83 27 110/62 97 Room Air 07/07 1200 97.6 92 31 104/62 95 Room Air Intake & Output 07/08 1600 07/08 0807/08 0000 07/07 1600 07/07 0800 07/07 0000 Intake Total 1349 2453 570 1328 395 Output Total 850 1240 903 739 2275 Balance 499 1213 70 678 -655 Intake, IV 1249 8224 205 6513 345 Intake, Oral 100 1320 60 100 50 Number 1 1 0 0 Bowel Movements Output, 50 140 Drainage Output, Urine 800 1100 234 238 0206 Patient 187 lb 188 lb Weight Weight Bed scale Measurement Method Physical Exam: General Appearance Alert, Oriented X3, Cooperative, overweight, no Acute Distress Skin normal HEENT Atraumatic, PERRLA, EOMI, Mucous Membr. moist/pink Neck Supple, JVP normal, carotids appear normal bilaterally. No audible bruits Cardiovascular Regular Rate, Normal S1, Normal S2, No audible murmurs Lungs Clear to Auscultation and percussion bilaterally Abdomen Normal Bowel Sounds, Soft, No visible lesions. Soft, nondistended. Tender to deep palpation on particularly in RUQ. Negative valentine's. Positive CVA tenderness on the right. Extremities No Clubbing, No Edema Current Medications: Current Medications Sig/Kalyani Start time Last Medication Dose Route Stop Time Status Admin Acetaminophen 0 .STK-MED ONE 07/08 0346 DC PO Acetaminophen 650 MG Q6P PRN 07/04 2330 AC 07/08 PO 934 Aspirin Buffered 81 MG DAILY 07/05 900 AC 07/08 PO 075 Ceftriaxone Sodium 1,000 MG 07/05 AC 07/07 IV 205 Cholecalciferol 4,000 IU DAILY 07/05 900 AC 07/08 PO 075 Clopidogrel Bisulfate 75 MG DAILY 07/05 900 AC 07/08 PO 075 Cyclobenzaprine HCl 5 MG QPM PRN 07/05 0215 AC PO Docusate Sodium 100 MG DAILY NEEDED PRN 07/07 0500 AC 07/07 PO 0851 Fentanyl Citrate 0 .STK-MED ONE 07/07 1505 DC .ROUTE Heparin Sodium 0 .STK-MED ONE 07/07 2345 DC (Porcine) .ROUTE Heparin Sodium 25,000 UNIT Q24H 07/06 1745 AC 07/07 (Porcine) IV 1805 Sodium Chloride 500 ML Hydromorphone HCl 0 .STK-MED ONE 07/07 1804 DC PO Hydromorphone HCl 2 MG Q4P PRN 07/07 1800 AC 07/08 PO 0935 Lisinopril 2.5 MG DAILY 07/05 0900 AC 07/08 PO 0754 Metoclopramide HCl 10 MG Q6P PRN 07/05 0400 AC 07/07 IV 1805 Metoprolol Tartrate 12.5 MG BID 07/05 0300 AC 07/08 PO 0754 Metronidazole 500 MG IQ8 07/06 1600 AC 07/08 N/A 1 UNIT IV 0753 Midazolam HCl 0 .STK-MED ONE 07/07 1505 DC .ROUTE Morphine Sulfate 2 MG Q6P PRN 07/04 2330 DC IV Oxycodone/ 2 TAB Q6P PRN 07/06 1130 AC Acetaminophen PO Oxycodone/ 1 TAB Q6P PRN 07/04 2330 DC Acetaminophen PO Potassium Chloride 40 MEQ ONCE ONE 07/08 1800 AC PO 07/08 1801 Potassium Chloride 40 MEQ ONCE ONE 07/08 0715 DC 07/08 PO 07/08 0716 0725 Potassium Chloride 0 .STK-MED ONE 07/08 0710 DC PO Sodium Chloride 1,000 ML Q8H 07/06 1200 AC 07/08 IV 0226 Results Last 48 Hrs of Labs/Mics: Laboratory Tests 07/08/18 0530: Anion Gap 4 L, Estimated GFR > 60, Glucose 92, Calcium 7.3 L, Phosphorus 2.8, Magnesium 1.7, Total Bilirubin 0.5, AST 41 H, ALT 34, Albumin 2.4 L, APTT 64 H, CBC w Diff NO MAN DIFF REQ, RBC 3.54 L, MCV 87.8, MCH 29.9, MCHC 34.0, RDW 13.7, MPV 7.7, Gran % 76.8 H, Lymphocytes % 14.1 L, Monocytes % 8.3, Eosinophils % 0.5, Basophils % 0.3, Absolute Granulocytes 8.1 H, Absolute Lymphocytes 1.5, Absolute Monocytes 0.9 H, Absolute Eosinophils 0.1, Absolute Basophils 0 07/07/18 2213: APTT 38 H 07/07/18 0730: PT 15.6 H, INR 1.43 H, APTT 67 H 07/07/18 0428: Anion Gap 9, Estimated GFR > 60, Glucose 89, Calcium 8.2 L, Phosphorus 2.2 L, Magnesium 1.9, Total Bilirubin 0.5, AST 63 H, ALT 42, Troponin I 2.10 *H, Albumin 2.9 L, CBC w Diff NO MAN DIFF REQ, RBC 3.81 L, MCV 87.0, MCH 30.1, MCHC 34.6, RDW 13.8, MPV 7.8, Gran % 79.2 H, Lymphocytes % 11.9 L, Monocytes % 8.6, Eosinophils % 0.1, Basophils % 0.2, Absolute Granulocytes 12.1 H, Absolute Lymphocytes 1.8, Absolute Monocytes 1.3 H, Absolute Eosinophils 0, Absolute Basophils 0 07/07/18 0003: APTT 38 H 07/06/18 2105: Troponin I 2.82 *H 07/06/18 1533: Lactic Acid Cancelled 07/06/18 1515: Lactic Acid Cancelled 07/06/18 1455: Lactic Acid 2.0, Total Bilirubin 0.6, Direct Bilirubin 0.2, AST 34, ALT 31, Alkaline Phosphatase 80, Troponin I 2.75 *H, Total Protein 6.4, Albumin 3.4 L, CBC w Diff MAN DIFF ORDERED, RBC 4.05 L, MCV 87.2, MCH 30.4, MCHC 34.8, RDW 13.6, MPV 7.8, Gran % 89.5 H, Lymphocytes % 3.9 L, Monocytes % 6.6, Eosinophils % 0, Basophils % 0, Absolute Granulocytes 17.7 H, Segmented Neutrophils 81 H, Band Neutrophils 9 H, Absolute Lymphocytes 0.8 L, Lymphocytes 7 L, Monocytes 2, Absolute Monocytes 1.3 H, Absolute Eosinophils 0 , Absolute Basophils 0, Metamyelocytes 1, Platelet Estimate ADEQUATE, Normocytic RBCs VERIFIED, Normochromic RBCs VERIFIED 07/06/18 1236: Sodium Cancelled, Potassium Cancelled, Chloride Cancelled, Carbon Dioxide Cancelled, Anion Gap Cancelled, BUN Cancelled, Creatinine Cancelled, BUN/ Creatinine Ratio Cancelled, Total Bilirubin Cancelled, Direct Bilirubin Cancelled, AST Cancelled, ALT Cancelled, Alkaline Phosphatase Cancelled, Total Protein Cancelled, Albumin Cancelled 07/06/18 1215: Lactic Acid Cancelled, Phosphorus Cancelled, Magnesium Cancelled, Troponin I Cancelled 07/06/18 1115: CBC w Diff NO MAN DIFF REQ, RBC 4.08 L, MCV 86.7, MCH 29.9, MCHC 34.4, RDW 13.9 , MPV 7.9, Gran % 80.4 H, Lymphocytes % 10.2 L, Monocytes % 9.4 H, Eosinophils % 0, Basophils % 0, Absolute Granulocytes 15.5 H, Absolute Lymphocytes 2.0, Absolute Monocytes 1.8 H, Absolute Eosinophils 0, Absolute Basophils 0 07/06/18 1015: CBC w Diff Cancelled, WBC Cancelled, RBC Cancelled, Hgb Cancelled, Hct Cancelled , MCV Cancelled, MCH Cancelled, MCHC Cancelled, RDW Cancelled, Plt Count Cancelled, MPV Cancelled Microbiology 07/06 1500 UPPER RESP: Surveillance Culture - COMP Assessment/Plan Assessment/Plan Assessment: 1. Factor V Leiden mutation 2. CAD, status post CABG in January 2018 3. Urinary tract infection 4. Biliary colic with possible early cholangitis 5. Positive troponin, likely type II GA or demand ischemia secondary to sepsis. Plan: * Clinically stable from cardiac perspective. Cholecystostomy tube in place. * Continue cardiac medications; outpatient follow-up with Dr. Odom Continue telemetry? Yes
--- NOTE | 2018-07-08 14:07 | ECHOCARDIOGRAM REPORT ---
ISABEL WARD Age: 57 : 1960 Gender: F Exam Date: 07/07/2018 10:14 Exam Location: [facility] Ht (in): 64 Wt (lb): 187 BSA: 1.99 BP: 103 / 63 Ordering Physician: Ishmael Roque MD Referring Physician: Raymond Longoria MD Technologist: Zak Quiroz [facility] Room Number: 111-1 Indications: myocardial ischemia Rhythm: Sinus Technical Quality: Technically difficult study FINDINGS Left Ventricle Normal size left ventricle. Normal left ventricular wall thickness. Normal left ventricular ejection fraction visually estimated at 60%. Normal left ventricular wall motion. Right Ventricle Normal right ventricular size and function. Right Atrium Normal right atrial size. Left Atrium Mild left atrial dilatation. Mitral Valve Mild mitral regurgitation. Mild mitral annular calcification. Aortic Valve Mild aortic valve calcification. No aortic stenosis. No aortic regurgitation. Tricuspid Valve Moderate tricuspid regurgitation. No evidence of pulmonary hypertension. Pulmonic Valve Pulmonic valve not well visualized, grossly normal. Trace pulmonic regurgitation. Pericardium No pericardial effusion. Great Vessels Normal size aortic root. CONCLUSIONS Normal size left ventricle. Normal left ventricular wall thickness. Normal left ventricular ejection fraction visually estimated at 60%. Mild left atrial dilatation. Mild mitral regurgitation. Mild mitral annular calcification. Mild mitral regurgitation. Mild aortic valve calcification. Moderate tricuspid regurgitation. No evidence of pulmonary hypertension. Raymond Longoria M.D. (Electronically Signed) Final Date: 08 July 2018 14:03 MEASUREMENTS (Male / Female) Normal Values 2D ECHO LV Diastolic Diameter PLAX 4.1 cm 4.2 - 5.9 / 3.9 - 5.3 cm LV Systolic Diameter PLAX 2.8 cm 2.1 - 4.0 cm LV Fractional Shortening PLAX 31.7 % 25 - 46 % LV Ejection Fraction 2D Teich 60.2 % IVS Diastolic Thickness 1.0 cm LVPW Diastolic Thickness 1.0 cm LV Relative Wall Thickness 0.5 RV Internal Dim ED PLAX 3.7 cm 1.9 - 3.8 cm LVOT Diameter 1.9 cm Aortic Root Diameter 2.8 cm LA Systolic Diameter LX 4.5 cm 3.0 - 4.0 / 2.7 - 3.8 cm LA Volume 58.0 cm 18 - 58 / 22 - 52 cm Ascending Aorta Diameter 3.0 cm DOPPLER AV Peak Velocity 145.0 cm/s AV Peak Gradient 8.4 mmHg AV Mean Velocity 107.0 cm/s AV Mean Gradient 5.0 mmHg AV Velocity Time Integral 29.7 cm LVOT Peak Velocity 93.2 cm/s LVOT Peak Gradient 3.5 mmHg LVOT Mean Velocity 64.1 cm/s LVOT Mean Gradient 2.0 mmHg LVOT Velocity Time Integral 20.8 cm LVOT Stroke Volume 59.0 cm AV Area Cont Eq vti 2.0 cm AV Area Cont Eq pk 1.8 cm MV Peak Velocity 92.5 cm/s MV Peak Gradient 3.4 mmHg MV Mean Velocity 58.6 cm/s MV Mean Gradient 2.0 mmHg Mitral E Point Velocity 85.9 cm/s Mitral A Point Velocity 82.4 cm/s Mitral E to A Ratio 1.0 MV PHT Velocity 104.0 cm/s MV Deceleration Beltrami 316.0 cm/s MV Pressure Half Time 98.7 ms MV Area PHT 2.2 cm MV Deceleration Time 278.0 ms TR Peak Velocity 293.0 cm/s TR Peak Gradient 34.3 mmHg Right Atrial Pressure 5.0 mmHg Pulmonary Artery Systolic Pressure 39.3 mmHg Right Ventricular Systolic Pressure 39.3 mmHg PV Peak Velocity 96.5 cm/s PV Peak Gradient 3.7 mmHg PV Mean Velocity 61.7 cm/s PV Mean Gradient 2.0 mmHg PV Velocity Time Integral 18.4 cm LV E' Lateral Velocity 14.1 cm/s Mitral E to LV E' Lateral Ratio 6.1 LV E' Septal Velocity 6.0 cm/s Mitral E to LV E' Septal Ratio 14.2
[2018-07-08 16:00] VITALS: BP 108/60
[2018-07-08 21:03] LABS: PTT 111 SEC (25-37)
[2018-07-09] VITALS: BP 110/70
[2018-07-09 04:57] LABS: ABSOLUTE BASOPHIL COUNT 0 /CUMM (0.0-0.2); ABSOLUTE EOSINOPHIL COUNT 0.1 /CUMM (0.0-0.7); ABSOLUTE GRANULOCYTE CT 5.2 /CUMM (1.4-6.5); ABSOLUTE LYMPH COUNT 2.3 /CUMM (1.2-3.4); ABSOLUTE MONOCYTE COUNT 0.9 /CUMM (0.10-0.60); BASOPHIL % 0.3 % (0.0-2.0); EOSINOPHIL % 1.6 % (0-5); GRANULOCYTE % 60.9 % (42.2-75.2); HEMATOCRIT 30.7 % (37-47); MEAN CORPUSCULAR HGB 30.5 PG (27.0-31.0); MEAN CORPUSCULAR HGB CONC 35.1 G/DL (33.0-37.0); MEAN CORPUSCULAR VOLUME 86.9 FL (81.0-99.0); MEAN PLATELET VOLUME 7.9 FL (7.4-10.4); PLATELET COUNT 339 /CUMM (130-400); RBC DISTRIBUTION WIDTH 14.1 % (11.5-14.5); RED BLOOD CELL CT 3.53 /CUMM (4.20-5.40); WHITE BLOOD CELL COUNT 8.6 /CUMM (4.8-10.8)
[2018-07-09 05:06] LABS: PTT 43 SEC (25-37)
--- NOTE | 2018-07-09 07:32 | PN- Resident CRCU ---
Eyad Barrientos 07/09/18 0731: Subjective HPI/CRCU Issues: Acute Calculous Cholecystitis s/p Cholecystostomy Tube UTI Type II MO 2/2 Demand Ischemia 24 Hour Events: No acute events overnight. Patient states pain is improved, denies any urinary symptoms or abdominal symptoms at this time. Patient states that she does feel somewhat anxious, but did not have any palpitations or chest pain. Pt denies other complaints. Denies fevers/chills/night sweats/chest pain/urinary symptoms/ lower extremity edema Objective Vital Signs & I&O Last 8 Hrs of Vitals and I&O: Intake & Output 07/09 08 Intake Total 309 Output Total 200 Balance 109 Intake, IV 189 Intake, Oral 120 Number 0 Bowel Movements Output, Urine 200 Exam General Appearance: well developed/nourished, no apparent distress, alert, awake , comfortable Head: atraumatic Neck: normal inspection Respiratory: normal breath sounds, lungs clear Cardiovascular: regular rate/rhythm Gastrointestinal: soft, non-tender, perc fernando tube in place draining serosanguinous fluid Extremities: normal inspection, no edema Cranial Nerves: normal hearing, normal speech Skin: intact Skin Temp/Moisture Exam: Warm/Dry Current Medications: Current Medications Sig/Kalyani Start time Last Medication Dose Route Stop Time Status Admin Acetaminophen 650 MG Q6P PRN 07/04 2330 AC 07/09 PO 0853 Aspirin Buffered 81 MG DAILY 07/05 09 AC 07/09 PO 0851 Ceftriaxone Sodium 1,000 MG 2100 07/05 2100 AC 07/08 IV 2057 Cholecalciferol 4,000 IU DAILY 07/05 09 AC 07/09 PO 0851 Clopidogrel Bisulfate 75 MG DAILY 07/05 09 AC 07/09 PO 0851 Cyclobenzaprine HCl 5 MG QPM PRN 07/05 0215 AC PO Docusate Sodium 100 MG DAILY NEEDED PRN 07/07 0500 AC 07/07 PO 0851 Heparin Sodium 0 .STK-MED ONE 07/09 0532 DC (Porcine) .ROUTE Heparin Sodium 5,000 UNIT ONCE ONE 07/09 05 DC 07/09 (Porcine) IV 07/09 Heparin Sodium 25,000 UNIT Q24H 07/06 1745 AC 07/09 (Porcine) IV 09 Sodium Chloride 500 ML Hydromorphone HCl 2 MG Q4P PRN 07/07 1800 AC 07/08 PO 2239 Lisinopril 2.5 MG DAILY 07/05 0900 AC 07/09 PO 0851 Metoclopramide HCl 0 .STK-MED ONE 07/08 1245 DC .ROUTE Metoclopramide HCl 10 MG Q6P PRN 07/05 0400 AC 07/08 IV 1244 Metoprolol Tartrate 12.5 MG BID 07/05 0300 AC 07/09 PO 0851 Metronidazole 500 MG IQ8 07/06 1600 AC 07/09 N/A 1 UNIT IV 0846 Oxycodone/ 2 TAB Q6P PRN 07/06 1130 AC Acetaminophen PO Potassium Chloride 40 MEQ ONCE ONE 07/08 1800 DC 07/08 PO 07/08 1801 1735 Sodium Chloride 1,000 ML Q8H 07/06 1200 DC 07/08 IV 0226 Impression/Plan Impression/Problem List Impression: Ms. Grewal is a 57-year-old female with a past medical history of MO s/p PCI and stent in 2011 and then in 2018 x2 (LAD and LCx at [facility]) and CABG (last in January 16 2018, LAD, Marginal, Diagonal branch at [facility]), hyperlipidemia and Factor V Leiden (heterozygous) mutation presented to the ED for evaluation of abdominal pain that started on 07/04/2018. She was found to have urinary tract infection, E. coli, pansensitive, and has been on ceftriaxone for it. She was also found to have cholelithiasis with evidence of cholecystitis on CAT scan on 07/06/18. On the morning of July 06, she had low-grade fever 100.7 as well as leukocytosis, which was confirmed on repeat CBC, looked poor on clinical exam. ICU was consulted by general medicine team for further management. CTA was negative for pulmonary embolism, lactic was 2, troponins were elevated to 2.75 - -> 2.82; trending downwards at 2.10, now on heparin drip. Went for perc cholecystostomy tube yesterday, POD#2. She was transferred to ICU due to: Tachycardia 2/2 sepsis of unknown origin, poor clinical picture. She is now a TELE HOLD. Her current problems are: Leukocytosis (resolved), Acute Cholecystitis s/p perc cholecystostomy tube, NSTEMI likely demand ischemia #Respiratory - stable, improved -Currently on RA with good saturations -CTA negative for acute pulmonary process/PE -Was On lovenox for DVT ppx, currently on heparin drip. #Infectious disease - Acute cholecystitis s/p percutaneous cholecystostomy tube; UTI (resolving) -Leukocytosis 21->19->19->15.3->10.5->8.6 on this AM CBC. Afebrile overnight, did not complain of clamminess or chills. -On Ceftriaxone, day #6/14, flagyl day #4; will convert to PO medication Cipro 500mg BID for home -Lactate neg -Off fluids -UA on admission had leuk esterase, bacteria, previously grew E.coli pansensitive back in February 2018 -CT A/P shows acute cholecystitis. Went for IR-guided percutaneous tube, fluid sent for micro which is currently growing scant G-negative rods with ID and susceptibility to follow -Appreciate surgical and IR input on this case. Pt to follow up with surgery in 2 weeks outpatient. #Cardiovascular/circulation - stable -NSR overnight, rate 83-98. Has had afib in the past. 2 beat PVC in the AM. -Blood pressures 108-114/60-70. -Significant cardiac history for MO in 2011, 2017, 3-vessel CABG (LAD, Marginal, Diagonal branch) and 2x stents in January of 2018 at [facility] (LAD, LCx). -Records obtained via EMR from [facility]. *Echo in 04/2018 shows: * Normal left ventricular size with overall normal systolic ejection function ejection fraction 50% mild hypokinesis of the apical inferior wall * Mild to moderate mitral regurg * Moderate tricuspid regurg with normal right heart pressures * Normal right ventricular cavity size and systolic function * Mildly dilated left atrium -Cardiology recs appreciated, on heparin drip which was restarted s/p perc tube; troponins trending downwards. EKG without ST elevation; Cardio says heparin drip can be d/c and will need to follow up outpatient with Dr Odom for stress test. Underwent ECHO yesterday with results: LVEF at 60%, Mild left atrial dilatation. Mild mitral regurgitation. Mild mitral annular calcification. Mild mitral regurgitation. Mild aortic valve calcification. Moderate tricuspid regurgitation. No evidence of pulmonary hypertension. #Hematologic - stable -History of heterozygous factor V leiden -H/H 10.8/30.7, previously 0.6/31.1, 11.5/33.2, 12.3/35.3, platelets 296 ( increased from yesterdays 280) #Metabolic - elevated AST (resolved); hypophosphatemia (resolved) , stable -Lactate 2.0 -LFT - AST/ALT /35 now normal; -Phosphorus normalized. #Alimentary - stable -Tolerating regular diet #Neurological - intact, stable #Nephro - stable -BUN/Cr unremarkable -Urinary symptoms resolved. No hydro noted DVT prophylaxis - ALPS + Pharmacological IV access - Peripheral Full code She can likely be discharged today or tomorrow (pending sensitivities) Problem List: 1. Urinary tract infection 2. Acute cholecystitis due to biliary calculus Pain Ratin Tomorrow's Labs & Rationales: na Plan DVT/Prophylaxis: mechanical, pharmacological Vinay LUNA,Robbie Maynard 07/09/18 0922: Attending MD Review Statement Attending Sign Off Attending Cosign Statement: I have: examined this patient, reviewed [facility] EMR data, personally reviewd images, discussd w/resident/PA/MILL TENDER WARM UP, agreed w/resident/PA/MILL TENDER WARM UP. Reason for Cont Hospitalizatn: Acute NSTEMI
[2018-07-09 11:04] LABS: PTT 87 SEC (25-37)
--- NOTE | 2018-07-09 11:11 | Patient Discharge Instructions ---
Discharge Instructions General Discharge Information You were seen/treated for: UTI Acute Cholecystitis Demand Ischemia You had these procedures: CTA Percutaneous Cholecystostomy Tube Watch for these problems: - Please watch for these problems: Fever, Chills, Nausea, Vomiting, Shortness of Breath, Productive Cough, Chest Pain/Discomfort, Abdominal Pain, Active Bleeding or Bloody urine/stool. Special Instructions: - Please follow up with your plasma table operator Dr. Odom within 1-2 weeks of discharge. - Please follow up with Dr Murcia within 1-2 weeks of discharge - Please follow up with your primary care physician within 1-2 weeks of discharge. Inform your primary care physician of this admission to [facility]. - Continue your current medications per discharge instructions. - Please watch for these problems: Fever, Chills, Nausea, Vomiting, Shortness of Breath, Productive Cough, Chest Pain/Discomfort, Abdominal Pain, Active Bleeding or Bloody urine/stool. Diet Continue normal diet: Yes Acute Coronary Syndrome Inclusion Criteria At DC or during hospital stay patient has or had the following: ACS DIAGNOSIS No Discharge Core Measures Meds if any: Prescribed or Continued at Discharge Meds if any: NOT Prescribed or Continued at Discharge Congestive Heart Failure Inclusion Criteria At DC or during hospital stay patient has or had the following: CHF DIAGNOSIS No Discharge Core Measures Meds if any: Prescribed or Continued at Discharge Meds if any: NOT Prescribed or Continued at Discharge Cerebrovascular accident Inclusion Criteria At DC or during hospital stay patient has or had the following: CVA/TIA Diagnosis No Discharge Core Measures Meds if any: Prescribed or Continued at Discharge Meds if any: NOT Prescribed or Continued at Discharge Venous thromboembolism Inclusion Criteria VTE Diagnosis No VTE Type NONE VTE Confirmed by (Test) NONE Discharge Core Measures - Per Current guidelines, there needs to be overlap - treatment for the first 5 days of Warfarin therapy. - If discharged on Warfarin prior to 5 days of - overlap therapy, the patient will need to be - assessed for post discharge needs including - *Post discharge parental anticoagulation - *Warfarin and/or parental anticoagulation education - *Follow up date to check INR post discharge At least 5 days overlap therapy as Inpatient No Meds if any: Prescribed or Continued at Discharge Note: Overlap Therapy is Warfarin and Anticoagulant Meds if any: NOT Prescribed or Continued at Discharge
--- NOTE | 2018-07-09 11:20 | Discharge Summary ---
Visit Information Visit Dates Admission Date: 07/04/18 Discharge Date: 07/09/18 Hospital Course Course Attending Physician: Robbie Mclean MD Primary Care Physician: Kathi LUNA,Ling Marshall Hospital Course: Ms. Grewal is a 57 y/o F with a PMH of factor V deficiency, multiple AZ s/p stent, CABG, latest in february on dual antiplt therapy and sciatica who comes in c /o worsening RUQ pain after being evaluated at a Urgent Care center. Pt states the pain started 4 days ago, was prescribed flexeril by her PCP linking it to her sciatica. At this point patient also c/o dysuria that improved with increased water intake, no antibiotics taken at that time. Pain is constant, 5/ 10 at the moment, 10/10 at its worst that started after eating a richter and egg sandwich, that progressively got worse; nonradiating and pulsating in nature, which did not alleviate with tylenol. There is no relation to PO intake. She did vomit once before coming to the ED, 3x while in the ED a nonbloody vomitus. She denies fever, chills, constipation, diarrhea, SOB, chest pain. She has had prior episodes of UTI. Of note, patient does have a surgical history with rectocele, cystocele repair in november. In the ED, labs showed noted leukocytosis and a UA indicative of an UTI. She is however afebrile. CT scan did show a large gallstone, though no evidence of acute inflammatory changes. She got a dose of ceftriaxone. Noted negative Solis 's and positive CVA tenderness on the right on physical examination, with reported N/V in multiple occasions. She was admitted to the [facility] floor for management of UTI on Ceftriaxione, and surgery was consulted for the gallstone. Surgery had decided no immediate operative intervention pending clearance from cardiology given recent AZ + Factor V + Plavix, would prefer outpatient lap fernando. They also recommended percutaneous cholecystostomy tube if patient worsened given leukocytosis. On the morning of the , she had increasing leukocytosis, low-grade fever, sinus tachycardia on EKG. Her CbC was repeated, with leukocytosis at 19. She went for a CT angiogram which showed no acute PE. We were consulted as patient' s clinical picture looked concerning, with PE on differential. The patient stated that morning she felt like she had a fever, which she was not too worried about as "I will just sweat it out". However, she said that she became concerned when she started having chills. She stated that she still had abdominal pain which is subsided somewhat, located mostly in the right upper quadrant. She denies any night sweats, chest pain, respiratory symptoms, diarrhea(although states that she did have one episode of diarrhea when she was admitted), joint pains, rashes, vomiting. She says that she feels like her bladder is still full. She states that subjectively she feels better today than the past 2 days that she was here. She also states that after her CABG this year in January, in cardiac rehab she was told that she had occasional ectopic beats. She states that she follows Dr. Odom who is her outpatient radio talk show host. Her antibiotics were broadened to flagyl and ceftriaxone, and she was placed on NS 125 cc/hour. Cardiology was consulted as she had positive troponins and she was placed on a heparin drip. On july 07, she went for a percutaneous cholecystostomy tube placed by IR, fluid was sent for culture. Her heparin was stopped preprocedure and was continued post procedure. She tolerated the procedure well. She continued her antibiotics and heparin drip. Her body fluid grew e. coli, pansensitive. She had no other acute events in ICU and was downgraded to telemetry level care. She did have minor transaminitis which had trended down by time of discharge. Her heparin drip was discontinued and surgery and cardiology cleared her for discharge. She was discharged home on July 09 after 6 days of ceftriaxone, 4 days of flagyl, with a prescription for Cipro 500mg BID to complete a 14 day course of antibiotics. She was to follow up with her outpatient radio talk show host Dr. Odom for a stress test, and to follow up with Dr. Murcia 1 week post discharge. Her percutaneous cholecystostomy tube will remain in place for 6 weeks at which time it will be removed. Surgery, she still very high risk candidate given Plavix and factor V [place], and so will need cardiology clearance before a laparoscopic cholecystectomy can be performed. She was given strict return precautions, verbalized understanding of treatment plan, and was discharged without incident. Allergies: Coded Allergies: Influenza Virus Vaccines (RASH, HIVES 06/22/16) pantoprazole (From PROTONIX) (Intermediate, Facial redness 07/06/18) Significant Procedures: CT A/P on 07/04/18 with contrast FINDINGS: LUNG BASES: The visualized lung bases are unremarkable. LIVER, GALLBLADDER, AND BILIARY TREE: The liver is normal in size, shape, and attenuation. No focal hepatic lesion or biliary ductal dilatation is present. There is a large gallstone. There are no CT findings to suggest acute cholecystitis. No biliary ductal dilatation. PANCREAS: Unremarkable. SPLEEN: Calcified splenic granulomas. ADRENAL GLANDS: Unremarkable. KIDNEYS AND URETERS: The kidneys are normal in size, shape, and attenuation. No hydronephrosis, hydroureter, or calculi seen. No perinephric stranding. BLADDER: Unremarkable. GASTROINTESTINAL TRACT: Marked diverticulosis of the descending and sigmoid colon. No focal inflammatory process or obstruction. ABDOMINAL WALL: No significant hernia is appreciated. LYMPH NODES: Normal. VASCULAR: Unremarkable. PELVIC VISCERA: The uterus is absent. OSSEOUS STRUCTURES: Unremarkable. IMPRESSION: No focal inflammatory process or obstruction. There is extensive sigmoid and descending colon diverticulosis. There is a large gallstone. No CT evidence of acute cholecystitis. CTA and CT Abd/Pelvis on July 06, 2018 FINDINGS: QUALITY OF STUDY/CONTRAST BOLUS: Satisfactory PULMONARY ARTERIES: No central or segmental pulmonary emboli. THORACIC AORTA: No aneurysm or dissection. LUNG: No focal consolidation, nodules or masses. There is multifocal mild bibasilar linear scar/subsegmental atelectasis. PLEURA: No significant pleural effusion or pneumothorax. MEDIASTINUM: Normal heart size. There has been a prior CABG procedure. No pericardial effusion. No hilar or mediastinal lymphadenopathy. No evidence of septal bowing or right heart strain. CHEST WALL/AXILLA: No axillary or internal mammary lymphadenopathy. OSSEOUS STRUCTURES: There is multi-level moderate thoracic spondylosis. No acute or aggressive osseous abnormality is seen. IMPRESSION: 1. No pulmonary embolus or thoracic aortic aneurysm or dissection is seen. 2. No focal infiltrate is seen. There is no pleural effusion. 3. There is multifocal mild bibasilar linear scar/subsegmental atelectasis. VTE: negative EXAMINATION: CT ABDOMEN AND PELVIS WITH CONTRAST CLINICAL INFORMATION: Fever and sepsis. COMPARISON: CT the abdomen and pelvis dated 07/04/2018. TECHNIQUE: Multidetector volumetric imaging was performed of the abdomen and pelvis following IV administration of 95 mL of Optiray 320 intravenous contrast. Sagittal and coronal reformatted images were obtained on the technologist's workstation. DLP: 1300.16 mGy-cm (chest, abdomen and pelvis) FINDINGS: LIVER, GALLBLADDER, AND BILIARY TREE: The liver is normal in size, shape, and attenuation. No focal hepatic lesion or biliary ductal dilatation is present. The gallbladder contains a 3.9 cm lamellated gallstone. There is diffuse gallbladder wall thickening, and pericholecystic fluid and fat stranding are seen. PANCREAS: Unremarkable. SPLEEN: Unremarkable. ADRENAL GLANDS: Unremarkable. KIDNEYS AND URETERS: The kidneys are normal in size, shape, and attenuation. No hydronephrosis, hydroureter, or calculi seen. No perinephric stranding. BLADDER: Unremarkable. GASTROINTESTINAL TRACT: There is marked diverticulosis, without acute diverticulitis. No bowel obstruction, free intraperitoneal air or abscess is seen. The vermiform appendix appears normal. ABDOMINAL WALL: No significant hernia is appreciated. LYMPH NODES: Normal. VASCULAR: Unremarkable. PELVIC VISCERA: Question prior hysterectomy. No pelvic mass is seen. There is mild low-attenuation free fluid in the dependent right hemipelvis. OSSEOUS STRUCTURES: There is mild lumbar spondylosis. There is mild degenerative disc disease at L1-L2. No acute or aggressive osseous abnormality is seen. IMPRESSION: 1. Findings are consistent with cholelithiasis and acute cholecystitis. 2. There is marked diverticulosis, without acute diverticulitis. The vermiform appendix appears normal. 3. No bowel obstruction, free intraperitoneal air or abscess is seen. 4. There is a small amount of nonspecific free fluid in the dependent right hemipelvis. Percutaneous Cholecystostomy Tube on July 07, 2018 PROCEDURES: 1. Limited sonogram of the right upper abdominal quadrant. 2. Placement of an 8.5 Kiswahili locking all-purpose drainage catheter into the gallbladder. CLINICAL HISTORY: 57-year-old female with imaging findings consistent with acute cholecystitis. The patient is not a surgical candidate and therefore a cholecystostomy tube was requested. Unfortunately, the patient is on Plavix and aspirin. This was discussed in length with the patient and her primary team. The primary team felt that her deteriorating clinical status required urgent placement of today's cholecystostomy tube despite bleeding risks. The patient was in agreement. This was documented in the patient's medical record. INTERVENTIONAL RADIOLOGIST: Kevin Mayberry M.D. SEDATION: Intravenous conscious sedation was performed with full clinical nurse monitoring. An independent third-alliance party monitor nurse was utilized for full clinical nurse monitoring. The total sedation time was 10 minutes. A total of 0.5 mg of Versed and 25 mcg of fentanyl was utilized. 1% lidocaine was also used for local anesthetic. COMPLICATIONS: None ESTIMATED BLOOD LOSS: < 5 mL SPECIMENS: Culture CONSENT: Informed consent was obtained from the patient prior to the procedure. During this process, the procedure and potential alternatives were explained along with the intended outcome and benefits. The risks of the procedure, including the possibility of an unsuccessful procedure as well as the risk of not doing the procedure were discussed. The patient was given the opportunity to ask any questions regarding the procedure and appeared competent to make medical decisions. A signed consent form which documents this discussion was placed in the medical record. TECHNIQUE/FINDINGS: Appropriate pre-procedure medical history and imaging studies were reviewed. The patient was brought to the procedure room and placed in the supine position. A time out was performed. Prior to prepping the patient, a limited sonogram of the right upper quadrant was performed to localize the gallbladder and chose an appropriate access. The right upper abdomen was then prepped and draped in usual sterile fashion. The skin and subcutaneous tissues were anesthetized with lidocaine. Under direct ultrasound guidance, an 8.5 Kiswahili locking all-purpose drainage catheter was advanced trocar style into the gallbladder. The drainage catheter was then advanced off of the metal stylette into the gallbladder. The metal stylette was removed and the distal pigtail formed. Ultrasound imaging confirmed optimal positioning of the drainage catheter. Approximately 10 mL's of cloudy but fairly clear bile was aspirated out of the gallbladder. The catheter was then attached to a drainage bag via gravity drainage. The catheter was secured utilizing a single silk suture and StatLock device. A sterile dressing was placed. FINDINGS: 1. Distended gallbladder on ultrasound, filled with echogenic bile and gallstones. Gallbladder wall thickening was present. 2. Placement of properly positioned 8.5 Kiswahili all-purpose drainage catheter using ultrasound guidance. IMPRESSION: Successful placement of 8.5 Kiswahili percutaneous cholecystostomy drainage catheter. PLAN: -The patient was stable after the procedure and was transferred to the floor. -The tube should be open to external gravity drainage via drainage bag. -The drain needs to remain in place for at least 6 weeks to give time for the tract to mature. -The tube can be flushed with 10 mL normal saline twice daily if necessary. ECHO on July 07, 2018 FINDINGS Left Ventricle Normal size left ventricle. Normal left ventricular wall thickness. Normal left ventricular ejection fraction visually estimated at 60%. Normal left ventricular wall motion. Right Ventricle Normal right ventricular size and function. Right Atrium Normal right atrial size. Left Atrium Mild left atrial dilatation. Mitral Valve Mild mitral regurgitation. Mild mitral annular calcification. Aortic Valve Mild aortic valve calcification. No aortic stenosis. No aortic regurgitation. Tricuspid Valve Moderate tricuspid regurgitation. No evidence of pulmonary hypertension. Pulmonic Valve Pulmonic valve not well visualized, grossly normal. Trace pulmonic regurgitation. Pericardium No pericardial effusion. Great Vessels Normal size aortic root. CONCLUSIONS Normal size left ventricle. Normal left ventricular wall thickness. Normal left ventricular ejection fraction visually estimated at 60%. Mild left atrial dilatation. Mild mitral regurgitation. Mild mitral annular calcification. Mild mitral regurgitation. Mild aortic valve calcification. Moderate tricuspid regurgitation. No evidence of pulmonary hypertension. Raymond Longoria M.D. (Electronically Signed) Final Date: 08 July 2018 14:03 MEASUREMENTS (Male / Female) Normal Values 2D ECHO LV Diastolic Diameter PLAX 4.1 cm 4.2 - 5.9 / 3.9 - 5.3 cm LV Systolic Diameter PLAX 2.8 cm 2.1 - 4.0 cm LV Fractional Shortening PLAX 31.7 % 25 - 46 % LV Ejection Fraction 2D Teich 60.2 % IVS Diastolic Thickness 1.0 cm LVPW Diastolic Thickness 1.0 cm LV Relative Wall Thickness 0.5 RV Internal Dim ED PLAX 3.7 cm 1.9 - 3.8 cm LVOT Diameter 1.9 cm Aortic Root Diameter 2.8 cm LA Systolic Diameter LX 4.5 cm 3.0 - 4.0 / 2.7 - 3.8 cm LA Volume 58.0 cm 18 - 58 / 22 - 52 cm Ascending Aorta Diameter 3.0 cm DOPPLER AV Peak Velocity 145.0 cm/s AV Peak Gradient 8.4 mmHg AV Mean Velocity 107.0 cm/s AV Mean Gradient 5.0 mmHg AV Velocity Time Integral 29.7 cm LVOT Peak Velocity 93.2 cm/s LVOT Peak Gradient 3.5 mmHg LVOT Mean Velocity 64.1 cm/s LVOT Mean Gradient 2.0 mmHg LVOT Velocity Time Integral 20.8 cm LVOT Stroke Volume 59.0 cm AV Area Cont Eq vti 2.0 cm AV Area Cont Eq pk 1.8 cm MV Peak Velocity 92.5 cm/s MV Peak Gradient 3.4 mmHg MV Mean Velocity 58.6 cm/s MV Mean Gradient 2.0 mmHg Mitral E Point Velocity 85.9 cm/s Mitral A Point Velocity 82.4 cm/s Mitral E to A Ratio 1.0 MV PHT Velocity 104.0 cm/s MV Deceleration Elmore 316.0 cm/s MV Pressure Half Time 98.7 ms MV Area PHT 2.2 cm MV Deceleration Time 278.0 ms TR Peak Velocity 293.0 cm/s TR Peak Gradient 34.3 mmHg Right Atrial Pressure 5.0 mmHg Pulmonary Artery Systolic Pressure 39.3 mmHg Right Ventricular Systolic Pressure 39.3 mmHg PV Peak Velocity 96.5 cm/s PV Peak Gradient 3.7 mmHg PV Mean Velocity 61.7 cm/s PV Mean Gradient 2.0 mmHg PV Velocity Time Integral 18.4 cm LV E' Lateral Velocity 14.1 cm/s Mitral E to LV E' Lateral Ratio 6.1 LV E' Septal Velocity 6.0 cm/s Mitral E to LV E' Septal Ratio 14.2 Pertinent Lab Results: MICRO COMMENT: 10CC OF YELLOW CLOUDY GALLBLADDER FLUID RECEIVED IN [facility] Procedure Result > GRAM STAIN Final 07/08/18-154 WHITE BLOOD CELLS FEW SQUAMOUS CELLS RARE OTHER NO ORGANISMS SEEN > TRUNK AREA OR CULTURE Final 07/10/18-924 Scant growth of ESCHERICHIA COLI Called to/Readback by FLETCHER by [facility] 07/08/18 0826 1. ESCHERICHIA COLI RX AB ------ -- AMPICILLIN S CEFAZOLIN S AMOXICILLIN/CLAVULINIC ACID S AMPICILLIN/SULBACTAM S CIPROFLOXACIN S GENTAMICIN S TRIMETHOPRIM/SULFAMETHOXAZOLE S Disposition Summary Disposition Principal Diagnosis: Acute Cholecystitis Type II AZ or Demand Ischemia Sepsis 2/2 Acute Cholecystitis Urinary Tract Infection CAD s/p CABG + Stent January 2018 Cholelithiasis Factor V Leiden (heterozygous) Biliary Colic Transaminitis Hypophosphatemia Hypokalemia Additional Diagnosis: #as above Discharge Disposition: home or self care Discharge Instructions General Discharge Information Code Status: Full Code Patient's Diet: As tolerated Patient's Activity: As tolerated Follow-Up Instructions/Appts: - Please follow up with your radio talk show host Dr. Odom within 1-2 weeks of discharge. - Please follow up with your surgeon, Dr Murcia within 1-2 weeks of discharge. - Please follow up with your primary care physician within 1-2 weeks of discharge. Inform your primary care physician of this admission to [facility]. - Continue your current medications per discharge instructions. - Please watch for these problems: Fever, Chills, Nausea, Vomiting, Shortness of Breath, Productive Cough, Chest Pain/Discomfort, Abdominal Pain, Active Bleeding or Bloody urine/stool. Medications at Discharge Discharge Medications: Continue taking these medications: Lisinopril (Lisinopril) 2.5 MG TABLET 1 Tablet ORAL DAILY Comments: Last Taken: 07/09/18 Time: 0900 Clopidogrel Bisulfate (Clopidogrel) 75 MG TABLET 1 Tablet ORAL DAILY Comments: Last Taken: 07/09/18 Time: 0900 Metoprolol Tartrate (Metoprolol Tartrate) 25 MG TABLET 0.5 Tablet ORAL TWICE DAILY Comments: Last Taken: NOT GIVEN IN HOSPITAL Time: Cholecalciferol (Vitamin D3) (Vitamin D) 2,000 UNIT CAPSULE 2 Capsule ORAL DAILY Comments: Last Taken: 07/09/18 Time: 0900 Multivit-Min/FA/Lycopen/Lutein (Centrum Silver Tablet) 0.4 MG-300 MCG-250 MCG TABLET 1 Tablet ORAL DAILY Comments: Last Taken: NOT GIVEN IN HOSPITAL Time: Montelukast Sodium (Montelukast Sodium) 10 MG TABLET 1 Tablet ORAL DAILY Comments: Last Taken: NOT GIVEN IN HOSPITAL Time: Aspirin (Ecotrin*) 81 MG TABLET. 1 Tablet ORAL DAILY Comments: Last Taken: 07/09/18 Time: 0900 Fish Oil/Borage/Flax/Om3,6,9#1 (Triple Rincon Complex 3-6-9) (Unknown Strength) CAPSULE 2 Capsule ORAL TWICE DAILY Comments: Last Taken: NOT GIVEN IN HOSPITAL Time: Saccharomyces Boulardii (Probiotic) (Unknown Strength) CAPSULE Unknown Dose ORAL DAILY Comments: Last Taken: NOT GIVEN IN HOSPITAL Time: Evolocumab (Repatha Sureclick) 140 MG/ML PEN.INJCTR 140 Milligram SC EVERY 2 WEEKS Comments: Last Taken: NOT GIVEN IN HOSPITAL Time: Vitamin B Complex (Vitamin B Complex) 1 EACH CAPSULE 1 Capsule ORAL DAILY Comments: Last Taken: NOT GIVEN IN HOSPITAL Time: Cyclobenzaprine HCl (Cyclobenzaprine HCl) 5 MG TABLET 1 Tablet ORAL Every night as needed for Muscle Spasms Qty = 30 Comments: Last Taken: NOT GIVEN IN HOSPITAL Time: Start taking the following new medications: Ciprofloxacin HCl (Cipro) 500 MG TABLET 1 Tablet ORAL TWICE DAILY Qty = 17 No Refills Instructions: Take one pill twice a day Comments: . Copies To: Ilene LUNA,Alexandro Morton; Kathi LUNA,Ling Marshall; Divina LUNA,Uzair Rivera
--- NOTE | 2018-07-09 13:18 | PN- Cardiology ---
Subjective Subjective: Stable, no new cardiac symptoms. Sitting in bedside chair with no problems or complaints. Objective Vital Signs and I&Os Vital Signs Date Time Temp Pulse Resp B/P B/P Pulse O2 O2 Flow FiO2 Mean Ox Delivery Rate 07/09 0000 95 Room Air 07/09 0000 97.7 88 20 110/70 95 Room Air 07/08 2054 87 114/60 07/08 1600 98.5 86 20 108/60 94 Room Air Intake & Output 07/09 0807/09 0000 07/08 1600 07/08 0000 Intake Total 146 108 4206 1349 2453 Output Total 200 800 441 900 7636 Balance 155 79 [id number] 173 3965 Intake, IV 189 815 947 8005 1133 Intake, Oral 120 360 622 866 9622 Number 0 1 1 1 Bowel Movements Output, 50 140 Drainage Output, Urine [phone] Physical Exam: General Appearance Alert, Oriented X3, Cooperative, overweight, no Acute Distress Skin normal HEENT Atraumatic, PERRLA, EOMI, Mucous Membr. moist/pink Neck Supple, JVP normal, carotids appear normal bilaterally. No audible bruits Cardiovascular Regular Rate, Normal S1, Normal S2, No audible murmurs Lungs Clear to Auscultation and percussion bilaterally Abdomen Normal Bowel Sounds, Soft, No visible lesions. Soft, nondistended. Tender to deep palpation on particularly in RUQ. Negative valentine's. Positive CVA tenderness on the right. Extremities No Clubbing, No Edema Current Medications: Current Medications Sig/Kalyani Start time Last Medication Dose Route Stop Time Status Admin Acetaminophen 650 MG Q6P PRN 07/04 2330 AC 07/09 PO 0853 Aspirin Buffered 81 MG DAILY 07/05 900 AC 07/09 PO 0851 Ceftriaxone Sodium 1,000 MG 07/05 AC 07/08 IV 2057 Cholecalciferol 4,000 IU DAILY 07/05 900 AC 07/09 PO 0851 Clopidogrel Bisulfate 75 MG DAILY 07/05 900 AC 07/09 PO 0851 Cyclobenzaprine HCl 5 MG QPM PRN 07/05 0215 AC PO Docusate Sodium 100 MG DAILY NEEDED PRN 07/07 0500 AC 07/07 PO 0851 Heparin Sodium 0 .STK-MED ONE 07/09 532 DC (Porcine) .ROUTE Heparin Sodium 5,000 UNIT ONCE ONE 07/09 522 DC 07/09 (Porcine) IV 07/09 523 05 Heparin Sodium 25,000 UNIT Q24H 07/06 1745 DC 07/09 (Porcine) IV 09 Sodium Chloride 500 ML Hydromorphone HCl 2 MG Q4P PRN 07/07 1800 AC 07/08 PO 2239 Lisinopril 2.5 MG DAILY 07/05 0900 AC 07/09 PO 0851 Metoclopramide HCl 10 MG Q6P PRN 07/05 0400 AC 07/08 IV 1244 Metoprolol Tartrate 12.5 MG BID 07/05 0300 AC 07/09 PO 0851 Metronidazole 500 MG IQ8 07/06 1600 AC 07/09 N/A 1 UNIT IV 0846 Oxycodone/ 2 TAB Q6P PRN 07/06 1130 AC Acetaminophen PO Potassium Chloride 40 MEQ ONCE ONE 07/08 1800 DC 07/08 PO 07/08 1801 1735 Sodium Chloride 1,000 ML Q8H 07/06 1200 DC 07/08 IV 0226 Results Last 48 Hrs of Labs/Mics: Laboratory Tests 07/09/18929: APTT 87 H 07/09/18399: Anion Gap 7, Estimated GFR > 60, Glucose 98, Calcium 8.3 L, Phosphorus 3.7, Magnesium 1.9, Total Bilirubin 0.2, AST 26, ALT 35, Albumin 2.7 L, APTT 43 H, CBC w Diff NO MAN DIFF REQ, RBC 3.53 L, MCV 86.9, MCH 30.5, MCHC 35.1, RDW 14.1 , MPV 7.9, Gran % 60.9, Lymphocytes % 26.7, Monocytes % 10.5 H, Eosinophils % 1.6, Basophils % 0.3, Absolute Granulocytes 5.2, Absolute Lymphocytes 2.3, Absolute Monocytes 0.9 H, Absolute Eosinophils 0.1, Absolute Basophils 0 07/08/181999: APTT 111 *H 07/08/18529: Anion Gap 4 L, Estimated GFR > 60, Glucose 92, Calcium 7.3 L, Phosphorus 2.8, Magnesium 1.7, Total Bilirubin 0.5, AST 41 H, ALT 34, Albumin 2.4 L, APTT 64 H, CBC w Diff NO MAN DIFF REQ, RBC 3.54 L, MCV 87.8, MCH 29.9, MCHC 34.0, RDW 13.7, MPV 7.7, Gran % 76.8 H, Lymphocytes % 14.1 L, Monocytes % 8.3, Eosinophils % 0.5, Basophils % 0.3, Absolute Granulocytes 8.1 H, Absolute Lymphocytes 1.5, Absolute Monocytes 0.9 H, Absolute Eosinophils 0.1, Absolute Basophils 0 07/07/18 2213: APTT 38 H Assessment/Plan Assessment/Plan Assessment: 1. Factor V Leiden mutation 2. CAD, status post CABG in January 2018 3. Urinary tract infection 4. Biliary colic with possible early cholangitis 5. Positive troponin, likely type II [place] or demand ischemia secondary to sepsis. Plan: * Clinically stable from cardiac perspective. Cholecystostomy tube in place. * Continue cardiac medications; discontinue IV heparin today. Outpatient follow -up with Dr. Odom Continue telemetry? No
[2018-07-09] MEDS ORDERED: CIPRO500 M1 PO ×2 (14:59→15:26)
== END 2018-07-09 16:00 ==
LOC: ERH 16:57 → ERHI 23:15 → 2NA 23:15 → ENRESERV 07-05 01:34 → 2NA 07-05 01:44 → CRI 07-06 13:36
PROVIDERS: Internal Medicine; Internal Medicine Pulmonary Disease; Physical Medicine & Rehabilitation; Physical Medicine & Rehabilitation Pain Medicine; Physician Assistant; Student in an Organized Health Care Education/Training Program
PROC: 0F9430Z Drainage of Gallbladder with Drainage Device, Percutaneous Approach (ICD-10-PCS; principal; 2018-07-07)
DX: K80.00 Calculus of gallbladder with acute cholecystitis without obstruction (principal); I21.A1 Myocardial infarction type 2; D68.51 Activated protein C resistance; E83.39 Other disorders of phosphorus metabolism; E78.5 Hyperlipidemia, unspecified; N39.0 Urinary tract infection, site not specified; B96.20 Unspecified Escherichia coli [E. coli] as the cause of diseases classified elsewhere; I25.2 Old myocardial infarction; I25.10 Atherosclerotic heart disease of native coronary artery without angina pectoris; Z95.1 Presence of aortocoronary bypass graft; Z79.01 Long term (current) use of anticoagulants; Z88.7 Allergy status to serum and vaccine
CPT/HCPCS: 87075; CCU; 36415; 74177; 81001; 82436; 87040; 87070; 87086; 93005; 93010; 93306; 96361; 96365; 96375; 96376; 99291; J0696; J1644; J1650; J1885; J2405; J2765; J7042